=== PATIENT | female | born 1945 | race Caucasian/White ===

== ENCOUNTER 2019-08-04 09:48 | Emergency (ER) | payer MEDICARE, OTHER, SELFPAY ==
[2019-08-04 09:51] VITALS: BP 138/60; PULSE 75; RESP 17; TEMP 36.4; O2SAT 99; BMI 22.0
--- NOTE | 2019-08-04 09:51 | NURSING ---
NO OLD EKGS
--- NOTE | 2019-08-04 10:06 | RAD_ITS ---
STUDY: X-RAY CHEST REASON FOR EXAM: Female, 73 years old. CHEST PAIN SINCE SUNDAY, HX SCAR TISSUE IN B/L LUNGS TECHNIQUE: PA and lateral views of the chest. COMPARISON: None. FINDINGS: EKG electrodes are seen. Pectus excavatum deformity. Hyperinflation. There is no demonstrated pleural abnormality. Normal size heart. Normal mediastinum and sameera. Normal visualized pulmonary arteries. Normal visualized aortic arch and descending thoracic aorta. There is demineralization of the osseous structures. Normal visualized ribs, clavicles, and shoulders. There is no demonstrated abnormality of the visualized soft tissue structures of the upper abdomen. RAD/Chest PA and Lateral IMPRESSION: No acute abnormality is seen. Electronically Signed: Karson Cochran, at 10:26 EST , Service support ,
--- NOTE | 2019-08-04 10:06 | EKG12_ITS ---
Test Reason : CP Blood Pressure : / mmHG Vent. Rate : 070 BPM Atrial Rate : 070 BPM P-R Int : 108 ms QRS Dur : 072 ms QT Int : 396 ms P-R-T Axes : -16 058 012 degrees QTc Int : 427 ms Sinus rhythm with short NV Nonspecific ST-Segment Abnormality Confirmed by JOSE LUIS SINGH, MARCUS ([id number]), editor publications ISABELA CHESTER ([id number]) on 08/06/2019 9:02:23 AM Referred By: ITALO Confirmed By:MARCUS AMAYA MD
--- NOTE | 2019-08-04 10:07 | ED.DCSUM_ITS ---
History of Present Illness Chief Complaint: Chest Pain Informant: Patient Onset: Days - 2-3 Activity at onset: Rest - after lied down for bed Timing: Continuous, Waxes and wanes Quality: Aching Location: Left Chest - w/ radiation into left arm and shoulder and upper back, across shoulder blades Current Severity: Mild Maximum Severity: Moderate Worsened By: - - lying supine. Not Worsened By: Movement of Arm, Movement of Torso, Breathing, Coughing Relieved By: - - sitting up but does not resolve Associated Symptoms: Dyspnea - couple episodes. 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 She states since 2 days ago, she has had discomfort in the different place, more on the left side of her chest and radiating into her back and left shoulder and left arm, and more persistent. She states some of it comes and goes, waxes and wanes, but the jolanta st discomfort on the left side has been constant for over 2 days now. She felt a little short of breath at one point or another, but it was mild/transient, and all of her symptoms are nonpleuritic. She denies any recent hospitalization, surgery, prolonged immobilization, or travel out of the area. No history of DVT or PE. No leg pain or swelling. She took some ibuprofen and puffs from an inha ler the other night and it seemed to improve but she noted that lying down definitely makes the symptoms more prominent. 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 Her last stress test was around 2 years ago. She has never failed a stress test, and never needed a heart catheterization. CVD Risk Factors: Negative for: Hypertension, Diabetes, Hypercholesterolemia, Family History 1' </=55 - but several family members in their 70's of heart disease, Smoking - Past Medical History (1) Hypothyroidism Status: Chronic (2) Fibromyalgia Status: Chronic (3) Tarsal tunnel syndrome of right side Status: Chronic (4) Diastolic CHF, chronic Status: Chronic (5) GERD (gastroesophageal reflux disease) Status: Chronic Past Medical History - Allergies and Home Meds Allergies/Adverse Reactions: Allergies acetaminophen Allergy (Verified 08/04/19 09:50) Hives Primary Care Physician: Care Physician,No Primary [Primary Care Provider] - Surgical History: - - Oumar fundoplication Smoking Status: Never smoker Review of Systems General: Denies: Chills, Fever, Sweats Eyes: Denies: Visual changes - bilaterally, Diplopia ENT: Denies: Bilateral ear pain, Rhinorrhea, Sore throat Cardiovascular: Reports: Chest pain. Denies: Palpitations, Heart racing Respiratory: Reports: Dyspnea. Denies: Cough, Dyspnea on exertion Gastrointestinal: Denies: Abdominal pain, Nausea, Vomiting, Diarrhea, Melena, Hematochezia Genitourinary: Denies: Dysuria, Hematuria, Frequency Musculoskeletal: Reports: Back pain, Extremity Pain - left arm, not beyond elbow; no injury. Denies: Swelling Skin: Denies: Rash, Wounds Neurological: Denies: Headache, Weakness, Numbness Physical Exam Vital Signs/Narrative: Vital Signs Temp Pulse Resp BP Pulse Ox 08/04/19 09:51 97.6 F L 75 17 138/60 H 99 Inital Vital Signs reviewed: Yes General: Well nourished, Well developed, No Acute Distress - well-appearing Head: Normocephalic, Atraumatic Eyes: Perrl, EOMI ENT: Moist mucous membranes, No rhinorrhea Neck: Supple, Nontender, No lymphadenopathy, No JVD Cardiovascular: Regular rate, Regular rhythm, No murmurs, Normal S1, Normal S2, - - Equal bilateral 2+/4 radial pulses, symmetric. Negative for: Tachycardia Respiratory: No distress, CTA bilaterally, Chest nontender Abdomen: Soft, Nontender, Nondistended, Normal bowel sounds. Negative for: P ulsatile mass Back: Nontender, Normal Inspection Extremities: Nontender, No edema. Negative for: Calf Tenderness Skin: Normal color, No rash, No Trauma Neurological: Alert, Oriented x3, Cranial nerves II-XII grossly intact, Normal Strength, Normal Sensation, Normal Gait Psychological: Normal affect, Normal Mood Diagnostic/Tx/Re-eval Impressions Chest X-Ray 08/04/19 10:06 IMPRESSION: No acute abnormality is seen. Electronically Signed: Karson Cochran, at 10:26 EST , Service support , 08/04/19 10:06 Chest PA and Lateral [RAD] Stat Laboratory Results 08/04/19 08/04/19 10:05 10:05 WBC 4.6 RBC 4.40 Hgb 13.1 Hct 40.4 MCV 91.8 MCH 29.8 MCHC 32.4 RDW Std Deviation 44.5 H RDW Coeff of Edy 13.1 Plt Count 230 MPV 10.5 Immature Gran % (Auto) 0.200 Neut % (Auto) 58.7 Lymph % (Auto) 30.7 [place] % (Auto) 8.5 Eos % (Auto) 1.5 Baso % (Auto) 0.4 Absolute Neuts (auto) 2.7 Absolute Lymphs (auto) 1.41 Nucleated RBC % 0 Sodium 142 Potassium 3.9 Chloride 108 H Carbon Dioxide 30.0 Anion Gap 4 L BUN 23 H Creatinine 0.93 Estim Creat Clear Calc 49.20 Est GFR (MDRD) Af Amer 76 Est GFR (MDRD) Non-Af 63 BUN/Creatinine Ratio 24.7 H Glucose 81 Calcium 9.2 Troponin I < 0.015 - Rhythm Strip Rhythm Strip: Sinus Rhythm Rate: 70 Ectopy: None - EKG Initial EKG Interpretation: Sinus Rhythm, No Acute Injury Pattern - normal EKG Prior: No Prior Treatment: Aspirin, GI Cocktail Repeat Eval: Pain Free MICHAEL Risk: Age >/= 65 Score: 1 - Medical Decision Making Patient symptoms almost completely resolved after GI cocktail. She was also given aspirin. She noticed a very significant difference due to swallowing a GI cocktail. Her work-up is very unremarkable. Her EKG is normal, her enzymes are negative after 2 days of constant discomfort, and her chest x-ray shows no evidence of mediastinal widening. Patient is reassured I suspect this is esophageal in nature. I advised that she take a PPI for 2 weeks and follow-up, states she lives here now needs a PCP to whom she was referred, she was given the pamphlet with all of the area primary care doctor sign of her to choose. She is comfortable with this overall plan we discussed reasons to return. ED Disposition - Plan for ED Patient: Disposition: Home or Assisted Living Diagnosis: Non-cardiac chest pain Instructions: CHEST PAIN, NonCardiac Prescriptions: Pantoprazole Sodium [Protonix] 40 mg PO DAILY #14 tab Transmission Status: Pending to [id number] Referrals: Doctor,Your [STAFF PHYSICIAN] - 1-2 Weeks (see pamphlet attached)
[2019-08-04 10:18] LABS: Absolute Lymphocyte Count 1.41 X10^3/uL (0.83-4.51); Absolute Neutrophil Count 2.7 X10^3/uL (2.0-7.7); Basophil# 0.02 X10^3/uL; Basophil% 0.4 % (0-1); Eosinophil# 0.07 X10^3/uL; Eosinophils% 1.5 % (0-5); Hematocrit 40.4 % (37-47); Hemoglobin 13.1 g/dL (12.0-15.0); Lymphocyte # 1.41 X10^3/ul (4.0); Lymphocyte % 30.7 % (19-41); Mean Corp Hgb Conc 32.4 g/dL (32-36); Mean Corpuscular Hgb 29.8 pg (27.0-32.0); Mean Corpuscular Volume 91.8 fL (81-99); Mean Platelet Vol. 10.5 fl (6.2-12.0); Monocyte# 0.39 X10^3/uL; Monocyte% 8.5 % (0-10); NRBC Flagged by Analyzer 0 % (0-5); Neutrophil # 2.69 X10^3/uL (2.7-7.7); Neutrophil % 58.7 % (47-70); Platelet Count 230 K/mm3 (150-450); RBC Distribution Width CV 13.1 % (11.6-14.6); RBC Distribution Width SD 44.5 fl (35.1-43.9); White Blood Count 4.6 K/mm3 (4.4-11.0)
[2019-08-04 10:27] VITALS: O2SAT 99
[2019-08-04] MEDS: Aspirin 81 MG TAB.CHEW 324 MG PO (10:29)
[2019-08-04] MEDS: Mag Hydrox/Al Hydrox/Simeth 30 ML UDC PO (10:30)
[2019-08-04] MEDS: 0.9% Normal Saline 1,000 ML 150 ML IV (10:30)
[2019-08-04 10:31] LABS: Anion Gap 4 (5-15); BUN 23 mg/dL (7-18); BUN/Creat Ratio 24.7 RATIO (10-20); Calcium,Total 9.2 mg/dL (8.5-10.1); Chloride 108 mmol/L (98-107); Creatinine, Serum 0.93 mg/dL (0.55-1.02); EST Glomerular Filtration Rate 63 mL/min (>60); Est Glom Filt Rate - Afr Amer 76 mL/min (>60); Glucose 81 mg/dL (74-106); Potassium 3.9 mmol/L (3.5-5.1); Sodium Level 142 mmol/L (136-145)
[2019-08-04 11:21] VITALS: BP 141/69; PULSE 62; RESP 19; O2SAT 99
== END 2019-08-04 11:23 | disposition home or self-care (01) ==
LOC: ED 11:00
PROVIDERS: Emergency Provider Emergency Medicine
DX: R07.89 Other chest pain (principal); I50.32 Chronic diastolic (congestive) heart failure; R06.00 Dyspnea, unspecified; E03.9 Hypothyroidism, unspecified; M79.7 Fibromyalgia; K21.9 Gastro-esophageal reflux disease without esophagitis; Z79.899 Other long term (current) drug therapy
CPT/HCPCS: 71046; 80048; 84484; 85025; 93005; 96360; 99284; J7030; A4216

== ENCOUNTER → 2019-10-30 11:25 | Outpatient (CLI) | payer MEDICARE, OTHER, SELFPAY ==
[2019-10-29 09:54] VITALS: BMI 22.0
== END ==
PROVIDERS: Visit Provider Specialist
DX: R00.2 Palpitations (principal); R42 Dizziness and giddiness
CPT/HCPCS: 93225; 93226

== ENCOUNTER → 2019-11-27 | Outpatient (CLI) | payer MEDICARE, OTHER, SELFPAY ==
[2019-10-29 09:54] VITALS: BMI 22.0
[2019-11-27 13:09] LABS: Free T3 2.2 pg/mL (2.18-3.98); T4 Total, Thyroxin 11.4 ug/dL (4.8-13.9); Thyroid Stim Hormone (TSH) 0.67 uIU/mL (0.358-3.74)
== END | disposition home or self-care (01) ==
PROVIDERS: PCP Family Medicine; Referring Provider Specialist; Visit Provider Specialist
DX: E03.9 Hypothyroidism, unspecified (principal); R00.2 Palpitations
CPT/HCPCS: 36415; 84436; 84443; 84481

== ENCOUNTER → 2020-02-03 14:54 | Outpatient (CLI) | payer MEDICARE, OTHER, SELFPAY ==
[2019-10-29 09:54] VITALS: BMI 22.0
--- NOTE | 2020-02-03 14:55 | RAD_ITS ---
HISTORY: UPPER NECK AND BACK PAIN, NO KNOWN INJURY ADDITIONAL HISTORY: None provided. EXAMINATION/TECHNIQUE: XR Spine Thoracic 3 Views Number of images including paperwork: 4 COMPARISON: None FINDINGS: VERTEBRAE: No acute fracture. VERTEBRAL ALIGNMENT: No traumatic subluxation. DISKS AND JOINTS: Mild discogenic degenerative changes. SOFT TISSUES: Unremarkable paraspinous soft tissues. RAD/Thoracic Spine 3 Views IMPRESSION: No acute findings. Mild degenerative changes. at 2353 Reported and signed by: Brittany Bales MD Electronically Signed: Brittany Bales MD at 23:53 EDT Tel , Service support ,
--- NOTE | 2020-02-03 14:55 | RAD_ITS ---
HISTORY: UPPER NECK AND BACK PAIN, NO KNOWN INJURY ADDITIONAL HISTORY: None provided. EXAMINATION/TECHNIQUE: XR Spine Cervical 4 or 5 Views Number of images including paperwork: 5 COMPARISON: None FINDINGS: VERTEBRAE: No acute fracture. VERTEBRAL ALIGNMENT: No traumatic subluxation. DISKS AND JOINTS: Disc space heights are preserved. Mild facet and uncovertebral degenerative changes. SOFT TISSUES: Unremarkable paraspinous soft tissues. Artifact from hearing aids. RAD/Cerv Spine 4 or 5 Views IMPRESSION: No acute findings. Mild degenerative changes. at 2343 Reported and signed by: Brittany Bales MD Electronically Signed: Brittany Bales MD at 23:42 EDT Tel , Service support ,
== END ==
PROVIDERS: PCP Family Medicine; Referring Provider Family Medicine; Visit Provider Family Medicine
DX: M54.2 Cervicalgia (principal); M54.9 Dorsalgia, unspecified
CPT/HCPCS: 72050; 72072

== ENCOUNTER → 2020-06-01 11:00 | Outpatient (CLI) | payer MEDICARE, OTHER, SELFPAY ==
[2020-05-24 11:17] VITALS: BMI 21.9
--- NOTE | 2020-06-01 11:01 | ECHOD_ITS ---
Reason For Study: CP Procedure This was a 2D Doppler, Color Flow transthoracic echocardiogram. The study was technically difficult. Contrast injection was performed. Exam performed in department. Left Ventricle Normal LV size. The estimated ejection fraction is 60 %. No evidence for diastolic dysfunction. No regional wall motion abnormalities noted. Right Ventricle Normal RV size. Normal systolic function. Atria Normal left atrium. Normal right atrium. No doppler evidence for ASD. Mitral Valve There is no mitral valve stenosis. No mitral valve insufficiency. Tricuspid Valve There is no tricuspid stenosis. Trivial tricuspid valve insufficiency. Pulmonary artery systolic pressure is 25-30 mmHg. Aortic Valve Trisinus/trileaflet aortic valve. There is no aortic stenosis. No aortic valve insufficiency. Pulmonic Valve There is no pulmonic valvular stenosis. No pulmonic valve insufficiency. Great Vessels Normal aortic root. Pericardium/Pleural No pericardial effusion. Medication 22 gauge I.V. with prn adaptor inserted into right arm. Diluted definity 2ml given slow IV push to enhance endocardial definition. MMode/2D Measurements & Calculations LVIDd: 3.9 cm IVSd: 0.91 cm Ao root diam: 2.8 cm LVIDs: 2.2 cm LVPWd: 0.93 cm LA dimension: 2.8 cm RVDd: 3.3 cm FS: 43.2 % LAV(MOD-bp): 37.4 ml LA A4 area: 14.9 cm2 RA A4 area: 14.9 cm2 LAV(MOD-bp) Indexed: 22.5 ml/m2 LAV(MOD-sp2): 41.1 ml LAV(MOD-sp4): 32.3 ml Time Measurements MV dec time: 0.26 sec Doppler Measurements & Calculations MV E max herber: 85.7 cm/sec Lat Peak E' Herber: 11.0 cm/sec Med Peak E' Herber: 9.4 cm/sec MV A max herber: 71.0 cm/sec E/E' lat: 7.8 E/E' med: 9.2 MV E/A: 1.2 MV V2 max: 97.4 cm/sec MV P1/2t max herber: 97.4 cm/sec Ao V2 max: 141.9 cm/sec MV max P.8 mmHg MV P1/2t: 99.4 msec Ao max P.1 mmHg MV V2 mean: 47.6 cm/sec MV dec slope: 286.9 cm/sec2 MV mean P.1 mmHg MV V2 VTI: 32.7 cm MVA(P1/2t): 2.2 cm2 LV V1 max: 125.3 cm/sec PA V2 max: 100.2 cm/sec TR max herber: 273.5 cm/sec LV V1 max P.3 mmHg TR max P.9 mmHg Interpretation Summary The estimated ejection fraction is 60 %. No evidence for diastolic dysfunction. The study was technically difficult. Contrast injection was performed. Ordering Physician: Ludwig Clark Referring Physician: Moris Conway Performed By: Sherman Bardales RCS
== END ==
PROVIDERS: PCP Family Medicine; Referring Provider Specialist; Visit Provider Specialist
DX: R06.00 Dyspnea, unspecified (principal); R06.02 Shortness of breath; R07.9 Chest pain, unspecified
CPT/HCPCS: 93306; Q9957; A4216; C8929

== ENCOUNTER → 2020-07-16 13:23 | Outpatient (CLI) | payer MEDICARE, OTHER, SELFPAY ==
[2020-06-20 11:39] VITALS: BMI 23.3
[2020-07-16 15:43] LABS: Absolute Lymphocyte Count 1.41 X10^3/uL (0.83-4.51); Absolute Neutrophil Count 3.1 X10^3/uL (2.0-7.7); Basophil# 0.03 X10^3/uL; Basophil% 0.6 % (0-1); Eosinophil# 0.15 X10^3/uL; Eosinophils% 2.9 % (0-5); Hematocrit 39.1 % (37-47); Hemoglobin 12.2 g/dL (12.0-15.0); Lymphocyte # 1.41 X10^3/ul (4.0); Lymphocyte % 27.6 % (19-41); Mean Corp Hgb Conc 31.2 g/dL (32-36); Mean Corpuscular Hgb 29.3 pg (27.0-32.0); Mean Corpuscular Volume 93.8 fL (81-99); Mean Platelet Vol. 11.4 fl (6.2-12.0); Monocyte# 0.39 X10^3/uL; Monocyte% 7.6 % (0-10); NRBC Flagged by Analyzer 0 % (0-5); Neutrophil # 3.12 X10^3/uL (2.7-7.7); Neutrophil % 61.1 % (47-70); Platelet Count 242 K/mm3 (150-450); RBC Distribution Width CV 12.7 % (11.6-14.6); RBC Distribution Width SD 43.8 fl (35.1-43.9); Red Blood Count 4.17 M/mm3 (4.2-5.4); White Blood Count 5.1 K/mm3 (4.4-11.0)
[2020-07-16 15:54] LABS: Anion Gap 3 (5-15); BUN 18 mg/dL (7-18); BUN/Creat Ratio 20.7 RATIO (10-20); Calcium,Total 9.1 mg/dL (8.5-10.1); Chloride 110 mmol/L (98-107); Creatinine, Serum 0.87 mg/dL (0.55-1.02); EST Glomerular Filtration Rate 68 mL/min (>60); Est Glom Filt Rate - Afr Amer 82 mL/min (>60); Glucose 92 mg/dL (74-106); Sodium Level 143 mmol/L (136-145); Thyroid Stim Hormone (TSH) 0.24 uIU/mL (0.358-3.74)
== END ==
PROVIDERS: PCP Family Medicine; Visit Provider Family Medicine
DX: E03.9 Hypothyroidism, unspecified (principal); R53.83 Other fatigue
CPT/HCPCS: 36415; 80048; 84443; 85025

== ENCOUNTER → 2020-07-29 09:03 | Outpatient (CLI) | payer MEDICARE, OTHER, SELFPAY ==
[2020-06-20 11:39] VITALS: BMI 23.3
--- NOTE | 2020-07-29 12:40 | PFT ---
INTRODUCTION: The patient is a 74-year-old female that presents for pulmonary function studies secondary to a diagnosis of persistent cough. Respiratory therapy reports good patient effort. Bronchodilators were used during testing. INTERPRETATION: Forced expiration spirometry demonstrates no evidence of a large airways obstructive ventilatory defect. There was, nevertheless, a significant bronchodilator response noted. Spirograms are of good quality and plateau normally. Body plethysmography was performed and revealed an elevated RV to 140% of predicted, indicative of underlying air trapping. Diffusing capacity by single breath CO was within normal limits at 91% of predicted. IMPRESSION: Stigmata of small airways disease with significant bronchodilator response and evidence of air trapping.
== END ==
PROVIDERS: PCP Family Medicine; Referring Provider Family Medicine; Visit Provider Family Medicine
DX: J42 Unspecified chronic bronchitis (principal); R06.00 Dyspnea, unspecified
CPT/HCPCS: 94060; 94726; 94729

== ENCOUNTER → 2020-08-03 13:15 | Outpatient (CLI) | payer MEDICARE, OTHER, SELFPAY ==
[2020-06-20 11:39] VITALS: BMI 23.3
[2020-08-03 13:15] VITALS: PULSE 80; PULSE 81; PULSE 90; PULSE 93; PULSE 94; PULSE 97; PULSE 99; O2SAT 94; O2SAT 95; O2SAT 96; O2SAT 97; O2SAT 98; O2SAT 99
--- NOTE | 2020-08-03 14:55 | PCM.PSN.6M ---
PSN 6 Minute Walk Test - 6 Minute Walk Test 6 Minute Walk Test: 6 Minute Walk Test PSN:6-Minute Walk Test Start: 08/03/20 13:50 Freq: Status: Active Protocol: RESP.6MINW Document 08/03/20 13:15 [facility] (Rec: 08/03/20 13:53 [facility] [id number]) 6 Minute Walk Test Date Performed 08/03/20 Time Performed 13:15 Height 5 ft 2 in Weight: 58.967 kg Weight in Pounds 130.[address]: Dr Conway Assistive device used: None Pre-test Oxygen Delivery Method Room Air Pulse Ox (%) 95 Pulse Rate (60-100 beats/min) 81 Dyspnea Janet Scale (0-10) 0.5 Exertion Janet Scale (6-20) 6 1st minute Oxygen Delivery Method Room Air Pulse Ox (%) 97 Pulse Rate (60-100 beats/min) 90 2nd minute Oxygen Delivery Method Room Air Pulse Ox (%) 96 Pulse Rate (60-100 beats/min) 94 3rd minute Oxygen Delivery Method Room Air Pulse Ox (%) 99 Pulse Rate (60-100 beats/min) 93 4th minute Oxygen Delivery Method Room Air Pulse Ox (%) 94 Pulse Rate (60-100 beats/min) 97 5th minute Oxygen Delivery Method Room Air Pulse Ox (%) 98 Pulse Rate (60-100 beats/min) 99 6th minute Oxygen Delivery Method Room Air Pulse Ox (%) 97 Pulse Rate (60-100 beats/min) 97 Dyspnea Janet Scale (0-10) 3 Exertion Janet Scale (6-20) 11 Post-test Oxygen Delivery Method Room Air Pulse Ox (%) 98 Pulse Rate (60-100 beats/min) 80 Full Laps Walked 17 Partial Lap, Number of Tiles Walked 0 Total Distance Walked (ft) 1003 - Interpretation Interpretation: Patient was able to ambulate 1003 feet over the course of 6 minutes on room air with no assistive devices or breaks. The patient experienced no significant desaturation, but did have a peak heart rate of 99 bpm. These findings are consistent with deconditioning. - Recommendations Recommendations: No supplemental oxygen is indicated at this time.
== END ==
PROVIDERS: PCP Family Medicine; Referring Provider Family Medicine; Visit Provider Family Medicine
DX: J42 Unspecified chronic bronchitis (principal); R06.00 Dyspnea, unspecified
CPT/HCPCS: 94618

== ENCOUNTER → 2020-09-21 14:09 | Outpatient (CLI) | payer MEDICARE, OTHER, SELFPAY ==
[2020-09-21 13:07] VITALS: BMI 24.3
[2020-09-21 16:04] LABS: Absolute Lymphocyte Count 1.84 X10^3/uL (0.83-4.51); Absolute Neutrophil Count 4.1 X10^3/uL (2.0-7.7); Basophil# 0.03 X10^3/uL; Basophil% 0.4 % (0-1); Eosinophil# 0.14 X10^3/uL; Eosinophils% 2.1 % (0-5); Hematocrit 42.3 % (37-47); Hemoglobin 13.5 g/dL (12.0-15.0); Lymphocyte # 1.84 X10^3/ul (4.0); Lymphocyte % 27.6 % (19-41); Mean Corp Hgb Conc 31.9 g/dL (32-36); Mean Corpuscular Hgb 30.7 pg (27.0-32.0); Mean Corpuscular Volume 96.1 fL (81-99); Mean Platelet Vol. 11.1 fl (6.2-12.0); Monocyte% 7.5 % (0-10); NRBC Flagged by Analyzer 0 % (0-5); Neutrophil # 4.14 X10^3/uL (2.7-7.7); Neutrophil % 62.1 % (47-70); Platelet Count 271 K/mm3 (150-450); RBC Distribution Width CV 12.8 % (11.6-14.6); RBC Distribution Width SD 45.4 fl (35.1-43.9); White Blood Count 6.7 K/mm3 (4.4-11.0)
[2020-09-21 16:38] LABS: AST(SGOT) 20 U/L (15-37); Alanine Aminotransfer ALT/SGPT 22 U/L (13-56); Albumin, Serum 3.6 g/dL (3.2-5.0); Alkaline Phosphatase 88 U/L (45-117); Anion Gap 4 (5-15); BUN 24 mg/dL (7-18); BUN/Creat Ratio 32.7 RATIO (10-20); Calcium,Total 9.1 mg/dL (8.5-10.1); Chloride 107 mmol/L (98-107); Creatinine, Serum 0.73 mg/dL (0.55-1.02); EST Glomerular Filtration Rate 82 mL/min (>60); Est Glom Filt Rate - Afr Amer 100 mL/min (>60); Free T3 2.5 pg/mL (2.18-3.98); Globulin 3.5 g/dL (2.2-4.2); Glucose 84 mg/dL (74-106); Protein, Total 7.1 g/dL (6.4-8.2); Sodium Level 141 mmol/L (136-145); T4 Free Direct 1.46 ng/dL (0.76-1.46); T4 Total, Thyroxin 12.2 ug/dL (4.8-13.9); Thyroid Stim Hormone (TSH) 0.34 uIU/mL (0.358-3.74)
== END ==
PROVIDERS: PCP Family Medicine; Referring Provider Specialist; Visit Provider Specialist
DX: R06.00 Dyspnea, unspecified (principal)
CPT/HCPCS: 36415; 80053; 84436; 84439; 84443; 84481; 85025

== ENCOUNTER → 2020-10-04 09:47 | Outpatient (CLI) | payer MEDICARE, OTHER, SELFPAY ==
[2020-09-21 13:07] VITALS: BMI 24.3
--- NOTE | 2020-10-04 09:49 | ECHOD_ITS ---
Reason For Study: DYSPNEA Procedure This was a 2D Doppler, Color Flow transthoracic echocardiogram. The study was technically difficult. Exam performed in department. Left Ventricle Normal LV size. The estimated ejection fraction is 60 %. No evidence for diastolic dysfunction. No regional wall motion abnormalities noted. Right Ventricle Normal RV size. Normal systolic function. Atria Normal left atrium. Normal right atrium. No doppler evidence for ASD. Mitral Valve There is no mitral valve stenosis. Trivial mitral valve insufficiency. Tricuspid Valve There is no tricuspid stenosis. Trivial tricuspid valve insufficiency. Pulmonary artery systolic pressure is 25 mmHg. Aortic Valve Trisinus/trileaflet aortic valve. There is no aortic stenosis. No aortic valve insufficiency. Pulmonic Valve There is no pulmonic valvular stenosis. No pulmonic valve insufficiency. Great Vessels Normal aortic root. The inferior vena cava is dilated. Pericardium/Pleural No pericardial effusion. MMode/2D Measurements & Calculations LVIDd: 3.7 cm IVSd: 0.78 cm Ao root diam: 3.2 cm LVIDs: 2.6 cm LVPWd: 0.77 cm RVDd: 3.0 cm FS: 29.2 % LAV(MOD-bp): 18.6 ml LA A4 area: 10.0 cm2 LA dimension(2D): 2.4 cm LAV(MOD-bp) Indexed: 11.7 ml/m2 LAV(MOD-sp2): 21.1 ml LAV(MOD-sp4): 15.8 ml RA A4 area: 12.1 cm2 Time Measurements MV dec time: 0.38 sec Doppler Measurements & Calculations MV E max herber: 54.1 cm/sec Lat Peak E' Herber: 8.5 cm/sec Med Peak E' Herber: 5.4 cm/sec MV A max herber: 64.8 cm/sec E/E' lat: 6.4 E/E' med: 10.1 MV E/A: 0.84 Ao V2 max: 106.8 cm/sec LV V1 max: 95.2 cm/sec PA V2 max: 83.6 cm/sec Ao max P.6 mmHg LV V1 max P.6 mmHg TR max herber: 223.2 cm/sec TR max P.9 mmHg ECHO/Echo Complete Interpretation Summary The estimated ejection fraction is 60 %. No evidence for diastolic dysfunction. Trivial mitral valve insufficiency. The inferior vena cava is dilated Ordering Physician: Ludwig Clark Referring Physician: KATH CLINE Performed By: Tatiana Cortes, RDCS, RVT
== END ==
PROVIDERS: PCP Family Medicine; Referring Provider Specialist; Visit Provider Specialist
DX: R06.00 Dyspnea, unspecified (principal); R06.02 Shortness of breath
CPT/HCPCS: 93306

== ENCOUNTER → 2020-10-11 15:48 | Outpatient (CLI) | payer MEDICARE, OTHER, SELFPAY ==
[2020-10-05 14:21] VITALS: BMI 24.7
--- NOTE | 2020-10-11 15:51 | CT_ITS ---
INDICATION: chest pain, shortness of breath EXAMINATION: CTA Chest WO/W Contrast Injection TECHNIQUE: Helically acquired images were obtained of the chest following IV contrast. A radiation dose optimization technique was used for this scan. 3-D post processing images including MIPS were reviewed. IV Contrast dosage and agent: 100 cc [id number]-[id number] COMPARISON: None. FINDINGS: Lungs: Scattered subsegmental atelectasis. Minimal emphysematous changes. Mediastinum: The cardiomediastinal silhouette is not enlarged. No mediastinal, hilar or axillary adenopathy. Mild aortic arch and coronary artery calcifications. No obvious filling defect seen within the visualized pulmonary arteries. Pleura: Biapical pleural scarring. Bones/Soft tissues: Mild scattered degenerative changes of the visualized spine. Upper abdomen: Questionable bilateral hydronephrosis versus pelviectasis. CT/CTA Chest W/WO Contrast IMPRESSION: No acute abnormalities. Specifically, no evidence of pulmonary emboli to the segmental level. Questionable bilateral hydronephrosis versus pelviectasis. Electronically Signed: Edmond Collier MD at 22:38 EDT Tel , Service support ,
== END ==
PROVIDERS: PCP Family Medicine; Referring Provider Specialist; Visit Provider Specialist
DX: R07.9 Chest pain, unspecified (principal); R06.00 Dyspnea, unspecified; R00.2 Palpitations; R42 Dizziness and giddiness
CPT/HCPCS: 71275; Q9967

== ENCOUNTER → 2020-10-22 09:59 | Outpatient (CLI) | payer MEDICARE, OTHER, SELFPAY ==
[2020-10-05 14:21] VITALS: BMI 24.7
--- NOTE | 2020-10-22 10:02 | US_ITS ---
STUDY: RENAL ULTRASOUND - COMPLETE REASON FOR EXAM: Female, 75 years old. PELVICALIECTASIS TECHNIQUE: Ultrasound evaluation of the kidneys was performed with real-time and static mancia-scale imaging. COMPARISON: None. FINDINGS: RIGHT KIDNEY: Normal location of the right kidney, which is normal in size. The right kidney measures 10.7 cm x 6.1 cm x 4 cm. There is a normal cortex of the right kidney. The renal cortex measures 1.2 cm. There is no right renal mass or cyst. There are no right renal calculi. There is moderate hydronephrosis of the right kidney. DISTAL RIGHT URETER: There is non-visualization of the distal right ureter. There is no demonstrated right ureterovesical junction calculus. There is a visualized right ureteral jet. LEFT KIDNEY: Normal location of the left kidney, which is normal in size. The left kidney measures 10.97 x 5.5 cm x 5.8 cm. There is a normal cortex of the left kidney. The renal cortex measures 1.3 cm. There is no left renal mass or cyst. There is a 3 mm x 4 mm x 3 mm nonobstructive calculus in the lower pole calyx of the left kidney. There is moderate hydronephrosis of the left kidney. DISTAL LEFT URETER: There is non-visualization of the distal left ureter. There is no demonstrated left ureterovesical junction calculus. There is a visualized left ureteral jet. BLADDER: The distended urinary bladder has a volume of 197.5 ml. There is a normal wall thickness of the distended urinary bladder. There is no demonstrated mass within the urinary bladder. There are no demonstrated bladder calculi. US/Kidney and Bladder IMPRESSION: Moderate degree of bilateral hydronephrosis. 3 mm x 4 mm x 3 mm nonobstructive calculus in the lower pole calyx of the left kidney. Electronically Signed: Karson Cochran MD at 13:09 EDT , Service support ,
== END ==
PROVIDERS: PCP Family Medicine; Referring Provider Family Medicine; Visit Provider Family Medicine
DX: N28.89 Other specified disorders of kidney and ureter (principal)
CPT/HCPCS: 76770

== ENCOUNTER → 2020-10-27 09:56 | Outpatient (CLI) | payer MEDICARE, OTHER, SELFPAY ==
[2020-10-05 14:21] VITALS: BMI 24.7
--- NOTE | 2020-10-27 10:02 | MRI_ITS ---
STUDY: MRI LUMBAR SPINE WITHOUT CONTRAST REASON FOR EXAM: Female, 75 years old. RADICULOPATHY, TECHNIQUE: Standardized fat and water weighted pulse sequences were obtained in the sagittal and axial planes. COMPARISON: None FINDINGS: T12-L1: Normal endplates. Normal disc height, hydration and morphology. Normal bilateral facet joints. Normal central canal and bilateral lateral recesses. Normal bilateral intervertebral neural foramina. Normal lumbar lordosis. Mild dextroscoliosis centered at L2/L3. Normal conus medullaris that terminates at the L1/L2. L1-2: Normal endplates. Normal disc height, hydration and morphology. Normal bilateral facet joints. Normal central canal and bilateral lateral recesses. Normal bilateral intervertebral neural foramina. L2-3: Mild bilobed disc protrusion produces mild spinal stenosis and mild bilateral neural foraminal stenosis. L3-4: Mild bilateral facet hypertrophy and ligament flavum hypertrophy. Mild bilobed disc protrusion produces mild spinal stenosis and mild bilateral neural foraminal stenosis. L4-5: Small right foraminal protrusion produces mild right neural foraminal stenosis. No central spinal stenosis. L5-S1: Moderate broad disc protrusion produces moderate spinal stenosis with moderate bilateral lateral recess stenosis with abutment of the S1 nerve roots bilaterally and moderate right neural foraminal stenosis and mild left neural foraminal stenosis. Normal visualized sacral ala. Normal visualized paraspinous soft tissue structures. MRI/Spine Lumbar (Routine) IMPRESSION: Multilevel degenerative changes, as described above. Electronically Signed: John Benitez MD at 16:02 EDT Tel , Service support ,
== END ==
PROVIDERS: PCP Family Medicine
DX: S33.5XXA Sprain of ligaments of lumbar spine, initial encounter (principal); M54.17 Radiculopathy, lumbosacral region; X58.XXXA Exposure to other specified factors, initial encounter; Y93.9 Activity, unspecified; Y92.9 Unspecified place or not applicable; Y99.9 Unspecified external cause status
CPT/HCPCS: 72148

== ENCOUNTER → 2020-11-02 | Outpatient (CLI) | payer MEDICARE, OTHER, SELFPAY ==
[2020-10-05 14:21] VITALS: BMI 24.7
== END | disposition home or self-care (01) ==
LOC: LABSPEC 16:53
PROVIDERS: PCP Family Medicine; Referring Provider Nurse Practitioner Adult Health
DX: R82.998 Other abnormal findings in urine (principal)
CPT/HCPCS: 87086; 87088

== ENCOUNTER → 2020-11-11 10:39 | Outpatient (CLI) | payer MEDICARE, OTHER, SELFPAY ==
[2020-10-05 14:21] VITALS: BMI 24.7
--- NOTE | 2020-11-11 10:43 | CT_ITS ---
STUDY: CT ABDOMEN AND PELVIS WITH AND WITHOUT CONTRAST REASON FOR EXAM: Female, 75 years old. HYDRONEPHROSIS RADIATION DOSAGE (If Supplied By Facility): CTDIvol = ( 12.80 ) mGy, DLP = ( 1509.55 ) mGycm TECHNIQUE: Transaxial images were obtained from the dome of the diaphragm to the symphysis pubis without oral contrast. IV 100mL Isovue-300 was administered. Sagittal and coronal images were reconstructed. Individualized dose optimization techniques were used for this CT. COMPARISON: None. FINDINGS: Minimal increased linear markings at the left lung base suggestive of either linear atelectasis and/or scarring. The visualized portions of the heart are within normal limits. Normal liver. Normal gallbladder and extrahepatic biliary system. Normal spleen. Normal pancreas. Normal bilateral adrenal glands. There is evidence of bilateral parapelvic cysts. Normal visualized stomach. Normal small intestine. Normal colon. The appendix is visualized and appears normal. There is scattered atherosclerotic calcification of the abdominal aorta, without a demonstrated aneurysm. Normal inferior vena cava. Normal retroperitoneum. Normal urinary bladder. The patient be thickening of the endometrium measuring 17.9 mm. Correlation with ultrasound is recommended. There is a small umbilical hernia containing fat. Disc space narrowing and degeneration at the L5-S1 level. Status post bilateral total hip replacement limiting the evaluation of the pelvic structures. CT/CT Abd/Pelvis W/WO Contrast IMPRESSION: Bilateral parapelvic renal cysts. Findings suggestive of thickening of the endometrium measuring 17.9 mm. Electronically Signed: Karson Cochran MD at 12:48 EDT , Service support ,
== END ==
PROVIDERS: PCP Family Medicine; Referring Provider Nurse Practitioner Adult Health; Visit Provider Nurse Practitioner Adult Health
DX: N13.39 Other hydronephrosis (principal)
CPT/HCPCS: 74178; Q9967

== ENCOUNTER 2020-12-30 10:20 | Inpatient (IN) | payer MEDICARE, OTHER, SELFPAY ==
[2020-11-22 09:44] VITALS: BMI 24.3
--- NOTE | 2020-12-21 10:57 | EKG12_ITS ---
Test Reason : PRE-OP Blood Pressure : / mmHG Vent. Rate : 061 BPM Atrial Rate : 061 BPM P-R Int : 102 ms QRS Dur : 070 ms QT Int : 410 ms P-R-T Axes : -32 045 053 degrees QTc Int : 412 ms Unusual P axis, possible ectopic atrial rhythm Abnormal ECG Confirmed by JOSE LUIS SINGH, MARCUS ([id number]), graphic editor JOSÉ CAMEJO ([id number]) on 12/22/2020 2:00:48 PM Referred By: Jeffery Dominguez Confirmed By:MARCUS AMAYA MD
[2020-12-21 11:44] LABS: Absolute Lymphocyte Count 1.44 X10^3/uL (0.83-4.51); Absolute Neutrophil Count 3.5 X10^3/uL (2.0-7.7); Basophil# 0.04 X10^3/uL; Basophil% 0.7 % (0-1); Eosinophil# 0.06 X10^3/uL; Eosinophils% 1.1 % (0-5); Hematocrit 41.1 % (37-47); Hemoglobin 13.1 g/dL (12.0-15.0); Lymphocyte # 1.44 X10^3/ul (0.83-4.51); Lymphocyte % 26.1 % (19-41); Mean Corp Hgb Conc 31.9 g/dL (32-36); Mean Corpuscular Hgb 30.3 pg (27.0-32.0); Mean Corpuscular Volume 94.9 fL (81-99); Mean Platelet Vol. 10.5 fl (6.2-12.0); Monocyte# 0.42 X10^3/uL; Monocyte% 7.6 % (0-10); NRBC Flagged by Analyzer 0 % (0-5); Neutrophil # 3.54 X10^3/uL (2.7-7.7); Neutrophil % 64.3 % (47-70); Platelet Count 256 K/mm3 (150-450); RBC Distribution Width CV 13.2 % (11.6-14.6); RBC Distribution Width SD 46.1 fl (35.1-43.9); Red Blood Count 4.33 M/mm3 (4.2-5.4); White Blood Count 5.5 K/mm3 (4.4-11.0)
[2020-12-21 12:01] LABS: Magnesium 2.2 mg/dL (1.6-2.6)
[2020-12-21 12:18] LABS: Anion Gap 5 (5-15); BUN 21 mg/dL (7-18); BUN/Creat Ratio 28.6 RATIO (10-20); Calcium,Total 9.2 mg/dL (8.5-10.1); Chloride 109 mmol/L (98-107); Creatinine, Serum 0.74 mg/dL (0.55-1.02); EST Glomerular Filtration Rate 82 mL/min (>60); Est Glom Filt Rate - Afr Amer 99 mL/min (>60); Glucose 83 mg/dL (74-106); Potassium 4.4 mmol/L (3.5-5.1); Sodium Level 141 mmol/L (136-145); Thyroid Stim Hormone (TSH) 0.69 uIU/mL (0.358-3.74)
[2020-12-21 12:33] LABS: HIV - WCH Non-Reactive (Nonreactive)
[2020-12-22 05:07] LABS: HEPATITIS B SURFACE AG Negative (Negative); Hepatitis A AB, Total Positive (Negative); Hepatitis A IgM Antibody Negative (Negative); Hepatitis B Core AB IgM Negative (Negative); Hepatitis B Core Ab Total Negative (Negative); Hepatitis C Ab <0.1 s/co ratio (0.0-0.9)
[2020-12-22 07:26] LABS: Hep B Surface Antibodies Non Reactive (.)
[2020-12-24 10:02] VITALS: BMI 24.3
--- NOTE | 2020-12-29 15:46 | HP.PCM_ITS ---
History and Physical Date of Admission: 12/30/20 [facility] [id number] [facility] [address] [place] [address] [phone] OFFICE VISITDate of Service: 12/24/20 MR#:[id number]:[id number]: SONI FAUST ARe #:[id number]:1945 Provider:Dr. Jeffery Dominguez, DOAge/Sex: 75/F Location:Jody:Signed Intake Vital Signs 12/24/20 10:02 BMI 24.3 Intake Visit Reasons: lumbar spine Allergies latex Allergy (Intermediate, Verified 12/24/20 10:04) rash nickel Allergy (Intermediate, Verified 12/24/20 10:04) sores, bleeding, infection sodium lauryl sulfate Allergy (Intermediate, Verified 12/24/20 10:04) canker sores acetaminophen Allergy (Mild, Verified 12/24/20 10:04) Hives grass pollen Allergy (Mild, Verified 12/24/20 10:04) Itching black dye Allergy (Intermediate, Uncoded 10/05/20 14:28) blisters, itching black or pink makeup Allergy (Intermediate, Uncoded 11/22/20 10:02) Blisters poison leodan Allergy (Intermediate, Uncoded 11/22/20 10:02) Rash, itching Medications cholecalciferol (vitamin D3) 25 mcg (1,000 unit) tablet 25 mcg PO DAILY 10/21/19 [History Confirmed 12/24/20] cyanocobalamin (vitamin B-12) 500 mcg tablet 500 mcg PO DAILY 10/21/19 [History Confirmed 12/24/20] multivitamin 1 tab PO DAILY 10/21/19 [History Confirmed 12/24/20] amitriptyline 10 mg tablet 10 mg PO DAILY PRN 09/13/20 [History Confirmed 12/24/20] furosemide 20 mg tablet 20 mg PO DAILY PRN 09/13/20 [History Confirmed 12/24/20] levothyroxine 100 mcg tablet 100 mcg PO MOTUWETHFRSA tab 11/22/20 [History Confirmed 12/24/20] famotidine 10 mg PO PRN PRN 12/16/20 [History Confirmed 12/24/20] PFSH Medical History Arthritis Asthma Back pain Cardiology follow-up encounter Chest pain Chronic cough Chronic neck and back pain Diastolic CHF, chronic Difficulty balancing when standing Dizziness Dyspnea on exertion Fatigue Fibromyalgia Gastric reflux Gastroparesis GERD (gastroesophageal reflux disease) Hemorrhoids History of irregular heartbeat History of pain when walking History of stress test (~10/08/17) Hx of echocardiogram (~10/04/20) Hypothyroidism Injury of back Migraine headache Palpitations Peripheral neuropathy Scarring of lung Severe headache Shoulder pain Tarsal tunnel syndrome of right side Thyroid disease Wears glasses Wears hearing aid Surgical History History of bilateral total hip arthroplasty History of dilation and curettage History of eye surgery History of hip replacement History of Oumar fundoplication Family History Mother Myocardial infarction, Onset Age: 57 Father Myocardial infarction, Onset Age: 79 Brother Myocardial infarction Sister Myocardial infarction Breast cancer COPD (chronic obstructive pulmonary disease) Social History Smoking Status: Never smoker alcohol intake: never substance use type: does not use caffeine: Yes Type: coffee Number of servings: 1 HPI lumbar spine Details: Parts of this documentation were recorded by a scribe, this documentation accurately reflects the service provided and the decisions made by me, Dr. Jeffery Dominguez, DO 12/24/20 1001. SONI FAUST is a 75 year old F here today for a pre op for her surgery on 12/30/20. Soni is here in the company of her for her preop. And also the H&P. We went over her surgery at length how it would be done what to expect etc. I answered all of her questions. I reviewed her MRI scan. We will be doing a laminectomy at L5-S1 on the right side first. I will then decide whether I need to open the opposite side or not. Her predominant pain is in her right leg and not her left. If we get enough out from the right side I may not have to do a laminae on the left. We will decide that intraoperatively. History and physical: Merissa is a 75-year-old female that has a 10-year history of having pain down her right side of her low back that radiates down her right leg. It has affected her the last few years as far as her activities and she is tired of it. Denies any bowel or bladder dysfunction. She denies history of unexplained weight loss night fever sweats or chills. ROS Const All systems reviewed & are unremarkable except as noted in H Eyes Reports system reviewed and no additional complaints, except as documented ENT Reports system reviewed and no additional complaints, except as documented Card Reports system reviewed and no additional complaints, except as documented Resp Reports system reviewed and no additional complaints, except as documented GI Reports system reviewed and no additional complaints, except as documented Reports system reviewed and no additional complaints, except as documented Musc Reports system reviewed and no additional complaints, except as documented Skin/Breast Reports system reviewed and no additional complaints, except as documented Neuro Yes system reviewed and no additional complaints, except as documented Psych Reports system reviewed and no additional complaints, except as documented Endo Reports system reviewed and no additional complaints, except as documented Arnav/Lymph Reports system reviewed and no additional complaints, except as documented Aller/Immun Reports system reviewed and no additional complaints, except as documented Supplemental Info Examination of the spine she has positive straight leg raising on the right side less on the left. She has no true weakness of her lower extremities. Her Achilles reflexes are absent bilaterally. She has 1+ patellar reflexes bilaterally. She has no long tract signs. Clonus is absent Babinski's are down going. Coding Level of Care Code Off vis,est,level 2 Diagnoses HNP (herniated nucleus pulposus), lumbar M51.26 Time Spent (min) 25 Assessment and Plan Assessment and Plan (1) HNP (herniated nucleus pulposus), lumbar
[2020-12-30] VITALS (14 sets, daily range): BP systolic 96–142; BP diastolic 46–64; PULSE 51–92; RESP 14–16; TEMP 35.5–36.5; O2SAT 95–100; BMI 24.5
[2020-12-30] MEDS: Lactated Ringers 1,000 ML 100 ML IV ×3 (06:10→16:15)
[2020-12-30 06:50] LABS: Bedside Glucose 86 mg/dL (70-110)
--- NOTE | 2020-12-30 07:30 | DISC_PTH ---
PATIENT: TARSHA FAUST LOC: MS3 U#:[id number] AGE/SX: 75/F ROOM: [facility] RE12/30/[address]: Dr. Jeffery Dominguez DO : 1945 BED: 1 DIS: 12/31/2020 SPEC #: [id number] RECD: 12/30/20 11:28 STATUS: GLEN AMIRAH #: [id number] LLUVIA: 12/30/20 07:[address]: Jeffery Dominguez DEPT: SURGICAL PATHOLOGY RECD BY: Elvie Fernandez ENTERED: 12/30/20 11:50 SP TYPE: DISC OTHR DR: Dr. Moris Conway MD Tissues: Intervertebral disc, NOS Procedures: Surgery Specimen Level III HEADER OPERATION: ERAS, laminectomy lumbar L5-S1, bilateral PRE-OP DIAGNOSIS: Herniated nucleus polposus, lumbar TISSUE SUBMITTED: Lumbar disc MICROSCOPIC DIAGNOSIS Lumbar disc at L5-S1, discectomy: Fragments of intervertebral disc with degenerative change. Polarizable crystalline debris suggestive of pseudogout. AM:ann 12/31/2020 MICROSCOPIC DESCRIPTION Slides are reviewed. GROSS DESCRIPTION Received in fixative is one container labeled with the patient's name and designated lumbar disc. The specimen consists of multiple pieces of morris, indurated tissue that in aggregate measure 2 x 1.5 x 0.3 cm. The specimen is totally submitted in one cassette. / SJ:ann 12/30/20 TC:5 CPT: 20633
[2020-12-30] MEDS: Cefazolin 2 GM in 0.9% Normal Saline 100 ML IV (07:41)
[2020-12-30] MEDS: THROMBIN (RECOMBINANT) 20,000 UNIT VIAL 20000 UNIT TOPICAL (08:30)
--- NOTE | 2020-12-30 08:40 | RAD_ITS ---
STUDY: X-RAY - LUMBAR SPINE REASON FOR EXAM: Female, 75 years old. LAMINECTOMY L5-S1 BILATERAL TECHNIQUE: 1 view(s) of the lumbar spine were obtained. COMPARISON: None FINDINGS: The localization instrument is seen posterior to the L5-S1 disc space level. RAD/Spine 1 View Any Level IMPRESSION: The localization instrument is seen posterior to the L5-S1 disc space level. Electronically Signed: Karson Cochran MD at 10:03 EDT , Service support ,
--- NOTE | 2020-12-30 10:35 | OP.PCM_ITS ---
Report of Operation Date of Procedure: 12/30/20 Description of Surgical Findings:: Preoperative diagnosis: Herniated disc L5-S1 on the right Postoperative diagnosis: The same Procedure: Lumbar laminectomy discectomy L5-S1 on the right CPT code #95260 Surgeon: Dr. Dominguez product safety technical assistant: Nir SENA , Vicky SENA Anesthesia: General endotracheal anesthesia administered by [facility] Estimated blood loss less than 20 cc Drains: None Complications: None Procedure: Patient was taken to the OR she was placed under general endotracheal anesthesia. A Harding catheter was inserted. Neuro monitoring placed all their leads and the patient. We then placed in the prone position on the Marcelino frame and after appropriate positioning with care to protect her bony prominences her breasts her cervical spine and facial features the ulnar nerves of both elbows and the brachial plexus the back was prepped and draped standard fashion. I then made a small longitudinal incision directly over L5-S1. Subcutaneous tissues were incised length of skin incision. I then opened the lumbar fascia to the right of the spinous processes and elevated the paravertebral muscles off the lamina of L5 and the top of the lamina of S1. An intraoperative x-ray was taken with a marker placed. We were indeed at the right level. Small Ashtyn retractor was then put in place I then removed all soft tissues off of the ligamentum flavum with a small curette and Cristi rongeurs. I then release ligamentum flavum off the underside of the lamina of L5. Double-action rongeurs were used to thin down the lamina I then used 45 degree Kerrison rongeurs to perform the medial adenectomy on the right side. I then used curettes to release the ligamentum flavum off the top of the S1 lamina and around the sides. Failed the top of the ligamentum flavum in its midline and used a hockey-stick under the to cut the back of it and release it I then used 45 degree Kerrison rongeurs to remove it all the way to the lateral recesses. In this fashion I was able to identify the S1 nerve root and the dura we retracted that medialward exposing the disc protrusion. Note that it was probably combination of the protrusion and the lateral recess. That was giving her her pain. We had made a small square cut in the annulus and removed some disc from within the disc space with pituitary rongeurs. Note that thorough irrigation was carried out every 10 to 15 minutes in the course of the case. He had a very dry field at the end of the case and it was felt that a drain was not necessary. I had good control of the bleeding with bipolar cautery and thrombin-soaked Gelfoam. We then placed a amniotic membrane directly over the nerve root and dura to prevent adhesions in the future. Gelfoam was placed over the top of that. We then began closure of the fascia with [id number] suture using #1 Vicryl. Subcutaneous tissues were then reapproximated using a 2-0 Vicryl interrupted fashion and the skin was approximated using skin clips sterile dressings were then applied. Patient was then recovered in the OR she was moved to her hospital bed and taken to recovery in satisfactory condition. This interoperative summary on Soni Hardy. This is Dr. Dominguez dictating.
[2020-12-30] MEDS: Morphine 2 MG/ML Syringe IV ×2 (14:15→17:28)
[2020-12-30] MEDS: Glycerin/Hypromellose/PEG400 15 ml Bottle 2 DRP EACH EYE (14:23)
--- NOTE | 2020-12-30 15:03 | PN.HOSP_ITS ---
Documented by User: Lauren Adams NP, QUALITY CONTROL PROJECTIONIST-C 12/30/20 15:30 Subjective Subjective Patient seen and examined. Underwent laminectomy. Hospitalist services consulted for medical management. Postoperative pain controlled at this time. Patient complains of left eye discomfort and burning with opening her eye, feels like her eye is scratched. Denies other symptoms or complaints. Objective Data Objective Data Vital Signs: Vital Signs Temp Pulse Resp BP Pulse Ox 97.6 F L 55 L 16 120/49 L 100 12/30/20 14:17 12/30/20 14:17 12/30/20 14:17 12/30/20 14:17 12/30/20 14:17 Oxygen Flow Rate (L/min) 6 Oxygen Delivery Method Room Air Weight: 134 lb 7.712 oz Body Mass Index (BMI) 24.5 Intake & Output: Intake and Output for Last 24 Hours 12/28/20 12/29/20 12/30/20 23:59 23:59 23:59 Intake Total 1213.5 / 1213.5 Output Total 1040 / 1040 Balance 173.5 / 173.5 Lab / Micro Data Result Diagrams: 12/21/20 11:16 12/21/20 11:16 Labs: Laboratory Results - last 24 hr 12/30/20 06:10: POC Glucose 86 Micro: Microbiology 12/29/20 11:04 Interface Orders SARS-CoV-2 Antigen (Rapid) - Final 12/21/20 11:16 Swab (Method) Nasal Screen MRSA/MSSA - Final Radiography Diagnostic Testing: Radiology Impression Spine X-Ray 12/30/20 08:40 IMPRESSION: The localization instrument is seen posterior to the L5-S1 disc space level. Electronically Signed: Karson Cochran MD at 10:03 EDT , Service support , Physical Exam Const alert, oriented x3 and no apparent distress Orientation / Consciousness: awake, oriented to person, oriented to place and oriented to time HEENT normocephalic and moist oral mucous membranes Eyes PERRL, EOMs intact bilaterally and conjunctivae normal Neck no lymphadenopathy Resp normal respiratory effort and clear to auscultation bilaterally Cardio regular rate, regular rhythm and no murmurs Peripheral Pulses: pulses 2+ throughout GI normal to inspection, nondistended, normoactive bowel sounds, non-tender and non-distended Extremity normal to inspection Skin no rashes or lesions noted Lesions: no lesions Rashes: no rashes Trauma: no lacerations or abrasions Neuro CN's II-XII intact bilaterally, no focal motor deficits, no sensory deficits noted and deep tendon reflexes 2+ bilaterally Psych mental status grossly normal and affect normal Assessment & Plan Assessment/Plan (1) Diastolic CHF, chronic: PLAN: 1. Herniated disc L5-S1 on the right status post lumbar laminectomy discectomy L5-S1 on the right by Dr. Dominguez- Managment per surgery. 2. Chronic heart failure with preserved ejection fraction-echocardiogram 10/04/2020 demonstrated an EF of 60%. Continue home Lasix regimen. Continue home Lasix regimen. 3. Orthostatic dizziness/chronic palpitations-follows with cardiology. Previous Holter monitor revealed rare PVCs and PACs. Beta-marya was discussed by cardiology however patient did not wish to add this during previous visit. 4. GERD-continue famotidine. 5. Chronic asthma-follows with pulmonary medicine. As needed albuterol aerosol. 6. Hypothyroidism-continue Synthroid regimen. DVT prophylaxis-SCDs This patient was seen by CHUNG Harper under the supervision of Dr. Bourne. Documented by User: Dr. Nani Bourne MD 12/30/20 17:29 Objective Data Lab / Micro Data Result Diagrams: 12/21/20 11:16 12/21/20 11:16
[2020-12-30] MEDS: Petrolatum,White 3.75GM OPTH.TUBE 1 APPLIC OPHTHALMIC (16:12)
[2020-12-30] MEDS: Cefazolin 1 GM/50 ML BAG IV ×2 (16:38→22:57)
[2020-12-30] MEDS: Ensure Surgery 237 ML LIQUID PO (16:42)
[2020-12-30] MEDS: Ondansetron 4 MG/2 ML Vial IV (17:28)
[2020-12-30] MEDS: Famotidine 20 MG Tablet PO (22:57)
[2020-12-30] MEDS: Senna/Docusate Sodium 1 Tablet 2 TABLET PO (22:57)
[2020-12-31 02:20] VITALS: BP 112/56; PULSE 55; RESP 16; TEMP 36.4; O2SAT 99
[2020-12-31] MEDS: oxyCODONE 5 MG Tablet PO ×2 (02:41→09:37)
[2020-12-31] MEDS: Lactated Ringers 1,000 ML 100 ML IV (03:20)
--- NOTE | 2020-12-31 06:22 | PCM.PN.HOSP ---
Objective Data Objective Data Vital Signs: Vital Signs Temp Pulse Resp BP Pulse Ox 97.5 F L 55 L 16 112/56 L 99 12/31/20 02:20 12/31/20 02:20 12/31/20 02:20 12/31/20 02:20 12/31/20 02:20 Oxygen Flow Rate (L/min) 6 Oxygen Delivery Method Room Air Weight: 134 lb 7.712 oz Body Mass Index (BMI) 24.5 Intake & Output: Intake and Output for Last 24 Hours 12/29/20 12/30/20 12/31/20 23:59 23:59 23:59 Intake Total 2078.5 / 2478.5 1860 / 1860 Output Total 1390 / 1790 700 / 700 Balance 688.5 / 688.5 1160 / 1160 Lab / Micro Data Result Diagrams: 12/21/20 11:16 12/21/20 11:16 Labs: Laboratory Results - last 24 hr 12/30/20 06:10: POC Glucose 86 Micro: Microbiology 12/29/20 11:04 Interface Orders SARS-CoV-2 Antigen (Rapid) - Final 12/21/20 11:16 Swab (Method) Nasal Screen MRSA/MSSA - Final Radiography Diagnostic Testing: Radiology Impression Spine X-Ray 12/30/20 08:40 IMPRESSION: The localization instrument is seen posterior to the L5-S1 disc space level. Electronically Signed: Karson Cochran MD at 10:03 EDT , Service support ,
[2020-12-31] MEDS: Cefazolin 1 GM/50 ML BAG IV (06:32)
[2020-12-31] MEDS: Levothyroxine 100 MCG Tablet PO (06:32)
[2020-12-31 09:05] VITALS: BP 103/38; PULSE 68; RESP 18; TEMP 36.6; O2SAT 99
[2020-12-31] MEDS: Famotidine 20 MG Tablet PO (09:09)
[2020-12-31] MEDS: Senna/Docusate Sodium 1 Tablet 2 TABLET PO (09:09)
[2020-12-31] MEDS: Ensure Surgery 237 ML LIQUID PO (09:11)
[2020-12-31 09:12] VITALS: O2SAT 99
--- NOTE | 2020-12-31 09:24 | PCM.PN.HOSP ---
Documented by User: Lauren Adams NP, FINANCIAL ADMINISTRATION OFFICER-C 12/31/20 09:29 Subjective Subjective Patient seen and examined. Denies further left eye discomfort. Denies significant post operative pain. Ambulating without difficulty. Objective Data Objective Data Vital Signs: Vital Signs Temp Pulse Resp BP Pulse Ox 97.9 F 68 18 103/38 L 99 12/31/20 09:05 12/31/20 09:05 12/31/20 09:05 12/31/20 09:05 12/31/20 09:12 Oxygen Flow Rate (L/min) 6 Oxygen Delivery Method Room Air Weight: 134 lb 7.712 oz Body Mass Index (BMI) 24.5 Intake & Output: Intake and Output for Last 24 Hours 12/29/20 12/30/20 12/31/20 23:59 23:59 23:59 Intake Total 2078.5 / 2478.5 2293.33 / 2293.33 Output Total 1390 / 1790 1000 / 1000 Balance 688.5 / 688.5 1293.33 / 1293.33 Lab / Micro Data Result Diagrams: 12/21/20 11:16 12/21/20 11:16 Micro: Microbiology 12/29/20 11:04 Interface Orders SARS-CoV-2 Antigen (Rapid) - Final 12/21/20 11:16 Swab (Method) Nasal Screen MRSA/MSSA - Final Radiography Diagnostic Testing: Radiology Impression Spine X-Ray 12/30/20 08:40 IMPRESSION: The localization instrument is seen posterior to the L5-S1 disc space level. Electronically Signed: Karson Cochran MD at 10:03 EDT , Service support , Physical Exam Const alert, oriented x3 and no apparent distress Orientation / Consciousness: awake, oriented to person, oriented to place and oriented to time HEENT normocephalic and moist oral mucous membranes Eyes PERRL, EOMs intact bilaterally and conjunctivae normal Neck no lymphadenopathy Resp normal respiratory effort and clear to auscultation bilaterally Cardio regular rate, regular rhythm and no murmurs Peripheral Pulses: pulses 2+ throughout GI normal to inspection, nondistended, normoactive bowel sounds, non-tender and non-distended Extremity normal to inspection Skin no rashes or lesions noted Lesions: no lesions Rashes: no rashes Trauma: no lacerations or abrasions Neuro CN's II-XII intact bilaterally, no focal motor deficits, no sensory deficits noted and deep tendon reflexes 2+ bilaterally Psych mental status grossly normal and affect normal Assessment & Plan Assessment/Plan (1) Diastolic CHF, chronic: PLAN: 1. Herniated disc L5-S1 on the right status post lumbar laminectomy discectomy L5-S1 on the right by Dr. Dominguez- Management per surgery. 2. Chronic heart failure with preserved ejection fraction-echocardiogram 10/04/2020 demonstrated an EF of 60%. Continue home Lasix regimen. 3. Orthostatic dizziness/chronic palpitations-follows with cardiology. Previous Holter monitor revealed rare PVCs and PACs. Beta-marya was discussed by cardiology however patient did not wish to add this during previous visit. 4. GERD-continue famotidine. 5. Chronic asthma-follows with pulmonary medicine. As needed albuterol aerosol. 6. Hypothyroidism-continue Synthroid regimen. DVT prophylaxis-SCDs Discharge plan: Stable for discharge home from a medical standpoint. This patient was seen by CHUNG Harper under the supervision of Dr. Bourne. Documented by User: Dr. Nani Bourne MD 12/31/20 13:40 Objective Data Lab / Micro Data Result Diagrams: 12/21/20 11:16 12/21/20 11:16
--- NOTE | 2020-12-31 10:30 | CASEMGMT ---
RN CM Face to Face with patient for initial transition planning/care coordination assessment. RN CM introduced self and role at [facility]. Patient sitting in chair, alert and oriented. Patient willing to participate in assessment and is able to answer all questions appropriately. Care providers, pharmacy, and demographics verified. Patient wishes to discharge home, denies need for home health at this time. Patient states she has no further needs or concerns at this time. CM to follow for discharge planning needs that may arise. PCP: Man Specialists: slime Dominguez; Amber, coding machine operator Preferred Pharmacy: [facility] Insurance: [employer], [employer] other Prescription Benefit: yes Living Will/HPOA: yes, Babak Hardy LNOK: Living Arrangements: Patient lives with in a single story home with 4 steps and railing to enter the home. Patient states she is independent at home. Transportation: self/ DME/HHC: Patient states she has raised toilet, cane, walker, hip kit, and grab bars at home. Denies further needs at this time. Disposition Plan: Patient to discharge home with family support and follow-up plans in place. Marcia GALICIA, RN, CM
--- NOTE | 2020-12-31 12:30 | DCINST_ITS ---
Discharge Instructions Follow Up Care Test Results: Test results from this visit will be discussed in further detail at your follow-up appointment, if applicable. Discharge Plan Admission Admit Date/Time: 12/30/20 10:20 Primary Reason for Your Visit: surgery Attending Provider: Jeffery Dominguez Primary Care Provider: Moris Conway Consulting Providers: Nani Bourne Instructions Patient Instructions: ED Chest Pain, Noncardiac Discharge Orders/Prescriptions Prescriptions: No Action multivitamin Tablet 1 tab PO DAILY RF: 0 cyanocobalamin (vitamin B-12) [Vitamin B-12] 500 mcg tablet 500 mcg PO DAILY RF: 0 cholecalciferol (vitamin D3) 25 mcg (1,000 unit) tablet 25 mcg PO DAILY RF: 0 furosemide [Lasix] 20 mg tablet 20 mg PO DAILY PRN (Reason: Edema) RF: 0 amitriptyline 10 mg tablet 10 mg PO DAILY PRN (Reason: FIBROMYALGIA) RF: 0 hydrocodone-ibuprofen 7.5-200 mg tablet 1 tab PO Q6H PRN (Reason: pain) 10 Days Qty: 40 RF: 0 levothyroxine 100 mcg tablet 100 mcg PO MOTUWETHFRSA RF: 0 famotidine 10 mg Tablet 10 mg PO PRN PRN (Reason: GERD) RF: 0 Other Ambulatory Orders: 12 Lead EKG (Routine) Timeframe: [id number] Facility: [facility] - Location: Cardiovascular Services Ordered By: Dr. Jeffery Dominguez Referrals / Follow Up: Moris Conway MD [Primary Care Provider] - Disposition Disposition (needs filled in before D/C Order can be placed): Home, Self Care
--- NOTE | 2020-12-31 12:34 | DS.PCM_ITS ---
Providers Date of Admission: 12/30/20 Primary Care Physician: Dr. Moris Conway MD Consultations 12/30/20 10:21 Consult: Hospitalist Routine Consulting Provider: Nani Bourne Reason for Consult: Medical Management EMERGENT Consult: No MD Notified: Yes Date Notified: 12/30/20 Time Notified: 10:21 Method of Notification: Answering Service Reason For Visit: LAMINECTOMY LUMBAR, L5-S1 BILATERAL Diagnosis Discharge Diagnosis (1) Diastolic CHF, chronic: Status: Chronic Code(s): I50.32 - Chronic diastolic (congestive) heart failure Plan: Mrs. Hardy was admitted on December 30, 2020 is being discharged on December 31, 2020. Yesterday the day of admission she underwent laminectomy at the L5-S1 level on the right side. Tolerated the procedure well. Postoperatively she has been stable her leg pain is completely gone. Dressing is dry. Neurologically she is intact. She was given postop laminectomy protocol regarding her activities. It was discussed in front of her and they know what to do and when to do it. Her dressing comes off in 4 days and 5days she will shower. She will not drive for 3 weeks. Already has an appointment for follow-up in my office. He already has her pain medicine at home. Is the end of discharge summary on Soni Hardy. This is Dr. Dominguez dictating. Medications at Discharge Home Medications cholecalciferol (vitamin D3) 25 mcg (1,000 unit) tablet 25 mcg PO DAILY 10/21/19 cyanocobalamin (vitamin B-12) 500 mcg tablet 500 mcg PO DAILY 10/21/19 multivitamin 1 tab PO DAILY 10/21/19 amitriptyline 10 mg tablet 10 mg PO DAILY PRN 09/13/20 furosemide 20 mg tablet 20 mg PO DAILY PRN 09/13/20 levothyroxine 100 mcg tablet 100 mcg PO MOTUWETHFRSA tab 11/22/20 famotidine 10 mg PO PRN PRN 12/16/20 hydrocodone 7.5 mg-ibuprofen 200 mg tablet 1 tab PO Q6H PRN 10 Days #40 tab 12/24/20 Weight / BMI Weight Weight: 134 lb 7.712 oz Body Mass Index (BMI) 24.5 ABG / Lab / Microbiology Data Result Diagrams: 12/21/20 11:16 12/21/20 11:16 Microbiology: Microbiology 12/29/20 11:04 Interface Orders SARS-CoV-2 Antigen (Rapid) - Final 12/21/20 11:16 Swab (Method) Nasal Screen MRSA/MSSA - Final Meaningful Use Info Meaningful Use Diagnoses (Choose all that apply): None applicable Discharge Plan Admission Admit Date/Time: 12/30/20 10:20 Primary Reason for Your Visit: surgery Attending Provider: Jeffery Dominguez Primary Care Provider: Moris Conway Consulting Providers: Nani Bourne Instructions Patient Instructions: ED Chest Pain, Noncardiac Discharge Orders/Prescriptions Prescriptions: No Action multivitamin Tablet 1 tab PO DAILY RF: 0 cyanocobalamin (vitamin B-12) [Vitamin B-12] 500 mcg tablet 500 mcg PO DAILY RF: 0 cholecalciferol (vitamin D3) 25 mcg (1,000 unit) tablet 25 mcg PO DAILY RF: 0 furosemide [Lasix] 20 mg tablet 20 mg PO DAILY PRN (Reason: Edema) RF: 0 amitriptyline 10 mg tablet 10 mg PO DAILY PRN (Reason: FIBROMYALGIA) RF: 0 hydrocodone-ibuprofen 7.5-200 mg tablet 1 tab PO Q6H PRN (Reason: pain) 10 Days Qty: 40 RF: 0 levothyroxine 100 mcg tablet 100 mcg PO MOTUWETHFRSA RF: 0 famotidine 10 mg Tablet 10 mg PO PRN PRN (Reason: GERD) RF: 0 Other Ambulatory Orders: 12 Lead EKG (Routine) Timeframe: [id number] Facility: [facility] - Location: Cardiovascular Services Ordered By: Dr. Jeffery Dominguez Referrals / Follow Up: Moris Conway MD [Primary Care Provider] - Disposition Disposition (needs filled in before D/C Order can be placed): Home, Self Care
[2020-12-31 12:50] VITALS: BP 108/46; PULSE 67; RESP 18; TEMP 36.7; O2SAT 98
== END 2020-12-31 14:18 | disposition home or self-care (01) | DRG 519 ==
LOC: MS3 10:23 → SDC 10:51 → MS3 10:51
PROVIDERS: Anesthesiology; Admitting Provider Orthopaedic Surgery; PCP Family Medicine; Referring Provider Orthopaedic Surgery; Visit Provider Orthopaedic Surgery
PROC: 0SB40ZZ Excision of Lumbosacral Disc, Open Approach (ICD-10-PCS; CPT 63030; principal; 2020-12-30 07:00)
DX: M51.26 Other intervertebral disc displacement, lumbar region (principal); I11.0 Hypertensive heart disease with heart failure; I50.32 Chronic diastolic (congestive) heart failure; Z20.822 Contact with and (suspected) exposure to COVID-19; G62.9 Polyneuropathy, unspecified; J45.909 Unspecified asthma, uncomplicated; M79.7 Fibromyalgia; K21.9 Gastro-esophageal reflux disease without esophagitis; E03.9 Hypothyroidism, unspecified; Z79.890 Hormone replacement therapy; Z79.899 Other long term (current) drug therapy; Z96.643 Presence of artificial hip joint, bilateral
CPT/HCPCS: 36415; 72020; 80048; 82962; 83735; 84443; 85025; 86703; 86704; 86705; 86706; 86708; 86709; 86803; 87081; 87340; 87426; 88304; 93005; 97162; 97530; 99251; C9803; J7120; G0463; J2405; J3475

== ENCOUNTER → 2021-05-21 09:15 | Outpatient (CLI) | payer MEDICARE, OTHER, SELFPAY ==
--- NOTE | 2021-05-21 09:17 | CT_ITS ---
HISTORY: OCCIPITAL NEURALGIA OF RIGHT SIDE. TECHNIQUE: Helically acquired images were obtained of the cervical spine. 2D reformatted images were reviewed. A radiation dose optimization technique was used for this scan. # of images incl. paperwork: 422. IV Contrast dosage and agent: None. COMPARISON: XR 02/03/2020. FINDINGS: VERTEBRAE: No acute fracture identified. Unfused posterior arch of C1. VERTEBRAL ALIGNMENT: No significant anterior or posterior subluxation. Preservation of the cervical lordosis. DISCS: Degenerative discogenic changes. Posterior disc bulge osteophyte complexes with uncovertebral and facet arthropathy. C2-3: Minimal narrowing of thecal sac. C3-4: Mild central canal stenosis. C4-5: Minimal narrowing of thecal sac. Mild left foraminal narrowing. C5-6: Mild central canal stenosis and bilateral foraminal narrowing. C6-7: Minimal narrowing of the thecal sac. SOFT TISSUES: No prevertebral soft tissue swelling. Mild biapical scarring. CT/Spine Cervical without Contras IMPRESSION: No evidence of acute cervical spinal fracture or dislocation. Mild degenerative disc disease as described above. Individualized dose optimization techniques were used for this CT. at 1648 Reported and signed by: Jacquie Berry MD Electronically Signed: Jacquie Berry MD at 16:47 EST Tel , Service support ,
== END ==
PROVIDERS: PCP Nurse Practitioner Primary Care
DX: M54.81 Occipital neuralgia (principal)
CPT/HCPCS: 72125

== ENCOUNTER 2021-06-16 18:52 | Emergency (ER) | payer MEDICARE, OTHER, SELFPAY ==
[2021-06-16 18:52] VITALS: BP 120/80; PULSE 97; RESP 16; TEMP 37.2; O2SAT 95; BMI 24.8
--- NOTE | 2021-06-16 19:14 | EDS_ITS ---
HPI History of Present Illness Chief Complaint: General Illness Informant: patient Narrative Narrative: Patient has about 3 or 4 days of slight runny nose and a sore throat. She states she coughs a little bit now and then but no sputum production. She is not short of breath at all. She does not have myalgias. She has no nausea vomiting diarrhea. She is able to eat and drink. She was seen in urgent care today. She had a rapid test for Covid that was negative. She was told to come here to get another test because they know she is positive. Patient states she does not feel bad. Patient tells me her only medical problem is thyroid disease Medications are Synthroid Multiple allergies reviewed No recent surgeries Non-smoker lives with . [facility] Medical History Arthritis Asthma Back pain Cardiology follow-up encounter Chest pain Chronic cough Chronic neck and back pain Diastolic CHF, chronic Difficulty balancing when standing Dizziness Dyspnea on exertion Fatigue Fibromyalgia Gastric reflux Gastroparesis GERD (gastroesophageal reflux disease) Hemorrhoids History of irregular heartbeat History of pain when walking History of stress test (~10/08/17) Hx of echocardiogram (~10/04/20) Hypothyroidism Injury of back Migraine headache Palpitations Peripheral neuropathy Scarring of lung Severe headache Shoulder pain Tarsal tunnel syndrome of right side Thyroid disease Wears glasses Wears hearing aid Home Medications cholecalciferol (vitamin D3) 25 mcg (1,000 unit) tablet 25 mcg PO DAILY 10/21/19 [History Last Taken Unknown] cyanocobalamin (vitamin B-12) 500 mcg tablet 500 mcg PO DAILY 10/21/19 [History Last Taken Unknown] multivitamin 1 tab PO DAILY 10/21/19 [History Last Taken Unknown] furosemide 20 mg tablet 20 mg PO DAILY PRN 09/13/20 [History Last Taken Unknown] levothyroxine 100 mcg tablet 100 mcg PO MOTUWETHFRSA tab 11/22/20 [History Last Taken 12/30/20 100 MCG] famotidine 10 mg tablet 10 mg PO PRN PRN 02/09/21 [History Last Taken Unknown] Allergy/AdvReac Type Severity Reaction Status Date / Time latex Allergy Intermediate rash Verified 06/16/21 18:55 nickel Allergy Intermediate sores, Verified 06/16/21 18:55 bleeding, infection sodium lauryl sulfate Allergy Intermediate canker Verified 06/16/21 18:55 sores acetaminophen Allergy Mild Hives Verified 06/16/21 18:55 grass pollen Allergy Mild Itching Verified 06/16/21 18:55 black dye Allergy Intermediate blisters, Uncoded 06/16/21 18:55 itching black or pink makeup Allergy Intermediate Blisters Uncoded 06/16/21 18:55 poison leodan Allergy Intermediate Rash, Uncoded 06/16/21 18:55 itching Family History Mother Myocardial infarction, Onset Age: 57 Father Myocardial infarction, Onset Age: 79 Brother Myocardial infarction Sister Myocardial infarction Breast cancer COPD (chronic obstructive pulmonary disease) Surgical History History of bilateral total hip arthroplasty History of dilation and curettage History of eye surgery History of hip replacement History of Oumar fundoplication Social History Smoking Status: Never smoker alcohol intake: never substance use type: does not use caffeine: Yes Type: coffee Number of servings: 1 ROS ROS ED Constitutional Constitutional ED: Denies fever(s) or subjective ENT ENT ED: Reports rhinorrhea and sore throat; Denies ear pain Cardiovascular Cardiovascular: Denies chest pain or palpitations Respiratory/Chest Respiratory/Chest: Reports cough; Denies dyspnea or sputum Gastrointestinal Gastrointestinal: Denies abdominal pain, diarrhea, nausea or vomiting Genitourinary Genitourinary ED: Denies dysuria Musculoskeletal Musculoskeletal: Denies myalgias Integumentary Denies rash Neurologic Neurologic: Denies headache(s) Psychiatric Psychiatric: Denies depression Endocrine Endocrinology: Denies polydipsia or polyuria Allergic/Immunologic Allergic/Immunologic ED: Denies mouth swelling or urticaria EXAM Physical Exam Const Vital Signs: 06/16/21 18:52 Temperature 99 F Temperature Source Temporal Pulse Rate 97 Respiratory Rate 16 Blood Pressure 120/80 Blood Pressure Mean 93 Pulse Ox 95 Oxygen Delivery Method Room Air Positive well nourished and well developed General Appearance ED: well developed and NAD; Negative for cyanotic or diaphoretic HEENT HEENT Narrative: Oropharynx is minimally red. There is no exudate. There is no swelling or asymmetry. Uvula is small but normal. Voice is normal. Swallowing is normal. Negative for trauma or tenderness Eyes EOMs intact bilaterally General Eye ED: Negative for pale conjunctiva or scleral icterus Neck no JVD Chest Wall inspection of chest normal Resp normal respiratory effort and clear to auscultation bilaterally Resp Narrative: Patient does have an occasional/rare dry cough. However, her lungs are completely clear bilaterally all the way to the bases. Effort and Inspection: Negative for pain with movement Auscultation: Negative for rales, rhonchi or wheezes Cardio regular rate, regular rhythm and no murmurs GI normal to inspection, nondistended, normoactive bowel sounds and non-tender Palpation: soft Back/Spine no CVA tenderness Extremity General Extremety ED: Negative for edema or tenderness General Extremity: Negative for edema Neuro Sensorium / Orientation: alert Psych mental status grossly normal Skin no rashes or lesions noted MDM MDM MDM Narrative Medical decision making narrative: I discussed options with the patient. I stated I could send off a PCR test. This has a greater sensitivity and specificity. We may not get the result back immediately. Patient is comfortable just going home. She states she does not feel ill. She just wants to know if she has Covid. We will send this test off at this time. She and her should quarantine until they know results of this test and should quarantine for 14 days if positive. Test for Covid did come back positive. Lab Data Labs: Laboratory Results - last 24 hr 06/16/21 20:16 COVID-19 (KELLY) Detected Discharge Plan Triage Chief Complaint: General Illness ED Provider: Justus Anderson Dx/Rx/DC Orders Clinical Impression: Sore throat, COVID-19 Instructions: Coronavirus Disease 2019 (COVID-19): Caring for Yourself or Others Prescriptions: No Action multivitamin Tablet 1 tab PO DAILY RF: 0 cyanocobalamin (vitamin B-12) [Vitamin B-12] 500 mcg tablet 500 mcg PO DAILY RF: 0 cholecalciferol (vitamin D3) 25 mcg (1,000 unit) tablet 25 mcg PO DAILY RF: 0 furosemide [Lasix] 20 mg tablet 20 mg PO DAILY PRN (Reason: Edema) RF: 0 levothyroxine 100 mcg tablet 100 mcg PO MOTUWETHFRSA RF: 0 famotidine 10 mg tablet 10 mg PO PRN PRN (Reason: GERD) RF: 0 Primary Care Provider: Tati Thompson NP Referrals: Podlogar,Tati PUBLIC RELATIONS COUNSELOR, PUBLIC RELATIONS COUNSELOR-C [Primary Care Provider] - 3-5 Days if not improving Disposition Disposition: Home, Self Care Discharge Date/Time: 06/16/21 20:24
== END 2021-06-16 20:24 | disposition home or self-care (01) ==
LOC: ED 19:28
PROVIDERS: Emergency Provider Emergency Medicine; PCP Nurse Practitioner Primary Care
DX: U07.1 COVID-19 (principal); I50.32 Chronic diastolic (congestive) heart failure; J45.909 Unspecified asthma, uncomplicated; E03.9 Hypothyroidism, unspecified; M79.7 Fibromyalgia; M19.90 Unspecified osteoarthritis, unspecified site; M54.9 Dorsalgia, unspecified; M54.2 Cervicalgia; G89.29 Other chronic pain; K21.9 Gastro-esophageal reflux disease without esophagitis; Z79.890 Hormone replacement therapy; Z79.899 Other long term (current) drug therapy; Z96.643 Presence of artificial hip joint, bilateral
CPT/HCPCS: 87635; 99282; U0005; U0003

== ENCOUNTER 2021-12-03 14:17 | Emergency (ER) | payer MEDICARE, SELFPAY ==
[2021-12-03 14:18] VITALS: BP 124/47; PULSE 68; RESP 16; TEMP 35.9; O2SAT 99; BMI 24.3
--- NOTE | 2021-12-03 15:05 | RAD_ITS ---
EXAM: XR RIGHT SHOULDER COMPLETE, 2 OR MORE VIEWS CLINICAL INDICATION: Trauma TECHNIQUE: Two or more views of the right shoulder. This report was created using [employer] report generation technology. COMPARISON: None. FINDINGS: BONES/JOINTS: Unremarkable. No acute fracture. No subluxation. Normal alignment. Preservation of the joint space. No sclerotic or destructive changes observed. SOFT TISSUES: Unremarkable. No soft tissue swelling or gas. No radiopaque foreign body. RAD/Shoulder min 2 Views IMPRESSION: No acute abnormality. Electronically Signed: Trevin Evans MD at 16:13 EDT ,
--- NOTE | 2021-12-03 15:05 | RAD_ITS ---
EXAM: XR PELVIS, 1 OR 2 VIEWS CLINICAL INDICATION: fall TECHNIQUE: Frontal view of the pelvis. This report was created using [employer] report generation technology. COMPARISON: None. FINDINGS: BONES/JOINTS: Bilateral hip prosthesis in place in satisfactory position. No evidence of hardware failure. No acute fracture or subluxation. SOFT TISSUES: Unremarkable. No soft tissue swelling or gas. RAD/Pelvis 1 or 2 Views IMPRESSION: No acute abnormality. Electronically Signed: Trevin Evans MD at 16:08 EDT ,
--- NOTE | 2021-12-03 15:06 | EDS_ITS ---
HPI HPI - Fall History of Present Illness Chief Complaint: Fall Informant: patient and family Occured/Mechanism Occurred: Today Mechanism/Context: Yes same level fall and Yes trip Usually ambulates: Without assistance Pain/Injury Pain Location: pelvis and back Quality of Pain: Dull and Aching Current Severity: Mild Maximum Severity: Mild Associated Symptoms Associated Symptoms: Negative for Parasthesias, Weakness, Loss of function, Inability to ambulate, Loss of consciousness or Amnesia Narrative Narrative: 76-year-old female history of prior lumbar back surgery about a year ago and bilateral hips replaced in the past. Today was walking backwards tripped over a chair and fell landing on her buttock complaining of lower back pain and pelvis pain. No LOC. She is on no blood thinners. She does not complain of any head or neck pain. Prior to the fall she felt fine she has not been ill recently. Prior similar symptoms: No Recent Illness/Hospitalization: No PFSH PFSH Medical History Arthritis Asthma Back pain Cardiology follow-up encounter Chest pain Chronic cough Chronic neck and back pain Diastolic CHF, chronic Difficulty balancing when standing Dizziness Dyspnea on exertion Fatigue Fibromyalgia Gastric reflux Gastroparesis GERD (gastroesophageal reflux disease) Hemorrhoids History of irregular heartbeat History of pain when walking History of stress test (~10/08/17) Hx of echocardiogram (~10/04/20) Hypothyroidism Injury of back Migraine headache Palpitations Peripheral neuropathy Scarring of lung Severe headache Shoulder pain Tarsal tunnel syndrome of right side Thyroid disease Wears glasses Wears hearing aid Home Medications multivitamin 1 tab PO DAILY 10/21/19 [History Last Taken Unknown] levothyroxine 100 mcg tablet 100 mcg PO MOTUWETHFRSA 11/22/20 [History Last Taken 12/30/20 100 MCG] Allergy/AdvReac Type Severity Reaction Status Date / Time latex Allergy Intermediate rash Verified 12/03/21 14:18 nickel Allergy Intermediate sores, Verified 12/03/21 14:18 bleeding, infection sodium lauryl sulfate Allergy Intermediate canker Verified 12/03/21 14:18 sores acetaminophen Allergy Mild Hives Verified 12/03/21 14:18 grass pollen Allergy Mild Itching Verified 12/03/21 14:18 black dye Allergy Intermediate blisters, Uncoded 12/03/21 14:18 itching black or pink makeup Allergy Intermediate Blisters Uncoded 12/03/21 14:18 poison leodan Allergy Intermediate Rash, Uncoded 12/03/21 14:18 itching Family History Mother Myocardial infarction, Onset Age: 57 Father Myocardial infarction, Onset Age: 79 Brother Myocardial infarction Sister Myocardial infarction Breast cancer COPD (chronic obstructive pulmonary disease) Surgical History History of bilateral total hip arthroplasty History of dilation and curettage History of eye surgery History of hip replacement History of Oumar fundoplication Social History Smoking Status: Never smoker alcohol intake: never substance use type: does not use caffeine: Yes Type: coffee Number of servings: 1 ROS ROS ED ROS Narrative No recent illness. Review of Systems ROS Unobtainable: Denies due to encephalopathy Constitutional Constitutional ED: Denies chills Eyes Eyes: Denies blurry vision ENT ENT ED: Denies ear pain Cardiovascular Cardiovascular: Denies chest pain Respiratory/Chest Respiratory/Chest: Denies cough Gastrointestinal Gastrointestinal: Denies abdominal pain Genitourinary Genitourinary ED: Denies dysuria Musculoskeletal Musculoskeletal: Reports back pain; Denies arthralgias Integumentary Denies abscess Neurologic Neurologic: Denies headache(s) Psychiatric Psychiatric: Denies anxiety Endocrine Endocrinology: Denies polydipsia Hematologic/Lymphatic Hematologic/Lymphatic: Denies easy bleeding Allergic/Immunologic Allergic/Immunologic ED: Denies mouth swelling EXAM Physical Exam Narrative Exam Narrative: 8-year-old male no acute distress. Vital signs stable afebrile. Sitting upright in bed. Family at bedside. H EENT exam to his right reactive light. There is no signs of trauma to her face. No significant signs of trauma to her scalp. There is no hematoma. There is only minimal tenderness to the left scalp but there is no swelling or bruising. No laceration. C-spine nontender. Trachea midline. Lungs clear to auscultation. Heart regular rhythm no murmur. Chest wall nontender. Abdomen soft nontender. Pelvic girdle intact. Upper extremities are nontender normal range of motion and parts cleaner strength. Bilaterally. She can flex and extend both hips. There is no shortening or rotation. Flexion-extension of both knees ankles and feet are unremarkable. Lower extremities are nontender. Back cervical and thoracic spine nontender she has lower lumbar and sacral tenderness. Posterior right buttock tenderness. There is no bruising. Neurologically she is awake and alert with no focal motor deficits. GCS of 15. Const Vital Signs: 12/03/21 14:18 12/03/21 14:51 12/03/21 14:51 Temperature 96.7 F L Temperature Source Temporal Pulse Rate 68 Respiratory Rate 16 Respiratory Effort Normal Non-Labored Blood Pressure 124/47 H Blood Pressure Mean 72 Pulse Ox 99 Oxygen Delivery Method Room Air Room Air Room Air Positive well nourished and well developed; Negative for obese, cachectic or contractures General Appearance ED: well developed; Negative for cachectic or contractures Nutritional Appearance: Negative for cachectic or obese HEENT Reports normocephalic trauma, contusion and tenderness; Negative for hematoma Eyes PERRL and EOMs intact bilaterally Neck full ROM, no lymphadenopathy and supple Chest Wall inspection of chest normal and palpation of chest normal Resp normal respiratory effort, no retractions and clear to auscultation bilaterally Cardio regular rate, regular rhythm, S1 normal heart sound and S2 normal heart sound GI non-tender and non-distended Inspection: Negative for abdominal distention Auscultation: normoactive bowel sounds Palpation: soft Back/Spine no CVA tenderness General Back: Negative for CVA tenderness Cervical Spine: Negative for cervical spine tenderness Thoracic Spine / Upper Back: Negative for ROM limited or pain with ROM Lumbar Spine / Lower Back: lumbar spinal tenderness and paraspinal muscle tenderness Neuro oriented x3, moves all extremities and no focal motor deficits Raquel Coma Scale: document GCS findings Spontaneous Obeys Commands Oriented 15 Sensorium / Orientation: alert, oriented to person, oriented to place and or iented to time; Negative for orientation impaired, confused, lethargic or stuporous Motor Exam: strength 5/5 throughout Psych mental status grossly normal and thought process normal Mood & Affect: Negative for depressed Skin Lesions: no lesions Rashes: no rashes Trauma: Negative for abrasion MDM MDM MDM Narrative Medical decision making narrative: 76-year-old tripped and fell landing on her buttock. Complaining of lower back and pelvis pain. X-ray being obtained. Also of the right shoulder. She has full range of motion of the right shoulder no deformity. She did not want a thing for pain. Repeat exam patient is doing well at 4:58 PM will be discharged home. We did go over x-ray results. Radiography Diagnostic Testing: Clinical Impression(s) from Imaging Studies Pelvis X-Ray 12/03/21 15:05 IMPRESSION: No acute abnormality. Electronically Signed: Trevin Evans MD at 16:08 EDT , Shoulder X-Ray 12/03/21 15:05 IMPRESSION: No acute abnormality. Electronically Signed: Trevin Evans MD at 16:13 EDT , Lumbar Spine X-Ray 12/03/21 15:21 IMPRESSION: No acute abnormality. No interval change. Electronically Signed: Trevin Evans MD at 16:12 EDT , Lumbar spine x-ray 3 view shows no acute abnormality. Interpreted by myself and the radiologist. Pelvis x-ray single view shows no acute abnormality interpreted myself and the radiologist. Right shoulder x-ray 3 view shows no acute abnormality. No fracture. Interpreted by myself and radiologist. Discharge Plan Triage Chief Complaint: Fall ED Provider: Shaq Casey Dx/Rx/DC Orders Prescriptions: No Action multivitamin Tablet 1 tab PO DAILY levothyroxine 100 mcg tablet 100 mcg PO MOTUWETHFRSA Primary Care Provider: Tati Thompson NP Referrals: Tati Thompson NP, GRINDING MACHINE OPERATOR PORTABLE-C [Primary Care Provider] -
--- NOTE | 2021-12-03 15:21 | RAD_ITS ---
EXAM: XR LUMBOSACRAL SPINE, 2 OR 3 VIEWS CLINICAL INDICATION: Trauma TECHNIQUE: Frontal and lateral views of the lumbar spine and sacrum. This report was created using [employer] report generation technology. COMPARISON: November 22, 2020 FINDINGS: VERTEBRAE: Mild dextroscoliosis is unchanged. Diffuse osteoporosis. No acute fracture or subluxation. No spondylolisthesis. No significant facet arthropathy. DISC SPACES: Mild narrowing of the L5-S1 disc space. RAD/Lumbar Spine 2 or 3 Views IMPRESSION: No acute abnormality. No interval change. Electronically Signed: Trevin Evans MD at 16:12 EDT ,
== END 2021-12-03 17:08 | disposition home or self-care (01) ==
PROVIDERS: Emergency Provider Emergency Medicine; PCP Nurse Practitioner Primary Care; Visit Provider Emergency Medicine
DX: M54.50 Low back pain, unspecified (principal); I50.32 Chronic diastolic (congestive) heart failure; R10.2 Pelvic and perineal pain; W18.09XA Striking against other object with subsequent fall, initial encounter; Y93.01 Activity, walking, marching and hiking; J45.909 Unspecified asthma, uncomplicated; M19.90 Unspecified osteoarthritis, unspecified site; Z96.643 Presence of artificial hip joint, bilateral; M79.7 Fibromyalgia; G89.29 Other chronic pain; K21.9 Gastro-esophageal reflux disease without esophagitis; Z79.890 Hormone replacement therapy; Z79.899 Other long term (current) drug therapy
CPT/HCPCS: 72100; 72170; 73030; 99282

== ENCOUNTER → 2022-10-24 | Outpatient (CLI) | payer MEDICARE, SELFPAY ==
--- NOTE | 2022-10-24 13:20 | MRI_ITS ---
HISTORY: pain TECHNIQUE: Multiplanar and multisequence MR images of the lumbar spine were obtained before and after the intravenous administration of 13 mL Clariscan. 144 images. COMPARISON: XR 10/11/2022, MR 10/27/2020. FINDINGS: VERTEBRAE: Vertebral body heights maintained. Degenerative bone marrow endplate changes at L5-S1. ALIGNMENT: No anterior or posterior subluxation. Mild scoliosis. SPINAL CANAL: Normal morphology and position of the conus medullaris at L1-2. No gross epidural collection or enhancing intradural extramedullary mass. INTERVERTEBRAL DISCS: T12-L1: No significant posterior disc protrusion, central canal stenosis, or foraminal narrowing based on the sagittal images. L1-2: No significant posterior disc protrusion, central canal stenosis, or foraminal narrowing. L2-3, L3-4, L4-5: Minimal disc bulges and facet arthropathy resulting in minimal narrowing of thecal sac and mild bilateral foraminal narrowing, similar to prior. L5-S1: Moderate right paracentral disc protrusion increased in size with annular fissure and facet arthropathy resulting in right S1 nerve root abutment, minimal narrowing of the thecal sac, and moderate right foraminal narrowing with abutment of the right L5 nerve root. SOFT TISSUES: Mild posterior subcutaneous edema. No paraspinal fluid collection. Bilateral renal sinus cysts. MRI/Spine Lumbar W/WO Contrast IMPRESSION: Progression of right paracentral disc protrusion at L5-S1 resulting in right nerve root abutment/impingement and moderate right foraminal narrowing. Very mild degenerative disc disease at the other levels as above. Electronically Signed: Jacquie Berry MD at 14:40 EDT ,
[2022-10-24 13:56] LABS: CREATININE FINGERSTICK < 0.9 mg/dL (0.55-1.02); EGFR FINGERSTICK > 60.0000 mL/min (>60)
== END | disposition home or self-care (01) ==
PROVIDERS: PCP Family Medicine; Referring Provider Orthopaedic Surgery; Visit Provider Orthopaedic Surgery
DX: M51.26 Other intervertebral disc displacement, lumbar region (principal)
CPT/HCPCS: 72158; A9575

== ENCOUNTER → 2022-11-27 | Outpatient (CLI) | payer MEDICARE, SELFPAY ==
--- NOTE | 2022-11-27 06:51 | MRI_ITS ---
STUDY: MRI CERVICAL SPINE WITHOUT CONTRAST REASON FOR EXAM: Female, 77 years old. Neck pain. Rule out syrinx. TECHNIQUE: Standardized fat and water weighted pulse sequences were obtained in the sagittal and axial planes. COMPARISON: None FINDINGS: Normal foramen magnum and brainstem-cervical cord junction. Normal craniovertebral junction. Normal anterior atlantoaxial articulation. Normal odontoid process. Normal cervical lordosis. Normal vertebral bodies and posterior osseous elements. C2-3: Normal endplates. Normal disc height, signal and morphology. Normal central canal and intervertebral neural foramina. C3-4: Normal endplates. Normal disc height, signal and morphology. Normal central canal and intervertebral neural foramina. C4-5: Normal endplates. Normal disc height. Minimal anterolisthesis of C4 on C5. Normal central canal and intervertebral neural foramina. Moderately pronounced left degenerative facet arthropathy. C5-6: Normal endplates. Normal disc height. Minimal ventral extradural defect due to posterior bulging annulus. Normal central canal and intervertebral neural foramina. C6-7: Normal endplates. Normal disc height, signal and morphology. Normal central canal and intervertebral neural foramina. C7-T1: Normal endplates. Normal disc height, signal and morphology. Normal central canal and intervertebral neural foramina. T1-T2, T2-T3, T3-T4 and T4-T5: (Sagittal only). Normal endplates. Normal disc height, signal and morphology. Normal central canal and intervertebral neural foramina. Normal cervical cord. Normal included upper thoracic spinal cord. Normal included brainstem and cerebellum. Normal visualized soft tissue structures. MRI/Spine Cervical (Routine) IMPRESSION: 1. Minimal degenerative anterolisthesis of C4 on C5 and moderately pronounced left C4-C5 degenerative facet arthropathy. 2. Small C5-C6 posterior bulging annulus. 3. No MRI evidence of cervical extruded disc fragment, disc protrusion or spinal stenosis. 4. Normal cervical spinal cord and the included upper thoracic spinal cord. Electronically Signed: Ricki Mcdaniel MD at 15:26 EDT ,
--- NOTE | 2022-11-27 06:51 | MRI_ITS ---
EXAM: MR HEAD WITHOUT AND WITH INTRAVENOUS CONTRAST CLINICAL INDICATION: pain TECHNIQUE: Multiplanar and multisequence MR images of the brain were obtained without and with intravenous contrast. CONTRAST: 12 mL of IV Clariscan. COMPARISON: No relevant prior studies available. FINDINGS: BRAIN AND EXTRA-AXIAL SPACES: T2 FLAIR hyperintensity foci in the white matter of both cerebral hemispheres are chronic white matter ischemic changes. Following IV contrast administration, there are no abnormal enhancing lesions intra-axially and extra-axially. No intra- or extra-axial hemorrhage. No intracranial mass or mass effect. Posterior fossa structures are unremarkable. Ventricles are appropriate for age. No hydrocephalus. Basal cisterns are patent. No diffusion restriction to suspect acute or subacute ischemic infarct. SELLA: Unremarkable. Normal sella turcica, pituitary gland, infundibular stalk, optic chiasm and hypothalamus. AUDITORY SYSTEM: Unremarkable. The internal auditory canals are patent. BONES/JOINTS: Unremarkable. No discrete lytic or blastic abnormalities. SINUSES: Unremarkable as visualized. Clear. MASTOID AIR CELLS: Unremarkable as visualized. Clear. ORBITS: Unremarkable as visualized. Both globes, extraocular muscles, optic nerves and retrobulbar fat appear unremarkable. VASCULATURE: Unremarkable as visualized. Normal flow voids in the major intracranial circulation. MRI/Brain W/WO Contrast IMPRESSION: 1. No MRI evidence of acute or subacute ischemic infarct or acute intracranial abnormality. 2. Chronic white matter ischemic changes in both cerebral hemispheres. 3. No abnormal enhancing lesions intra-axially and extra-axially. Electronically Signed: Ricki Mcdaniel MD at 14:53 EDT ,
== END | disposition home or self-care (01) ==
PROVIDERS: PCP Nurse Practitioner Primary Care; Referring Provider Orthopaedic Surgery; Visit Provider Orthopaedic Surgery
DX: R51.9 Headache, unspecified (principal); G89.29 Other chronic pain; M50.20 Other cervical disc displacement, unspecified cervical region
CPT/HCPCS: 70553; 72141; A9575

== ENCOUNTER → 2022-12-08 | Outpatient (CLI) | payer MEDICARE, SELFPAY ==
[2022-12-08 15:55] LABS: Absolute Lymphocyte Count 1.88 X10^3/uL (0.83-4.51); Absolute Neutrophil Count 3.3 X10^3/uL (2.0-7.7); Basophil# 0.03 X10^3/uL; Basophil% 0.5 % (0-1); Eosinophil# 0.08 X10^3/uL; Eosinophils% 1.4 % (0-5); Hematocrit 40.7 % (37-47); Hemoglobin 13.2 g/dL (12.0-15.0); Lymphocyte # 1.88 X10^3/ul (0.83-4.51); Lymphocyte % 33.1 % (19-41); Mean Corp Hgb Conc 32.4 g/dL (32-36); Mean Corpuscular Hgb 30.6 pg (27.0-32.0); Mean Corpuscular Volume 94.4 fL (81-99); Mean Platelet Vol. 10.7 fl (6.2-12.0); Monocyte# 0.43 X10^3/uL; Monocyte% 7.6 % (0-10); NRBC Flagged by Analyzer 0 % (0-5); Neutrophil # 3.25 X10^3/uL (2.7-7.7); Neutrophil % 57.2 % (47-70); Platelet Count 217 K/mm3 (150-450); RBC Distribution Width CV 13.2 % (11.6-14.6); RBC Distribution Width SD 45.6 fl (35.1-43.9); Red Blood Count 4.31 M/mm3 (4.2-5.4); White Blood Count 5.7 K/mm3 (4.4-11.0)
[2022-12-08 16:26] LABS: Erythrocyte Sedimentation Rate 8 mm/hr (0-30)
[2022-12-08 19:06] LABS: ALB/GLOB Ratio 1.1 RATIO (0.9-2.4); AST(SGOT) 22 U/L (15-37); Alanine Aminotransfer ALT/SGPT 24 U/L (13-56); Albumin, Serum 3.7 g/dL (3.2-5.0); Alkaline Phosphatase 79 U/L (45-117); Amylase 95 U/L (25-115); Anion Gap 6 (5-15); BUN 26 mg/dL (7-18); CRP 5.28 mg/L (0.0-3.0); Calcium,Total 9.4 mg/dL (8.5-10.1); Chloride 108 mmol/L (98-107); EST Glomerular Filtration Rate 102 mL/min (>60); Est Glom Filt Rate - Afr Amer 124 mL/min (>60); Globulin 3.5 g/dL (2.2-4.2); Glucose 85 mg/dL (74-106); LDH 181 U/L (84-246); Lipase 29 U/L (13-75); Potassium 3.9 mmol/L (3.5-5.1); Prolactin 7.4 ng/mL; Protein, Total 7.2 g/dL (6.4-8.2); Sodium Level 142 mmol/L (136-145)
[2022-12-11 15:08] LABS: Endomysial Antibody IgA Negative (Negative); Immunoglobulin A 247 mg/dL (64-422); t-Transglutaminase IgA <2 U/mL (0-3)
[2022-12-14 02:07] LABS: Albumin 3.9 g/dL (2.9-4.4); Alpha-1-Globulins 0.2 g/dL (0.0-0.4); Alpha-2-Globulins 0.8 g/dL (0.4-1.0); Angiotensin Convert Enzyme 36 U/L (14-82); Cytoplasmic Ab (C-ANCA) <1:20 titer (Neg:<1:20); Gamma Globulin 0.8 g/dL (0.4-1.8); Gastrin, Serum 14 pg/mL (0-115); Immunoglobulin A 243 mg/dL (64-422); Immunoglobulin E 33 IU/mL (6-495); Immunoglobulin G 960 mg/dL (586-1602); Immunoglobulin M 61 mg/dL (26-217); PROEL- TOTAL PROTEIN 6.7 g/dL (6.0-8.5); Perinuclear Ab (P-ANCA) <1:20 titer (Neg:<1:20)
[2022-12-15 01:07] LABS: Anti-Centromere B Ab <0.2 AI (0.0-0.9); Anti-Chromatin <0.2 AI (0.0-0.9); Anti-Jo <0.2 AI (0.0-0.9); Anti-Scleroderma-70 AB <0.2 AI (0.0-0.9); Anti-dsDNA Ab 1 IU/mL (0-9); Beef <0.10 kU/L (Class 0); Chocolate <0.10 kU/L (Class 0); Clam <0.10 kU/L (Class 0); Codfish <0.10 kU/L (Class 0); Corn <0.10 kU/L (Class 0); Egg, White <0.10 kU/L (Class 0); Egg, Whole <0.10 kU/L (Class 0); Milk (Cow) 0.14 kU/L (Class 0/I); Peanut <0.10 kU/L (Class 0); Pork <0.10 kU/L (Class 0); RNP Ab <0.2 AI (0.0-0.9); SCALLOP <0.10 kU/L (Class 0); SESAME SEED <0.10 kU/L (Class 0); SJOGREN'S Anti-SS-A test < 0.2 AI (0.0-0.9); SJOGREN'S Anti-SS-B test < 0.2 AI (0.0-0.9); Shrimp <0.10 kU/L (Class 0); Smith Ab <0.2 AI (0.0-0.9); Soybean <0.10 kU/L (Class 0); Walnut, (Food) <0.10 kU/L (Class 0); Wheat <0.10 kU/L (Class 0)
== END | disposition home or self-care (01) ==
LOC: LAB 14:20
PROVIDERS: PCP Nurse Practitioner Primary Care; Referring Provider Internal Medicine Gastroenterology; Visit Provider Internal Medicine Gastroenterology
DX: K31.84 Gastroparesis (principal)
CPT/HCPCS: 36415; 80053; 82150; 82164; 82533; 82784; 82785; 82941; 83516; 83615; 83690; 84146; 84165; 85025; 85652; 86003; 86005; 86140; 86225; 86235; 86255; 86256; 86334

== ENCOUNTER → 2022-12-12 | Outpatient (CLI) | payer MEDICARE, SELFPAY ==
--- NOTE | 2022-12-13 09:18 | PFT ---
INTRODUCTION: The patient is a 77-year-old female that presents for pulmonary function studies secondary to a diagnosis of dyspnea. Respiratory therapy reported good patient effort. Bronchodilators were used during testing. INTERPRETATION: Forced expiration spirometry demonstrates no evidence of a large airways obstructive ventilatory defect. There was no significant response to aerosolized bronchodilators. Spirograms are of good quality and plateau normally. Body plethysmography was performed and revealed lung volumes to be within normal limits. Diffusing capacity by single breath CO was also within normal limits. IMPRESSION: Grossly normal pulmonary function studies.
[2022-12-16 03:07] LABS: Pancreatic Elastase, Fecal 187 (>200)
[2022-12-18 17:07] LABS: Calprotectin, Stool 44 ug/g (0-120); Fats, Neutral Normal (.); Fats, Total Normal (.)
== END | disposition home or self-care (01) ==
PROVIDERS: Internal Medicine Gastroenterology; PCP Nurse Practitioner Primary Care; Referring Provider Internal Medicine Critical Care Medicine; Visit Provider Internal Medicine Critical Care Medicine
DX: R06.00 Dyspnea, unspecified (principal); K31.84 Gastroparesis; K58.9 Irritable bowel syndrome, unspecified
CPT/HCPCS: 82653; 82705; 83630; 83993; 87177; 87209; 87329; 94060; 94726; 94729

== ENCOUNTER → 2023-01-01 | Outpatient (CLI) | payer MEDICARE, SELFPAY ==
--- NOTE | 2023-01-01 08:46 | NM_ITS ---
CLINICAL: 77-year-old female with history of clinical gastroparesis. SOLID PHASE 99m Tc SULFUR COLLOID GASTRIC EMPTYING STUDY COMPARISON: None available FINDINGS: The patient was administered 1.0 mCi of 99m Tc sulfur colloid mixed with egg and consumed per os. Image acquisitions in the anterior-posterior projections were obtained for 224 minutes following meal consumption. There is prompt visualization of the stomach. There is no gastroesophageal reflux identified. First order kinetics are maintained throughout the duration of the acquisitions. The T ? raw data emptying was calculated to be 96.14 minutes, (Normal 65-110 minutes). 98 % emptying and 2.0 % retention are defined at 4 hours post meal ingestion. NM/Gastric Emptying Study IMPRESSION: 1. NORMAL 99m Tc sulfur colloid solid phase gastric emptying imaging examination. A. There is normal and preserved solid phase gastric emptying compared to normal controls with maintained first order kinetics throughout all components of the examination. ( et al, Gastroenterology 77: 75, 1979 Marlena et al, Semin Nucl Med 12: 116, 1980 Valentin et al, [facility]M Procedure Guidelines Adult Solid Meal Gastric Emptying Study 3.0 [email or web address]). B. Greater than 90% emptying of the initial gastric contents at 4 hours post dose is consistent with normal solid phase gastric emptying which correlates with the results of the T ? emptying calculation. (Charleen et al, J Nucl Med 48: 568, 2007). Electronically Signed: John López, at 19:48 EDT ,
== END | disposition home or self-care (01) ==
PROVIDERS: PCP Nurse Practitioner Primary Care; Referring Provider Internal Medicine Gastroenterology; Visit Provider Internal Medicine Gastroenterology
DX: K31.84 Gastroparesis (principal)
CPT/HCPCS: 78264; A9541

== ENCOUNTER → 2023-01-06 | Outpatient (CLI) | payer MEDICARE, SELFPAY ==
[2023-02-01 12:09] LABS: 5-HIAA, 24UR 3.3 mg/24 hr (0.0-14.9)
== END | disposition home or self-care (01) ==
LOC: LAB 10:26
PROVIDERS: PCP Nurse Practitioner Primary Care; Referring Provider Internal Medicine Gastroenterology; Visit Provider Internal Medicine Gastroenterology
DX: K31.84 Gastroparesis (principal)
CPT/HCPCS: 36415; 81050; 82533; 83497

== ENCOUNTER → 2023-02-12 | Outpatient (CLI) | payer MEDICARE, SELFPAY ==
[2023-02-12 10:36] LABS: Absolute Lymphocyte Count 1.59 X10^3/uL (0.83-4.51); Absolute Neutrophil Count 5.4 X10^3/uL (2.0-7.7); Basophil# 0.04 X10^3/uL; Basophil% 0.5 % (0-1); Eosinophil# 0.13 X10^3/uL; Eosinophils% 1.7 % (0-5); Hemoglobin 14.1 g/dL (12.0-15.0); Lymphocyte # 1.59 X10^3/ul (0.83-4.51); Lymphocyte % 20.5 % (19-41); Mean Corpuscular Hgb 31.1 pg (27.0-32.0); Mean Corpuscular Volume 97.1 fL (81-99); Mean Platelet Vol. 10.3 fl (6.2-12.0); Monocyte# 0.62 X10^3/uL; NRBC Flagged by Analyzer 0 % (0-5); Neutrophil # 5.35 X10^3/uL (2.7-7.7); Neutrophil % 68.9 % (47-70); Platelet Count 258 K/mm3 (150-450); RBC Distribution Width CV 13.5 % (11.6-14.6); RBC Distribution Width SD 48.2 fl (35.1-43.9); Red Blood Count 4.53 M/mm3 (4.2-5.4); White Blood Count 7.8 K/mm3 (4.4-11.0)
[2023-02-12 11:10] LABS: Anion Gap 2 (5-15); BUN 32 mg/dL (7-18); BUN/Creat Ratio 41.6 RATIO (10-20); Calcium,Total 9.1 mg/dL (8.5-10.1); Chloride 112 mmol/L (98-107); Creatinine, Serum 0.77 mg/dL (0.55-1.02); EST Glomerular Filtration Rate 78 mL/min (>60); Est Glom Filt Rate - Afr Amer 94 mL/min (>60); Free T3 1.9 pg/mL (2.18-3.98); Glucose 97 mg/dL (74-106); Potassium 4.4 mmol/L (3.5-5.1); Sodium Level 144 mmol/L (136-145); T4 Free Direct 1.33 ng/dL (0.76-1.46)
[2023-02-12 12:43] LABS: BNP,B-Type NATRIURETIC PEPTIDE 104.8 pg/mL (0-100)
== END | disposition home or self-care (01) ==
LOC: LAB 09:36
PROVIDERS: PCP Nurse Practitioner Primary Care; Referring Provider Nurse Practitioner Gerontology; Visit Provider Nurse Practitioner Gerontology
DX: R53.83 Other fatigue (principal); R06.00 Dyspnea, unspecified; E55.9 Vitamin D deficiency, unspecified
CPT/HCPCS: 36415; 80048; 82306; 83880; 84439; 84443; 84481; 85025

== ENCOUNTER → 2023-02-27 | Outpatient (CLI) | payer MEDICARE, SELFPAY ==
--- NOTE | 2023-02-27 10:06 | CDU_ITS ---
Reason For Study: dizziness and giddiness Rt. Velocities/BP Lt. Velocities/BP Prox CCA 61.7/10.7 cm/sec. Prox CCA 67.4/14.6 cm/sec. Mid CCA 50.4/7.8 cm/sec. Mid CCA 74.0/19.0 cm/sec. Dist CCA 50.4/9.7 cm/sec. Dist CCA 65.2/17.9 cm/sec. Prox ICA 33.3/9.7 cm/sec. Prox ICA 41.0/9.1 cm/sec. Mid ICA 55.1/16.3 cm/sec. Mid ICA 50.9/19.0 cm/sec. Dist ICA 98.1/26.7 cm/sec. Dist ICA 75.5/23.2 cm/sec. Rt. ICA/CCA = 1.9. Lt. ICA/CCA = 1.0. Prox ECA 48.5/6.9 cm/sec. Prox ECA 54.2/6.9 cm/sec. Rt. Vert. 53.1/12.4 cm/sec. Lt. Vert. 63.0/18.8 cm/sec. Right Extracranial There is intimal thickening but no significant atherosclerotic plaque noted in the right common carotid artery. There is intimal thickening but no significant atherosclerotic plaque noted in the right internal carotid artery. There is intimal thickening but no significant atherosclerotic plaque noted in the right external carotid artery. Antegrade flow is noted in the right vertebral artery. Left Extracranial There is intimal thickening but no significant atherosclerotic plaque noted in the left common carotid artery. There is intimal thickening but no significant atherosclerotic plaque noted in the left internal carotid artery. The left internal carotid artery is very tortuous. There is intimal thickening but no significant atherosclerotic plaque noted in the left external carotid artery. Antegrade flow is noted in the left vertebral artery. Procedure Carotid Duplex 10046. This is a Carotid Duplex examination using B-mode, color flow and specral Doppler. The exam was diagnostic. Exam performed in department. VL/Carotid Duplex Ultrasound Interpretation Summary Normal right extracranial internal carotid. Normal left extracranial internal carotid. Patent and antegrade vertebrals bilaterally. Ordering Physician: Nicole Clements Performed By: Link Tovar RVT
== END | disposition home or self-care (01) ==
LOC: CVS 10:02
PROVIDERS: PCP Nurse Practitioner Primary Care; Referring Provider Nurse Practitioner Gerontology; Visit Provider Nurse Practitioner Gerontology
DX: R42 Dizziness and giddiness (principal)
CPT/HCPCS: 93880

== ENCOUNTER 2023-05-22 15:55 | Emergency (ER) | payer MEDICARE, SELFPAY ==
[2023-05-22 15:56] VITALS: BP 133/65; PULSE 84; RESP 14; TEMP 37.9; O2SAT 100; BMI 25.7
--- NOTE | 2023-05-22 16:11 | EX.ED.DYSGE1 ---
HPI History of Present Illness Chief Complaint: Fever Informant: patient Onset/Context/Timing Onset: Days (4) Context: Gradual Onset Timing: Continuous Quality: Sharp Location: Chest Worsened by: Coughing Relieved by: Nothing Narrative Narrative: Patient presents with a fever that has been constant for the past 4 days. Patient states it is gradually gotten worse. Patient states her temperatures been up to 102.6 at home. Patient states she has been taking ibuprofen for this. Patient admits to some pain in her chest. Patient describes it as sharp. Patient states it is worse with coughing. Patient is nothing makes it better. Patient admits to some rhinorrhea and sore throat. Patient admits to some shortness of breath. Patient also admits to some generalized myalgias. [facility] Medical History (Updated 05/22/23 @ 18:[address] Riaz Hodgson, DO) Arthritis Asthma Back pain Cardiology follow-up encounter Chest pain Chronic cough Chronic neck and back pain Diastolic CHF, chronic Difficulty balancing when standing Dizziness Dyspnea on exertion Fatigue Fibromyalgia Gastroparesis Gastroparesis GERD (gastroesophageal reflux disease) Hemorrhoids History of irregular heartbeat History of pain when walking History of stress test (~10/08/17) Hx of echocardiogram (~10/04/20) Hypothyroidism Injury of back Migraine headache Palpitations Peripheral neuropathy Scarring of lung Severe headache Shoulder pain Tarsal tunnel syndrome of right side Thyroid disease Wears glasses Wears hearing aid Home Medications multivitamin 1 tab PO DAILY 10/21/19 [History Last Taken Unknown] levothyroxine 100 mcg tablet 100 mcg PO MOTUWETHFRSA 11/22/20 [History Last Taken 12/30/20 100 MCG] furosemide 20 mg tablet (Lasix) 20 mg PO DAILY PRN 09/27/22 [History Last Taken Unknown] cholecalciferol (vitamin D3) 25 mcg (1,000 unit) capsule 25 mcg PO DAILY 10/11/22 [History Last Taken Unknown] mecobalamin (vitamin B12) 1,000 mcg chewable tablet 1,000 mcg PO DAILY 10/11/22 [History Last Taken Unknown] Lactobacillus acidophilus 1 billion cell tablet 1,000 mmu cells PO DAILY #30 tabs 05/01/23 [Rx Last Taken Unknown] doxycycline hyclate 100 mg capsule 100 mg PO BID #60 caps 05/07/23 [Rx Last Taken Unknown] Allergy/AdvReac Type Severity Reaction Status Date / Time Environmental Allergies: Allergy Intermediate Blisters, Verified 05/22/23 15:56 Uncoded itching latex Allergy Intermediate rash Verified 05/22/23 15:56 nickel Allergy Intermediate sores, Verified 05/22/23 15:56 bleeding, infection sodium lauryl sulfate Allergy Intermediate canker Verified 05/22/23 15:56 sores acetaminophen Allergy Mild Hives Verified 05/22/23 15:56 grass pollen Allergy Mild Itching Verified 05/22/23 15:56 poison leodan extract Allergy RASH, Verified 05/22/23 15:56 ITCHING Family History Mother Myocardial infarction, Onset Age: 57 Father Myocardial infarction, Onset Age: 79 Brother Myocardial infarction Sister Myocardial infarction Breast cancer COPD (chronic obstructive pulmonary disease) Surgical History History of back surgery History of bilateral total hip arthroplasty History of dilation and curettage History of eye surgery History of hip replacement History of Oumar fundoplication Social History (Updated 05/22/23 @ 16:47 by Lorena Santacruz) household members: spouse housing: house Smoking Status: Never smoker alcohol intake: never substance use type: does not use caffeine: Yes Type: coffee Number of servings: 1 ROS ROS ED Constitutional Constitutional ED: Reports chills and fever(s) Eyes Eyes: Reports blurry vision; Denies change in vision ENT ENT ED: Reports rhinorrhea and sore throat Cardiovascular Cardiovascular: Reports chest pain; Denies palpitations Respiratory/Chest Respiratory/Chest: Reports cough and dyspnea Gastrointestinal Gastrointestinal: Denies nausea or vomiting Genitourinary Genitourinary ED: Denies dysuria or hematuria Musculoskeletal Musculoskeletal: Reports back pain, myalgias and neck pain Integumentary Denies abscess or rash Neurologic Neurologic: Reports headache(s); Denies weakness Allergic/Immunologic Allergic/Immunologic ED: Denies mouth swelling or urticaria EXAM Physical Exam Const Vital Signs: 05/22/23 15:56 05/22/23 16:50 05/22/23 16:50 Temperature 100.3 F H Temperature Source Oral Pulse Rate 84 Respiratory Rate 14 Respiratory Effort Normal Respiratory Pattern Normal Blood Pressure 133/65 H Blood Pressure Mean 87 Pulse Ox 100 Oxygen Delivery Method Room Air Room Air 05/22/23 16:58 Temperature 101 F H Temperature Source Oral Pulse Rate 88 Respiratory Rate 22 H Respiratory Effort Respiratory Pattern Blood Pressure 120/64 Blood Pressure Mean 82 Pulse Ox Oxygen Delivery Method Positive well nourished and well developed General Appearance ED: well developed and NAD HEENT Reports moist mucous membranes Neck supple and no JVD Chest Wall Chest Narrative: There is tenderness over the anterior chest. There is no bony crepitance or step-off. Resp normal respiratory effort and clear to auscultation bilaterally Cardio regular rate and regular rhythm GI non-tender and non-distended Palpation: soft Neuro oriented x3, CN's II-XII intact bilaterally and no sensory deficits noted Sensorium / Orientation: alert Motor Exam: strength 5/5 throughout Psych mental status grossly normal MDM MDM MDM Narrative Medical decision making narrative: Differential diagnosis includes pneumonia, bronchitis, viral upper respiratory infection, COVID-19 infection, influenza infection, and urinary tract infection. CBC will be obtained to assess for leukocytosis and anemia. Basic metabolic profile will be obtained to assess for electrolyte abnormality and renal function. Urinalysis will be obtained to assess for urinary tract infection. COVID-19 rapid antigen will be obtained to assess for COVID-19 infection. Influenza A and influenza B antigens will be obtained to assess for influenza infection. Lactate will be obtained to assess for sepsis. Blood cultures will be obtained to assess for sepsis. EKG will be obtained to assess for cardiac dysrhythmia and cardiac ischemia. Lab Data Attestation: I reviewed the patient's lab results. Lab results narrative: CBC was reviewed and was within normal limits. Basic metabolic profile was reviewed and was essentially within normal limits. Lactate was normal at 1.5. COVID-19 rapid antigen was reviewed and was positive. Influenza A and influenza B antigens were reviewed and were negative. Urinalysis was reviewed. There is no evidence of urinary tract infection or hematuria. Labs: Laboratory Results - last 24 hr 05/22/23 05/22/23 16:43 18:09 WBC 6.0 RBC 3.97 L Hgb 12.1 Hct 37.3 MCV 94.0 MCH 30.5 MCHC 32.4 RDW Std Deviation 45.0 H RDW Coeff of Edy 13.1 Plt Count 189 MPV 10.7 Immature Gran % (Auto) 0.200 Neut % (Auto) 76.5 H Lymph % (Auto) 13.7 L [place] % (Auto) 9.4 Eos % (Auto) 0.0 Baso % (Auto) 0.2 Absolute Neuts (auto) 4.6 Absolute Lymphs (auto) 0.83 Nucleated RBC % 0 Sodium 143 Potassium 3.5 Chloride 112 H Carbon Dioxide 27.0 Anion Gap 4 L BUN 15 Creatinine 0.76 Estim Creat Clear Calc 37.85 Est GFR (MDRD) Af Amer 95 Est GFR (MDRD) Non-Af 79 BUN/Creatinine Ratio 19.8 Glucose 133 H Lactic Acid 1.5 Calcium 8.4 L Urine Color Yellow Urine Clarity Clear Urine pH 6.0 Ur Specific [place] 1.025 Urine Protein 30 H Urine Glucose (UA) Normal Urine Ketones Negative Urine Occult Blood 10 H Urine Nitrite Negative Urine Bilirubin Negative Urine Urobilinogen Normal Ur Leukocyte Esterase 25 H Urine RBC 0 SEEN Urine WBC 0-5 SEEN Ur Squamous Epith Cells 0-5 SEEN Urine Bacteria 0 SEEN Urine Mucus 0 SEEN Radiography Diagnostic Testing: Clinical Impression(s) from Imaging Studies Chest X-Ray 05/22/23 16:55 IMPRESSION: No radiographic evidence of acute cardiopulmonary disease. Electronically Signed: Mariusz Garcia MD at 17:14 EST , PA and lateral chest x-ray was obtained. There are 2 views. On my independent interpretation, lung stone are clear. There is normal cardiac silhouette. Bony thorax is normal. There is no acute process noted. Radiologist also interpreted the x-ray and agrees. EKG Initial EKG: Attestation: I personally reviewed and interpreted this EKG as follows: Interpretation: Sinus Rhythm (79) and Non-Specific ST Changes Comments: EKG was obtained. On my independent interpretation, it showed a normal sinus rhythm with a rate of 79. NC interval, QRS interval, and QTc intervals were all normal. [place] was normal. There are no acute ST or T wave changes. Prior EKG tracings: available for review Prior: Unchanged (06/05/2022) Treatment and Re-Evaluation :: Patient was given IV fluids. Patient was given a dose of ibuprofen. Patient is feeling better on reevaluation. Patient was advised of her findings. Patient was instructed to drink plenty of fluids. Patient was instructed to take Tylenol or ibuprofen as needed for any pain or fevers. Patient was instructed to follow-up with her primary care physician in 5 to 7 days. Patient understood and was agreeable with the plan. All questions were answered. Discharge Plan Triage Chief Complaint: Fever Other Complaint: Cough ED Provider: Riaz Hodgson Dx/Rx/DC Orders Clinical Impression: COVID-19, Chest pain Instructions: Coronavirus Disease 2019 (COVID-19): Caring for Yourself or Others Prescriptions: No Action multivitamin Tablet 1 tab PO DAILY mecobalamin (vitamin B12) 1,000 mcg tablet,chewable 1,000 mcg PO DAILY cholecalciferol (vitamin D3) 25 mcg (1,000 unit) capsule 25 mcg PO DAILY furosemide [Lasix] 20 mg tablet 20 mg PO DAILY PRN Lactobacillus acidophilus 1 billion cell tablet 1,000 mmu cells PO DAILY Qty: 30 3RF levothyroxine 100 mcg tablet 100 mcg PO MOTUWETHFRSA doxycycline hyclate 100 mg capsule 100 mg PO BID Qty: 60 0RF Primary Care Provider: Tati Thompson NP Referrals: Tati Thompson NP, COMPLIANCE CLERK-C [Primary Care Provider] - 5-7 Days Disposition Disposition: Home, Self Care
[2023-05-22] MEDS: Ibuprofen 600 MG Tablet PO (16:43)
[2023-05-22] MEDS: 0.9% Normal Saline (1000mL) 1,000 ML 1000 ML IV (16:43)
[2023-05-22 16:50] VITALS: O2SAT 96
--- NOTE | 2023-05-22 16:55 | RAD_ITS ---
EXAM: XR CHEST, 2 VIEWS CLINICAL INDICATION: Fever TECHNIQUE: Frontal and lateral views of the chest. COMPARISON: 08/04/2019 FINDINGS: LUNGS AND PLEURAL SPACES: Unremarkable. No consolidation or edema. No pneumothorax. No effusion. HEART: Unremarkable. Cardiac silhouette not enlarged. MEDIASTINUM: Central airways and mediastinal contour are unremarkable. BONES/JOINTS: Unremarkable. No acute fracture. SOFT TISSUES: Unremarkable. RAD/Chest PA and Lateral IMPRESSION: No radiographic evidence of acute cardiopulmonary disease. Electronically Signed: Mariusz Garcia MD at 17:14 EST ,
[2023-05-22 16:57] LABS: Absolute Lymphocyte Count 0.83 X10^3/uL (0.83-4.51); Absolute Neutrophil Count 4.6 X10^3/uL (2.0-7.7); Basophil# 0.01 X10^3/uL; Basophil% 0.2 % (0-1); Hematocrit 37.3 % (37-47); Hemoglobin 12.1 g/dL (12.0-15.0); Lymphocyte # 0.83 X10^3/ul (0.83-4.51); Lymphocyte % 13.7 % (19-41); Mean Corp Hgb Conc 32.4 g/dL (32-36); Mean Corpuscular Hgb 30.5 pg (27.0-32.0); Mean Platelet Vol. 10.7 fl (6.2-12.0); Monocyte# 0.57 X10^3/uL; Monocyte% 9.4 % (0-10); NRBC Flagged by Analyzer 0 % (0-5); Neutrophil # 4.62 X10^3/uL (2.7-7.7); Neutrophil % 76.5 % (47-70); Platelet Count 189 K/mm3 (150-450); RBC Distribution Width CV 13.1 % (11.6-14.6); Red Blood Count 3.97 M/mm3 (4.2-5.4)
[2023-05-22 16:58] VITALS: BP 120/64; PULSE 88; RESP 22; TEMP 38.3
[2023-05-22 17:08] LABS: Anion Gap 4 (5-15); BUN 15 mg/dL (7-18); BUN/Creat Ratio 19.8 RATIO (10-20); Calcium,Total 8.4 mg/dL (8.5-10.1); Chloride 112 mmol/L (98-107); Creatinine, Serum 0.76 mg/dL (0.55-1.02); EST Glomerular Filtration Rate 79 mL/min (>60); Est Glom Filt Rate - Afr Amer 95 mL/min (>60); Estimated Creatinine Clearance 37.85 ml/min; Glucose 133 mg/dL (74-106); Potassium 3.5 mmol/L (3.5-5.1); Sodium Level 143 mmol/L (136-145)
[2023-05-22 17:22] LABS: Lactic Acid 1.5 mmol/L (0.4-1.9)
[2023-05-22 18:19] LABS: Bacteria 0 SEEN /hpf (None Seen); Mucous, Urine 0 SEEN /hpf (<or=2+)
[2023-05-22 18:22] LABS: Color, Urine Yellow (Yellow); Glucose, Dipstick Normal (Normal); Ketone-Dipstick Negative (Negative); Leukocyte Esterase-Dipstick 25 /ul (Negative); Nitrite-Dipstick Negative (Negative); Occult Blood-Urine 10 /ul (Negative); Protein-Dipstick 30 mg/dl (Negative); Specific Gravity, Urine 1.025 (1.002-1.030); Urine Bilirubin Dipstick Negative (Negative); Urine Clarity Clear (Clear); Urine Urobilinogen Normal (Normal)
[2023-05-22 18:31] LABS: Red Blood Cells-Urine 0 SEEN /hpf (0-5); Squamous Epithelial Cells - UA 0-5 SEEN /hpf (5-10); White Blood Cells 0-5 SEEN /hpf (0-5)
[2023-05-22 18:46] VITALS: RESP 18; O2SAT 96
== END 2023-05-22 18:47 | disposition home or self-care (01) ==
PROVIDERS: Emergency Provider Emergency Medicine; PCP Nurse Practitioner Primary Care; Referring Provider Emergency Medicine; Visit Provider Emergency Medicine
DX: U07.1 COVID-19 (principal); I50.32 Chronic diastolic (congestive) heart failure; R07.9 Chest pain, unspecified; J45.909 Unspecified asthma, uncomplicated; E03.9 Hypothyroidism, unspecified; K21.9 Gastro-esophageal reflux disease without esophagitis; Z79.890 Hormone replacement therapy; Z79.899 Other long term (current) drug therapy
CPT/HCPCS: 71046; 80048; 81001; 83605; 85025; 87040; 87428; 93005; 96360; 99284; A4216

== ENCOUNTER 2023-08-20 11:01 | Outpatient (CLI) | payer MEDICARE, SELFPAY ==
--- OUTSIDE RECORDS SUMMARY | 2023-08-20 11:26 | XMS RPT_ITS | CCD ---
Author Name Unknown Address [address] [place] [address] Organization [facility] Care Team Providers Care Blanket Inspector Name Role Phone Wyatt Duong Unavailable Wyatt Duong Unavailable Unavailable Unavailable Unavailable Wyatt Duong Primary Care Provider [phone] Wyatt Duong Unavailable Reji Miller Unavailable TAEGE, MEME Admitting Unavailable TAEGE, MEME Attending Unavailable TAEGE, MEME Referring Unavailable TAEGE, MEME Primary Care Unavailable TAEGE, MEME Admitting Unavailable TAEGE, MEME Attending Unavailable TAEGE, MEME Referring Unavailable TAEGE, MEME Primary Care Unavailable Wyatt Duong Unavailable Reji Miller Unavailable [phone] No, Physician Primary Care Provider Unavailabl e NO, PHYSICIAN Primary Care Unavailable REJI MILLER Attending Unavailabl e REJI MILLER Referring Unavailabl e NO, PHYSICIAN Primary Care Unavailable REJI MILLER Admitting Unavailabl e REJI MILLER Attending Unavailabl e NO, PHYSICIAN Primary Care Unavailable REJI MILLER Attending Unavailabl e NO, PHYSICIAN Primary Care Unavailable Wyatt Duong Unavailable Reji Miller Unavailable [phone] No, Physician Primary Care Provider Unavailabl e Zohaib CHOWDHURY Attending Unavailable KATH CLINE Primary Care Unavailable SABLE, J JHOANA Admitting Unavailable SABLE, J JHOANA Admitting Unavailable AA NO PCP, NO PCP Primary Care Unavailable SABPEGGY, Zohaib JHOANA Attending Unavailable KATH CLINE Primary Care Unavailable SABLE, J JHOANA Admitting Unavailable SABLE, Zohaib JHOANA Attending Unavailable SABLE, J JHOANA Admitting Unavailable AA NO PCP, NO PCP Primary Care Unavailable SABLE, Zohaib JHOANA Attending Unavailable SABLE, J JHOANA Admitting Unavailable AA NO PCP, NO PCP Primary Care Unavailable SABPEGGY, Zohaib QUIJANOJHOANA Attending Unavailable Enmanuel Acosta Unavailable Josh Rebolledo MD Primary Care Provider Enmanuel Acosta Unavailable Enmanuel Acosta Unavailable Josh Rebolledo MD Primary Care Provider Unavailable Primary Care Provider Unavailkaren e AYAH THOMPSON Attending Unavailable JOSH REBOLLEDO Primary Care Unavailab JOSH Amato Primary Care Unavailab le PODLOGAYAH RENTERIA Attending Unavailable JOSH REBOLLEDO Primary Care Unavailab JOSH Amato Referring Unavailab JOSH Amato Attending Unavailab JOSH Amato Primary Care Unavailab le AYAH THOMPSON Referring Unavailable JOSH REBOLLEDO Primary Care Unavailab le Allergies Allergy Classification Reported Allergen(s) Allergy Type Date of Onset Reaction(s) Facility (13 sources) amoxicillin / clavulanate Propensity to adverse reactions to drug 5 GI Intolerance [facility] Work Phone: (13 sources) aspirin Propensity to adverse reactions to drug 7 GI Intolerance [facility] Work Phone: (13 sources) bacitracin Propensity to adverse reactions to drug 7 [facility] Work Phone: (13 sources) doxycycline Propensity to adverse reactions to drug 7 Other (See Comments) [facility] Work Phone: (13 sources) gabapentin Propensity to adverse reactions to drug 7 Other (See Comments) [facility] Work Phone: (13 sources) HYDROmorphone Propensity to adverse reactions to drug 7 Itching [facility] Work Phone: (15 sources) Latex; Translations: [LATEX] Propensity to adverse reactions to drug 7 Rash [facility] Work Phone: (20 sources) nickel; Translations: [NICKEL] Propensity to adverse reactions to drug 6 Itching, Other (See Comments), Other: See Comments [facility] Work Phone: (13 sources) omeprazole Propensity to adverse reactions to drug 7 Rash [facility] Work Phone: (13 sources) oxyCODONE Propensity to adverse reactions to drug 7 GI Intolerance [facility] Work Phone: (13 sources) pantoprazole Propensity to adverse reactions to drug 7 Rash [facility] Work Phone: (13 sources) peppermint preparation Propensity to adverse reactions to drug 5 Swelling [facility] Work Phone: (13 sources) pregabalin Propensity to adverse reactions to drug 7 Other (See Comments) [facility] Work Phone: (13 sources) RABEprazole Propensity to adverse reactions to drug 7 [facility] Work Phone: (13 sources) raNITIdine Propensity to adverse reactions to drug 7 Rash [facility] Work Phone: (13 sources) zoledronic acid Propensity to adverse reactions to drug 0 GI Intolerance [facility] Work Phone: (6 sources) cephalexin Propensity to adverse reactions to drug [facility] (6 sources) Other; Translations: [Unknown] Propensity to adverse reactions 9 [facility] (11 sources) Acetaminophen; Translations: [ACETAMINOPHEN] Drug Allergy 0 Rash, Itching [facility] Work Phone: (11 sources) Black Dye; Translations: [BLACK DYE] Propensity to adverse reactions to drug Unknown [facility] Work Phone: Medications Current Medications Medication Drug Class(es) Dates Sig (Normalized) Sig (Original) ibuprofen 200 mg oral tablet (13 sources) Nonsteroidal Anti-inflammatory Drug take 2 tablets by mouth every four hours as needed ibuprofen (ADVIL,MOTRIN) 200 MG tablet Take 2 tablets by mouth every 4 (four) hours as needed for pain. 0 Active meloxicam 15 mg oral tablet (3 sources) Nonsteroidal Anti-inflammatory Drug Start: 02-08-2023 End: 02-22-2023 take 1 tablet by mouth once daily at mealtime meloxicam (MOBIC) 15 mg tablet Indications: Bilateral hip pain , Fall in home, initial encounter , Acute midline low back pain without sciatica Take 1 tablet by mouth once daily for 14 days. With food. 14 tablet 0 02/08/2023 02/22/2023 Active Completed/Discontinued Medications Medication Drug Class(es) Dates Sig (Normalized) Sig (Original) 20 ml aminophylline 25 mg/ml injection (1 source) Start: 10-08-2017 End: 10-09-2017 aminophylline injection 100 mg amitriptyline hydrochloride 10 mg oral tablet (10 sources) Tricyclic Antidepressant Start: 06-06-2021 take 1 tablet by mouth once daily at bedtime as needed amitriptyline (ELAVIL) 10 mg tablet Take 1 tablet by mouth daily at bedtime. as needed 30 tablet 0 06/06/2021 Active Problems Active Problems Problem Classification Problem Date Documented Date Episodic/Chronic Cardiac dysrhythmias (13 sources) Premature atrial contraction; Translations: [PAC (premature atrial contraction)] Onset: 09-25-2017 10-29-2017 Chronic Cardiac dysrhythmias (1 source) Palpitations; Translations: [Palpitations] Episodic Esophageal disorders (11 sources) Gastroesophageal reflux disease; Translations: [Gastro-esophageal reflux disease without esophagitis] Onset: 09-23-2013 09-23-2013 Chronic Headache; including migraine (1 source) Headache; including migraine; Translations: [HEADACHE UNSPECIFIED] Onset: 04-19-2021 Mycoses (1 source) Candidiasis of mouth; Translations: [Candidal stomatitis] 02-08-2023 Episodic Nonspecific chest pain (1 source) Other chest pain; Translations: [Chest wall pain] Onset: 05-30-2023 Episodic Osteoarthritis (20 sources) Osteoarthritis of hip; Translations: [Degenerative joint disease (DJD) of hip] Onset: 07-27-2015 10-09-2016 Chronic Osteoarthritis (1 source) Osteoarthritis of right hip joint; Translations: [Primary osteoarthritis of right hip] Onset: 10-09-2016 10-09-2016 Other aftercare (1 source) 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; Translations: [OTH AUTO SPECIALTY SERVICES MANAGER CURRENT DRUG THERAPY] Onset: 06-29-2021 Episodic Other aftercare (1 source) superintendent container terminal (current) use of non-steroidal anti-inflammatories (NSAID); Translations: [PRISON USE NSAID] Onset: 04-19-2021 Episodic Other circulatory disease (2 sources) Orthostatic hypotension; Translations: [Orthostatic hypotension] Episodic Other connective tissue disease (1 source) Myalgia, unspecified site; Translations: [MYALGIA UNSPECIFIED SITE] Onset: 06-29-2021 Episodic Other nervous system disorders (1 source) Tarsal tunnel syndrome, right lower limb; Translations: [TARSAL TUNNEL SYND RT LOWER LIMB] Onset: 06-29-2021 Chronic Other non-traumatic joint disorders (1 source) Pain in left shoulder; Translations: [PAIN IN LEFT SHOULDER] Onset: 06-29-2021 Episodic Other non-traumatic joint disorders (1 source) Bilateral chronic pain following total hip arthroplasty; Translations: [Pain in unspecified hip] Episodic Other non-traumatic joint disorders (1 source) Hip pain; Translations: [Pain in right hip] 02-08-2023 Episodic Other skin disorders (1 source) Mass of subcutaneous tissue; Translations: [Localized swelling, mass and lump, unspecified] Episodic Spondylosis; intervertebral disc disorders; other back problems (1 source) Spondylosis without myelopathy or radiculopathy, cervical region; Translations: [SPONDYLS W/O MYELO-/RADICULOP CERV] Onset: 06-29-2021 Chronic Spondylosis; intervertebral disc disorders; other back problems (4 sources) Occipital neuralgia; Translations: [Cervicalgia] Onset: 05-20-2021 02-08-2023 Episodic Thyroid disorders (15 sources) Hypothyroidism; Translations: [Acquired hypothyroidism] Onset: 04-11-2015 10-29-2017 Chronic Unclassified (3 sources) Myalgia, unspecified site; Translations: [MYALGIA UNSPECIFIED SITE] Onset: 10-09-2018 Unclassified (2 sources) MYOFASCIAL PAIN Onset: 09-26-2018 Unclassified (1 source) LOW BACK PAIN, UNSPECIFIED; Translations: [LOW BACK PAIN, UNSPECIFIED] Onset: 06-29-2021 Past or Other Problems Problem Classification Problem Date Documented Date Episodic/Chronic Congestive heart failure; nonhypertensive (6 sources) Diastolic dysfunction; Translations: [Diastolic dysfunction] Onset: 8 10-29-2017 Episodic E Codes: Fall (2 sources) Fall in home; Translations: [Unspecified fall, initial encounter] Onset: 3 02-08-2023 Episodic E Codes: Place of occurrence (1 source) Unspecified place in unspecified non-institutional (private) residence as the place of occurrence of the external cause; Translations: [Fall in home, initial encounter] Onset: 3 Episodic Fever of unknown origin (13 sources) Fever; Translations: [Fever] Onset: 5 Resolved: 7 10-09-2016 Episodic Other circulatory disease (15 sources) Low blood pressure; Translations: [Diastolic dysfunction] Onset: 7 10-09-2016 Episodic Other lower respiratory disease (1 source) Dyspnea; Translations: [SOB (shortness of breath)] Episodic Other non-traumatic joint disorders (1 source) Pain in right hip; Translations: [Bilateral hip pain] Onset: 3 Episodic Other non-traumatic joint disorders (1 source) Pain in left hip; Translations: [Bilateral hip pain] Onset: 3 Episodic Other screening for suspected conditions (not mental disorders or infectious disease) (6 sources) Abnormal electrocardiogram [ECG] [EKG]; Translations: [Ambulatory ECG abnormal] Onset: 9 10-16-2018 Episodic Other skin disorders (1 source) Localized swelling, mass and lump, unspecified; Translations: [Subcutaneous mass] Onset: 3 Episodic Pneumonia (20 sources) Pneumonia; Translations: [Left lower zone pneumonia] Onset: 5 Resolved: 7 10-09-2016 Episodic Results Test Name Value Interpretation Reference Range Facil ity Vital Signs Date Time Vital Sign Value Performing Clinician Chavo patricio 02-08-2023 16:19-0400 Body weight 63.32 kg Josh Rebolledo MD Work Phone: [facility] 02-08-2023 16:19-0400 Diastolic blood pressure 62 mm[Hg] Josh Rebolledo MD Work Phone: [facility] 02-08-2023 16:19-0400 Heart rate 61 /min Josh Rebolledo MD Work Phone: [facility] 02-08-2023 16:19-0400 Respiratory rate 16 /min Josh Rebolledo MD Work Phone: [facility] 02-08-2023 16:19-0400 SaO2% (BldA) [Mass fraction] 98 % Josh Rebolledo MD Work Phone: [facility] 02-08-2023 16:19-0400 Systolic blood pressure 122 mm[Hg] Josh Rebolledo MD Work Phone: [facility] 09-26-2022 14:07-0400 Body weight 63.23 kg Ayah Podlogar HEAD OF ETHICS AND COMPLIANCE.WASH TEST CHECKER Work Phone: [facility] 09-26-2022 14:07-0400 Diastolic blood pressure 70 mm[Hg] Ayah Podlogar HEAD OF ETHICS AND COMPLIANCE.WASH TEST CHECKER Work Phone: [facility] 09-26-2022 14:07-0400 Heart rate 61 /min Ayah Podlogar HEAD OF ETHICS AND COMPLIANCE.WASH TEST CHECKER Work Phone: [facility] 09-26-2022 14:07-0400 Respiratory rate 18 /min Ayah Podlogar HEAD OF ETHICS AND COMPLIANCE.WASH TEST CHECKER Work Phone: [facility] 09-26-2022 14:07-0400 SaO2% (BldA) [Mass fraction] 97 % Ayah Podlogar HEAD OF ETHICS AND COMPLIANCE.WASH TEST CHECKER Work Phone: [facility] 09-26-2022 14:07-0400 Systolic blood pressure 118 mm[Hg] Ayah Thompson APRN.WASH TEST CHECKER Work Phone: [facility] 12-06-2018 09:23-0400 BMI (Body Mass Index) 24.27 kg/m2 [facility] 12-06-2018 09:23-0400 BP Diastolic 77 mm[Hg] [facility] 12-06-2018 09:23-0400 BP Systolic 135 mm[Hg] Reji [facility] 12-06-2018 09:23-0400 Height 157.[address] [facility] 12-06-2018 09:23-0400 Pulse (Heart Rate) 67 /min [facility] 12-06-2018 09:23-0400 Weight 60.[address] [facility] 10-16-2018 12:34-0400 BMI (Body Mass Index) 24.27 kg/m2 [facility] 10-16-2018 12:34-0400 BP Diastolic 74 mm[Hg] [facility] 10-16-2018 12:34-0400 BP Systolic 122 mm[Hg] [facility] 10-16-2018 12:34-0400 Height 157.[address] [facility] 10-16-2018 12:34-0400 Pulse (Heart Rate) 75 /min [facility] 10-16-2018 12:34-0400 Weight 60.[address] [facility] 10-29-2017 09:03-0400 BMI (Body Mass Index) 23.48 kg/m2 [facility] 10-29-2017 09:03-0400 BP Diastolic 72 mm[Hg] [facility] 10-29-2017 09:03-0400 BP Systolic 100 mm[Hg] [facility] 10-29-2017 09:03-0400 Height 157.5 cm [facility] 10-29-2017 09:03-0400 Pulse (Heart Rate) 66 /min [facility] 10-29-2017 09:03-0400 Pulse Oximetry 99 % [facility] 10-29-2017 09:03-0400 Weight 58.24 kg [facility] 10-16-2017 08:18-0400 BMI (Body Mass Index) 23.41 kg/m2 Reji Miller [facility] 10-16-2017 08:18-0400 BP Diastolic 70 mm[Hg] Reji Miller [facility] 10-16-2017 08:18-0400 BP Systolic 113 mm[Hg] Reji Miller [facility] 10-16-2017 08:18-0400 Height 157.5 cm Reji Miller [facility] 10-16-2017 08:18-0400 Weight 58.06 kg Reji Miller [facility] 09-25-2017 10:36-0400 BP Diastolic 75 mm[Hg] Reji Miller [facility] 09-25-2017 10:36-0400 BP Systolic 107 mm[Hg] Reji Miller [facility] 09-25-2017 10:36-0400 Pulse (Heart Rate) 75 /min Reji [facility] 09-25-2017 09:46-0400 BMI (Body Mass Index) 23.45 kg/m2 Reji [facility] 09-25-2017 09:46-0400 Height 157.5 cm Rejiruben Miller [facility] 09-25-2017 09:46-0400 Weight 58.15 kg Reji [facility] 01-29-2017 19:31-0400 BMI (Body Mass Index) 23.05 kg/m2 Aubree Morgan [facility] Work Phone: 01-29-2017 19:31-0400 Body Temperature 98.71 [degF] Aubree Morgan [facility] Work Phone: 01-29-2017 19:31-0400 BP Diastolic 62 mm[Hg] Aubree Morgan [facility] Work Phone: 01-29-2017 19:31-0400 BP Systolic 134 mm[Hg] Aubree Morgan [facility] Work Phone: 01-29-2017 19:31-0400 Height 157.5 cm Aubree Morgan [facility] Work Phone: 01-29-2017 19:31-0400 Pulse (Heart Rate) 90 /min Aubree Morgan [facility] Work Phone: 01-29-2017 19:31-0400 Pulse Oximetry 99 % Aubree Morgan [facility] Work Phone: 01-29-2017 19:31-0400 Respiratory Rate 16 /min Aubree Morgan [facility] Work Phone: 01-29-2017 19:31-0400 Weight 57.15 kg Aubree Morgan [facility] Work Phone: Encounters Encounter Date Encounter Type Care Provider Facility Start: 05-30-2023 End: 05-31-2023 ambulatory JOSH REBOLLEDO Facility:[facility] Start: 02-13-2023 Telephone encounter Austin Rebolledo MD Work Phone: [facility] [place] Start: 02-12-2023 Telephone encounter Ayah cheek APRN.CNP Work Phone: [facility] [place] Start: 02-08-2023 End: 02-08-2023 ambulatory JOSH REBOLLEDO Facility:[facility] Start: 02-08-2023 End: 02-08-2023 Patient encounter procedure Josh Rebolledo MD Work Phone: [facility] [place] Procedures Date Procedure Procedure Detail Performing Clinician Start: 03-07-2021 Mammography Austin Rebolledo MD Work Phone: Start: 12-23-2018 Echocardiography Reji Miller Work Phone: Start: 12-06-2018 12 lead ECG Reji Miller Work Phone: Start: 10-16-2018 12 lead ECG Reji Miller Work Phone: Start: 12-06-2015 Adult depression scr eening assessment Josh Rebolledo MD Work Phone: Plan of Treatment Date Care Activity Detail Author Start: 01-17-2026 LIPID SCREEN LIPID SCREEN [facility] Start: 09-01-2025 DIABETES SCREEN DIABETES SCREEN [facility] Start: 09-27-2023 ANNUAL PCP TEAM 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 VISIT ANNUAL PCP TEAM CHRONIC DISEASE VISIT [facility] Start: 09-27-2023 COVID-19 VACCINE (#1) COVID-19 VACCI NE (#1) [facility] Immunizations Immunization Date Immunization Notes Care Provider Fa [facility] 01-26-2015 pneumococcal polysaccharide vaccine, 23 radha Rebolledo MD Work Phone: [facility] Work Phone: Payers Date Payer Category Payer Medicare [id number] 2021 Medicare [employer] [place] [id number] 2021-Present [phone] [address] [place] [address] O [id number] 2019 Unknown HOSPITAL/MEDICAL GENERIC MEDICAL GENERIC [id number] 2019-Present [phone] [address] [place] [address] Indemnity [id number] 2019 Unknown HOSPITAL/MEDICAL GENERIC MEDICAL GENERIC [id number] 2019-Present [phone] [address] [place] [address] Indemnity [id number] 2015 Unknown [id number] 2014 Private Health Insurance [facility] [id number] 3 2012 Medicare 2011 Medicare [id number] 3 2011 Medicare MEDICARE MEDICAR E PART A & B xxxxxxxxxxx 2011-Present [place] [id number] 2011 Medicare [id number] 1959 Medicare [id number] 1959 Unknown [id number] 1946 Unknown [id number] 1946 Unknown [id number] [id number] 1946 Unknown [id number] [id number] 1946 Unknown [id number] [id number] 1946 Unknown [id number] 1946 Unknown [id number] 1946 Unknown [id number] [id number] 1946 Unknown [id number] [id number] 1946 Unknown [id number] [id number] 1946 Unknown [id number] [id number] Medicare [id number] 3 Private Health Insurance [employer]AL LIFE [id number] Effective for all dates [id number] Social History Date Type Detail Facility Start: 10-16-2017 End: 09-26-2022 Tobacco smoking status NYIS Never smoker [facility] Start: 1945 Sex Assigned At Not on file [employer] Phone: Start: 12-06-2018 End: 09-26-2022 Tobacco use and exposure Never used [facility] Start: 12-06-2018 End: 02-08-2023 Alcohol intake Current non-drinker of alcohol (finding) [facility] Start: 1945 Sex Assigned At Female [facility] Start: 09-21-2022 History SDOH Alcohol Frequency 1 [facility] Start: 09-21-2022 History SDOH Alcohol Std Drinks 0 [facility] Start: 09-21-2022 History SDOH Social Connections Phone 5 [facility] Start: 09-21-2022 History SDOH Social Connections Get Together 3 [facility] Start: 09-21-2022 History SDOH Stress 2 [facility] Tobacco smoking stat [facility] Tobacco smoking consumption unknown [facility] Start: 09-21-2022 End: 02-08-2023 Gender identity Not on file [facility] Start: 09-21-2022 End: 02-08-2023 History of Social function [facility] Do you belong to any clubs or organizations such as sikhism groups, unions, fraternal or athletic groups, or school groups? Yes [facility] Are you now , , , , never or living with a partner? [facility] How often to you hav e a drink containing alcohol? Never [facility] How many standard dr inks containing alcohol do you have on a typical day? Patient does not drink [facility] Do you feel stress - tense, restless, nervous, or anxious, or unable to sleep at night because your mind is troubled all the time - these days [OSQ] Only a little [facility] (I/We) worried wheth er (my/our) food would run out before (I/we) got money to buy more. Never true [facility] In the past 12 month s, was there a time when you were not able to pay the mortgage or rent on time? No [facility] Start: 09-21-2022 Gender identity Identifies as female gender (finding) [facility] Start: 11-18-2018 Sexual orientation Heterosexual (finding) [facility] Medical Equipment Procedure Code Equipment Code Equipment Origin al Text Equipment Identifier Dates Screw Bone 6.5mm Lgt 30 Canc - [id number] Start: 07-27-2015 Screw Bone 6.5mm Lgt 20 Canc - [id number] Start: 07-27-2015 Liner 36 X 52 +4 Neut Altrx - [id number] Start: 07-27-2015 Cup 52mm Acetabu lar - [id number] Start: 07-27-2015 Stem Sz5 Hi Off Taper Por [place] - [id number] Start: 07-27-2015 Head 12/14 36mm +1.5 Hip Delta Ceramic Ts - [id number] Start: 07-27-2015 Cup 52mm Acetabu lar - [id number] Start: 10-09-2016 Liner 36 X 52 +4 Neut Altrx - [id number] Start: 10-09-2016 Stem Hip Tapered W/Porocoat - [id number] Start: 10-09-2016 Head 12/14 36mm +1.5 Hip Delta Ceramic Ts - [id number] Start: 10-09-2016 Sealant 2ml Fibr in Evicel Kit (10/Bx) - [id number] Start: 10-09-2016 Screw Bone 6.5mm Lgt 20 Canc - [id number] Start: 10-09-2016 Screw Bone 6.5mm Lgt 30 Canc - [id number] Start: 10-09-2016 Screw Bone 6.5mm Lgt 30 Canc - [id number] Start: 07-27-2015 Screw Bone 6.5mm Lgt 20 Canc - [id number] Start: 07-27-2015 Liner 36 X 52 +4 Neut Altrx - [id number] Start: 07-27-2015 Cup 52mm Acetabu lar - [id number] Start: 07-27-2015 Stem Sz5 Hi Off Taper Por [place] - [id number] Start: 07-27-2015 Head 12/14 36mm +1.5 Hip Delta Ceramic Ts - [id number] Start: 07-27-2015 Cup 52mm Acetabu lar - [id number] Start: 10-09-2016 Liner 36 X 52 +4 Neut Altrx - [id number] Start: 10-09-2016 Stem Hip Tapered W/Porocoat - [id number] Start: 10-09-2016 Head 12/14 36mm +1.5 Hip Delta Ceramic Ts - [id number] Start: 10-09-2016 Sealant 2ml Fibr in Evicel Kit (10/Bx) - [id number] Start: 10-09-2016 Screw Bone 6.5mm Lgt 20 Canc - [id number] Start: 10-09-2016 Screw Bone 6.5mm Lgt 30 Canc - [id number] Start: 10-09-2016 Screw Bone 6.5mm Lgt 30 Canc - [id number] Start: 07-27-2015 Screw Bone 6.5mm Lgt 20 Canc - [id number] Start: 07-27-2015 Liner 36 X 52 +4 Neut Altrx - [id number] Start: 07-27-2015 Cup 52mm Acetabu lar - [id number] Start: 07-27-2015 Stem Sz5 Hi Off Taper Por [place] - [id number] Start: 07-27-2015 Head 12/14 36mm +1.5 Hip Delta Ceramic Ts - [id number] Start: 07-27-2015 Cup 52mm Acetabu lar - [id number] Start: 10-09-2016 Liner 36 X 52 +4 Neut Altrx - [id number] Start: 10-09-2016 Stem Hip Tapered W/Porocoat - [id number] Start: 10-09-2016 Head 12/14 36mm +1.5 Hip Delta Ceramic Ts - [id number] Start: 10-09-2016 Sealant 2ml Fibr in Evicel Kit (10/Bx) - [id number] Start: 10-09-2016 Screw Bone 6.5mm Lgt 20 Canc - [id number] Start: 10-09-2016 Screw Bone 6.5mm Lgt 30 Canc - [id number] Start: 10-09-2016 Screw Bone 6.5mm Lgt 30 Canc - [id number] Start: 07-27-2015 Screw Bone 6.5mm Lgt 20 Canc - [id number] Start: 07-27-2015 Liner 36 X 52 +4 Neut Altrx - [id number] Start: 07-27-2015 Cup 52mm Acetabu lar - [id number] Start: 07-27-2015 Stem Sz5 Hi Off Taper Por [place] - [id number] Start: 07-27-2015 Head 12/14 36mm +1.5 Hip Delta Ceramic Ts - [id number] Start: 07-27-2015 Cup 52mm Acetabu lar - [id number] Start: 10-09-2016 Liner 36 X 52 +4 Neut Altrx - [id number] Start: 10-09-2016 Stem Hip Tapered W/Porocoat - [id number] Start: 10-09-2016 Head 12/14 36mm +1.5 Hip Delta Ceramic Ts - [id number] Start: 10-09-2016 Sealant 2ml Fibr in Evicel Kit (10Bx) - [id number] Start: 10-09-2016 Screw Bone 6.5mm Lgt 20 Canc - [id number] Start: 10-09-2016 Screw Bone 6.5mm Lgt 30 Canc - [id number] Start: 10-09-2016 Screw Bone 6.5mm Lgt 30 Canc - [id number] Start: 07-27-2015 Screw Bone 6.5mm Lgt 20 Canc - [id number] Start: 07-27-2015 Liner 36 X 52 +4 Neut Altrx - [id number] Start: 07-27-2015 Cup 52mm Acetabu lar - [id number] Start: 07-27-2015 Stem Sz5 Hi Off Taper Por [place] - [id number] Start: 07-27-2015 Head 12/14 36mm +1.5 Hip Delta Ceramic Ts - [id number] Start: 07-27-2015 Cup 52mm Acetabu lar - [id number] Start: 10-09-2016 Liner 36 X 52 +4 Neut Altrx - [id number] Start: 10-09-2016 Stem Hip Tapered W/Porocoat - [id number] Start: 10-09-2016 Head 12/14 36mm +1.5 Hip Delta Ceramic Ts - [id number] Start: 10-09-2016 Sealant 2ml Fibr in Evicel Kit (10Bx) - [id number] Start: 10-09-2016 Screw Bone 6.5mm Lgt 20 Canc - [id number] Start: 10-09-2016 Screw Bone 6.5mm Lgt 30 Canc - [id number] Start: 10-09-2016 Screw Bone 6.5mm Lgt 30 Canc - [id number] Start: 07-27-2015 Screw Bone 6.5mm Lgt 20 Canc - [id number] Start: 07-27-2015 Liner 36 X 52 +4 Neut Altrx - [id number] Start: 07-27-2015 Cup 52mm Acetabu lar - [id number] Start: 07-27-2015 Stem Sz5 Hi Off Taper Por [place] - [id number] Start: 07-27-2015 Head 12/14 36mm +1.5 Hip Delta Ceramic Ts - [id number] Start: 07-27-2015 Cup 52mm Acetabu lar - [id number] Start: 10-09-2016 Liner 36 X 52 +4 Neut Altrx - [id number] Start: 10-09-2016 Stem Hip Tapered W/Porocoat - [id number] Start: 10-09-2016 Head 12/14 36mm +1.5 Hip Delta Ceramic Ts - [id number] Start: 10-09-2016 Sealant 2ml Fibr in Evicel Kit (Bx) - [id number] Start: 10-09-2016 Screw Bone 6.5mm Lgt 20 Canc - [id number] Start: 10-09-2016 Screw Bone 6.5mm Lgt 30 Canc - [id number] Start: 10-09-2016 Screw Bone 6.5mm Lgt 30 Canc - [id number] Start: 07-27-2015 Screw Bone 6.5mm Lgt 20 Canc - [id number] Start: 07-27-2015 Liner 36 X 52 +4 Neut Altrx - [id number] Start: 07-27-2015 Cup 52mm Acetabu lar - [id number] Start: 07-27-2015 Stem Sz5 Hi Off Taper Por [place] - [id number] Start: 07-27-2015 Head 12/14 36mm +1.5 Hip Delta Ceramic Ts - [id number] Start: 07-27-2015 Cup 52mm Acetabu lar - [id number] Start: 10-09-2016 Liner 36 X 52 +4 Neut Altrx - [id number] Start: 10-09-2016 Stem Hip Tapered W/Porocoat - [id number] Start: 10-09-2016 Head 12/14 36mm +1.5 Hip Delta Ceramic Ts - [id number] Start: 10-09-2016 Sealant 2ml Fibr in Evicel Kit (Bx) - [id number] Start: 10-09-2016 Screw Bone 6.5mm Lgt 20 Canc - [id number] Start: 10-09-2016 Screw Bone 6.5mm Lgt 30 Canc - [id number] Start: 10-09-2016 Screw Bone 6.5mm Lgt 30 Canc - [id number] Start: 07-27-2015 Screw Bone 6.5mm Lgt 20 Canc - [id number] Start: 07-27-2015 Liner 36 X 52 +4 Neut Altrx - [id number] Start: 07-27-2015 Cup 52mm Acetabu lar - [id number] Start: 07-27-2015 Stem Sz5 Hi Off Taper Por [place] - [id number] Start: 07-27-2015 Head 12/14 36mm +1.5 Hip Delta Ceramic Ts - [id number] Start: 07-27-2015 Cup 52mm Acetabu lar - [id number] Start: 10-09-2016 Liner 36 X 52 +4 Neut Altrx - [id number] Start: 10-09-2016 Stem Hip Tapered W/Porocoat - [id number] Start: 10-09-2016 Head 12/14 36mm +1.5 Hip Delta Ceramic Ts - [id number] Start: 10-09-2016 Sealant 2ml Fibr in Evicel Kit (10/Bx) - [id number] Start: 10-09-2016 Screw Bone 6.5mm Lgt 20 Canc - [id number] Start: 10-09-2016 Screw Bone 6.5mm Lgt 30 Canc - [id number] Start: 10-09-2016 Screw Bone 6.5mm Lgt 30 Canc - [id number] Start: 07-27-2015 Screw Bone 6.5mm Lgt 20 Canc - [id number] Start: 07-27-2015 Liner 36 X 52 +4 Neut Altrx - [id number] Start: 07-27-2015 Cup 52mm Acetabu lar - [id number] Start: 07-27-2015 Stem Sz5 Hi Off Taper Por [place] - [id number] Start: 07-27-2015 Head 12/14 36mm +1.5 Hip Delta Ceramic Ts - [id number] Start: 07-27-2015 Cup 52mm Acetabu lar - [id number] Start: 10-09-2016 Liner 36 X 52 +4 Neut Altrx - [id number] Start: 10-09-2016 Stem Hip Tapered W/Porocoat - [id number] Start: 10-09-2016 Head 12/14 36mm +1.5 Hip Delta Ceramic Ts - [id number] Start: 10-09-2016 Sealant 2ml Fibr in Evicel Kit (10/Bx) - [id number] Start: 10-09-2016 Screw Bone 6.5mm Lgt 20 Canc - [id number] Start: 10-09-2016 Screw Bone 6.5mm Lgt 30 Canc - [id number] Start: 10-09-2016 Screw Bone 6.5mm Lgt 30 Canc - [id number] Start: 07-27-2015 Screw Bone 6.5mm Lgt 20 Canc - [id number] Start: 07-27-2015 Liner 36 X 52 +4 Neut Altrx - [id number] Start: 07-27-2015 Cup 52mm Acetabu lar - [id number] Start: 07-27-2015 Stem Sz5 Hi Off Taper Por [place] - [id number] Start: 07-27-2015 Head 12/14 36mm +1.5 Hip Delta Ceramic Ts - [id number] Start: 07-27-2015 Cup 52mm Acetabu lar - [id number] Start: 10-09-2016 Liner 36 X 52 +4 Neut Altrx - [id number] Start: 10-09-2016 Stem Hip Tapered W/Porocoat - [id number] Start: 10-09-2016 Head 12/14 36mm +1.5 Hip Delta Ceramic Ts - [id number] Start: 10-09-2016 Sealant 2ml Fibr in Evicel Kit (10/Bx) - [id number] Start: 10-09-2016 Screw Bone 6.5mm Lgt 20 Canc - [id number] Start: 10-09-2016 Screw Bone 6.5mm Lgt 30 Canc - [id number] Start: 10-09-2016 Screw Bone 6.5mm Lgt 30 Canc - [id number] Start: 07-27-2015 Screw Bone 6.5mm Lgt 20 Canc - [id number] Start: 07-27-2015 Liner 36 X 52 +4 Neut Altrx - [id number] Start: 07-27-2015 Cup 52mm Acetabu lar - [id number] Start: 07-27-2015 Stem Sz5 Hi Off Taper Por [place] - [id number] Start: 07-27-2015 Head 12/14 36mm +1.5 Hip Delta Ceramic Ts - [id number] Start: 07-27-2015 Cup 52mm Acetabu lar - [id number] Start: 10-09-2016 Liner 36 X 52 +4 Neut Altrx - [id number] Start: 10-09-2016 Stem Hip Tapered W/Porocoat - [id number] Start: 10-09-2016 Head 12/14 36mm +1.5 Hip Delta Ceramic Ts - [id number] Start: 10-09-2016 Sealant 2ml Fibr in Evicel Kit (/) - [id number] Start: 10-09-2016 Screw Bone 6.5mm Lgt 20 Canc - [id number] Start: 10-09-2016 Screw Bone 6.5mm Lgt 30 Canc - [id number] Start: 10-09-2016 Clinical Notes 09-09-2021 to 05-30-2023 Telephone Encounter - Maria Ines Ferreira RN - 02/13/2023 10:09 AM EDTTelephone Encounter - Ayah Thompson APRN.WASH TEST CHECKER - 02/12/2023 4:16 PM Josh Fuller MD - 02/08/2023 4:24 PM EDT Note Date & Type Note Facility 05-30-2023 Note HNO ID: [id number] Author: Ayah Thompson APRN.WASH TEST CHECKER Service: ? Author Type: Nurse Practitioner Type: Progress Notes Filed: 05/30/2023 1:02 PM Note Text: 05/30/2023 Patient presents with: Covid Follow Up: Having chest pain, upper mid chest discomfort, believes its from lifting something at home. SUBJECTIVE: This is a 77 year old that is here today for Above Complaints. HOSPITAL/ER FOLLOW UP: Reason for visit: fever, chest pain Which facility: [facility] Date of visit: 05/22/2033 Diagnosis: COVID-19 + Testing done: blood work, UA, COVID-19 and influenza testing, CXR and EKG Treatment given: ibuprofen Still with chest pain. Reports it moves around. When lies down will hurt on her right side down. Lying on right side makes it better but when turns to left side it hurts.Started with the cough when she has COVID-19. Described as aching Also hurts over right breast bone. Not taking anything for pain. She reports she is always SOB to some degree but not worsening. Denies lightheadedness, dizziness, dyspnea, orthopnea, jaw/back pain, nausea, or vomiting. She thinks it may be a pulled muscle but she doesn't remember doing anything that would have caused this. Hospital records reviewed PAST MEDICAL HISTORY Diagnosis Date Gastroparesis GERD (gastroesophageal reflux disease) Hypothyroidism OA (osteoarthritis) Osteopenia Sleep disorder elavil for intermittent insomnia Tarsal tunnel syndrome of right side ALLERGIES Black Dye, Nickel, and Tylenol [Acetaminophen] MEDICATIONS Current Outpatient Medications Medication Sig levothyroxine (SYNTHROID) 100 mcg tablet Take one tablet six days a week furosemide (LASIX) 20 mg tablet Take 1 tablet by mouth as needed. for swelling amitriptyline (ELAVIL) 10 mg tablet Take 1 tablet by mouth daily at bedtime. as needed famotidine (PEPCID) 20 mg tablet Take 1 tablet by mouth at bedtime as needed. cyanocobalamin (VITAMIN B-12) 1,000 mcg tab Take 1,000 mcg by mouth once daily. Bifidobacterium Infantis (ALIGN) 4 mg cap Take by mouth once daily. Cholecalciferol, Vitamin D3, 25 mcg (1,000 unit) cap Take 1,000 Units by mouth once daily. multivitamin tablet Take 1 tablet by mouth once daily. No current facility-administered medications for this visit. Medications and allergies reviewed by this provider. SOCIAL HISTORY Social History Tobacco Use Smoking status: Never Smokeless tobacco: Never Vaping Use Vaping Use: Never used Substance Use Topics Alcohol use: No Drug use: No REVIEW OF SYSTEMS All other reviewed and negative other than HPI. OBJECTIVE: BP 142/82 Pulse (!) 56 Resp 18 Wt 65 kg (143 lb 6.4 oz) SpO2 97% BMI 26.39 kg/m? . Vital signs reviewed by this provider. APPEARANCE Well appearing, alert, in no acute distress, well-hydrated, well nourished. EYES PERRLA, conjunctiva and sclera normal. HEART RRR with normal S1 and S2, no murmurs, no gallops, no JVD appreciated CHEST WALL: Mild TTP over right breastbone- no obvious deformity LUNG clear to auscultation. No wheezes, rhonchi or rales SKIN Skin color, texture, turgor normal, no suspicious rashes or lesions to exposed skin Hepatitis C Screening Never done RSV Vaccine(1 - 1-dose 60+ series) Never done Advance Directive Discussion Never done Depression Assessment Never done Influenza Vaccine(1) due on 02/16/2023 DTaP,Tdap,Td Vaccine(1 - Tdap) due on 09/27/2023 Shingrix Vaccine(1 of 2) due on 09/27/2023 Covid-19 Vaccine(1) due on 09/27/2023 Diabetes Screening due on 09/01/2025 Bone Density Screening Completed Pneumococcal Vaccine: 65+ Completed Mammogram Screening Discontinued Colorectal Cancer Screening Discontinued ASSESSMENT/PLAN: 1. Chest wall pain - ICD9: 786.52, ICD10: R07.89 Atypical chest pain, symptoms are not consistent with cardiac ischemia due to nonexertional nature of symptom and localization of the pain possible etiology include Costochondritis/chest wall pain and musculoskeletal - no red flag symptoms or exam findings - red flag symptoms discussed, verbalizes understanding - recommend OTC oral or topical pain reliever as directed on packaging. May use heat for 15 minutes at at a time - follow-up if fails to improve to ER with red flag symptoms Ayah Thompson APRN.CNP Prescription instructions reviewed with patient as applicable. Patient advised if symptoms do not improve or if symptoms worsen sooner, to contact their primary care physician. Potential red flag symptoms discussed with the patient. Reviewed appropriate action plan to take if red flag symptoms occur. Patient agreeable to treatment plan. I spent a total of 25 minutes on the date of the service which included preparing to see the patient, [id number] patient care, completing clinical documentation, obtaining and/or reviewing separately obtained history, performing a medically appropriate examination, counseling and educating the patient/ (more content not included)... [facility] 02-13-2023 Miscellaneous Notes Pt called and is notified of results Maria Ines Ferreira, RN Xray shows no acute findings. Ayah Thompson APRN.CNP documented in this encounter [facility] 02-13-2023 Miscellaneous Notes Patient notified and verbalized understanding Tamara Obrien Cma ----- Message from Josh Rebolledo MD sent at 02/13/2023 8:31 AM EDT ----- Xray of her hips is normal. Continue treatment as discussed in office. documented in this encounter [facility] 02-08-2023 Note HNO ID: [id number] Author: Danelle Underwood RT(R) Service: ? Author Type: Yardmaster Type: Progress Notes Filed: 02/08/2023 5:15 PM Note Text: Radiology Service Progress Note PATIENT NAME: Tarsha Hardy DATE OF SERVICE: February 08, 2023 TIME: 4:53 PM PATIENT IDENTITY VERIFICATION COMPLETED USING TWO (2) IDENTIFIERS: Name and Date of confirmed by patient verbally. FALL SCREENING: Has the patient had 2 falls in the last year or 1 fall with injury or currently using an Ambulatory Assistive Device (Walker, Cane, Wheelchair, Crutches, etc.)? No PATIENT GENDER DATA: Female. status: : No status: NO. PATIENT RELEVANT IMPLANT DATA REVIEWED: Yes RADIOLOGY DEPARTMENT: General X-ray: Exam(s) Completed: Spine X-Ray(s): Lumbar AP / LAT / L5-S1 Pelvis X-Ray: Pelvis with Hip Bilateral PERIPHERAL IV DATA: Not applicable SIGNED BY: RT Colby(R) February 08, 2023 4:53 PM [facility] 02-08-2023 Note HNO ID: [id number] Author: Josh Rebolledo MD Service: ? Author Type: Physician Type: Progress Notes Filed: 02/13/2023 3:55 PM Note Text: Chief Complaint Patient presents with: issues resulting from fall from a fall approx 1 month ago Mouth/Lip Problem: Patient thinks she has HPI Tarsha Hardy is a 77 year old female who presents here today for Above Complaints. Patient states that she fell down 6-7 stairs at home about a month ago without LOC. Cannot recall if she hit her head, but did not have any signs of head injury/trauma or concussion. Was able to get up on her own after the fall, but did have some pain over her hips which she was treating with ice. Continues to have bilateral posterior hip and thigh pain which is described as constant pressure. Currently 7/10 Exacerbated with lying down at night. Has been taking ibuprofen OTC which has not been helping. Denies bruising or swelling to her hips. Also complaining of possible thrush with tongue burning and white coating for 3-4 days after she finished abx for sinus infection. Past medical history, appointments, medications, allergies reviewed. Previous Medical History PAST MEDICAL HISTORY Diagnosis Date Gastroparesis GERD (gastroesophageal reflux disease) Hypothyroidism OA (osteoarthritis) Osteopenia Sleep disorder elavil for intermittent insomnia Tarsal tunnel syndrome of right side Previous Surgical History PAST SURGICAL HISTORY Procedure Laterality Date BACK SURGERY HX PAST SURGICAL HISTORY OF 04/19/2009 endoluminal fundoplication PAST SURGICAL HISTORY OF eye surgery: six eye surgeries TOTAL HIP REPLACEMENT Bilateral Family History FAMILY HISTORY Problem Relation Age of Onset Heart Mother Heart Father Breast Cancer Sister other (dementia [Other]) Sister Ischemic Heart Disease Sister Ischemic Heart Disease Brother Patient Allergies ALLERGIES Allergen Reactions Black Dye Unknown Nickel Other: See Comments Puss and bleeding Tylenol [Acetaminop* Rash, Itching Current Medications Current Outpatient Medications on File Prior to Visit Medication Sig levothyroxine (SYNTHROID) 100 mcg tablet Take one tablet six days a week furosemide (LASIX) 20 mg tablet Take 1 tablet by mouth as needed. for swelling amitriptyline (ELAVIL) 10 mg tablet Take 1 tablet by mouth daily at bedtime. as needed famotidine (PEPCID) 20 mg tablet Take 1 tablet by mouth at bedtime as needed. cyanocobalamin (VITAMIN B-12) 1,000 mcg tab Take 1,000 mcg by mouth once daily. Bifidobacterium Infantis (ALIGN) 4 mg cap Take by mouth once daily. Cholecalciferol, Vitamin D3, 25 mcg (1,000 unit) cap Take 1,000 Units by mouth once daily. multivitamin tablet Take 1 tablet by mouth once daily. No current facility-administered medications on file prior to visit. Social History Social History Tobacco Use Smoking status: Never Smokeless tobacco: Never Vaping Use Vaping Use: Never used Substance Use Topics Alcohol use: No Drug use: No Review of Symptoms REVIEW OF SYSTEMS See HPI EXAM: BP 122/62 Pulse 61 Resp 16 Wt 63.3 kg (139 lb 9.6 oz) SpO2 98% BMI 25.69 kg/m? General Appearance: Well appearing, alert, in no acute distress, well-hydrated, well nourished.. Skin: Skin color, texture, turgor normal, no suspicious rashes or lesions. Oropharynx: white coating on tongue consistent with thrush. Unable to remove with tongue blade. Back:no pain to palpation of vertebrae, good flexion and extension, good range of motion, reflexes are 2+ and symmetric, motor and sensory appear to be normal, negative SLR test, no evidence of scoliosis. Positive for TTP over lumbar paraspinal muscles and buttock bilaterally HIP: Location: BIlateral Redness: No. Warmth: No. Range of motion: WNL Tenderness over trochanteric bursa: No Pain with movement: Yes. Health Maintenance List HEPATITIS C SCREENING Never done ADVANCE DIRECTIVE DISCUSSION Never done DEPRESSION ASSESSMENT Never done DTAP,TDAP,TD(1 - Tdap) due on 09/27/2023 SHINGRIX VACCINE(1 of 2) due on 09/27/2023 COVID-19 VACCINE(1) due on 09/27/2023 PNEUMOCOCCAL: 65+(2 - PCV) due on 09/27/2023 INFLUENZA(1) due on 02/16/2023 DIABETES SCREEN due on 09/01/2025 BONE DENSITY Completed MAMMOGRAM Discontinued COLORECTAL CANCER SCREENING Discontinued ASSESSMENT/PLAN: 1. Bilateral hip pain - ICD9: 719.45, ICD10: M25.551, M25.552 (primary diagnosis) Obtain xrays of hip and will treat with NSAIDs as prescribed. Discussed rest,ice, and home exercises. Refer to PT. Red flags for re-assessment reviewed with patient in detail. . - XR HIP BILATERAL 5V PEL/AP/LAT EACH HIP - MELOXICAM 15 MG TABLET 2. Fall in home, initial encounter - ICD9: E888.9, E849.0, ICD10: W19.XXXA, Y92.009 Obtain xrays of hips and lumbar spine due to continued pain after fall. See above. - XR HIP BILATERAL 5V PEL/AP/LAT EACH HIP - XR LUMB (more content not included)... [facility] 02-08-2023 History of Presen t illness Narrative Chief Complaint Patient presents with: issues resulting from fall from a fall approx 1 month ago Mouth/Lip Problem: Patient thinks she has HPI Tarsha Hardy is a 77 year old female who presents here today for Above Complaints. Patient states that she fell down 6-7 stairs at home about a month ago without LOC. Cannot recall if she hit her head, but did not have any signs of head injury/trauma or concussion. Was able to get up on her own after the fall, but did have some pain over her hips which she was treating with ice. Continues to have bilateral posterior hip and thigh pain which is described as constant pressure. Currently 7/10 Exacerbated with lying down at night. Has been taking ibuprofen OTC which has not been helping. Denies bruising or swelling to her hips. Also complaining of possible thrush with tongue burning and white coating for 3-4 days after she finished abx for sinus infection. Past medical history, appointments, medications, allergies reviewed. Previous Medical History PAST MEDICAL HISTORY Diagnosis Date Gastroparesis GERD (gastroesophageal reflux disease) Hypothyroidism OA (osteoarthritis) Osteopenia Sleep disorder elavil for intermittent insomnia Tarsal tunnel syndrome of right side Previous Surgical History PAST SURGICAL HISTORY Procedure Laterality Date BACK SURGERY HX PAST SURGICAL HISTORY OF 04/19/2009 endoluminal fundoplication PAST SURGICAL HISTORY OF eye surgery: six eye surgeries TOTAL HIP REPLACEMENT Bilateral Family History FAMILY HISTORY Problem Relation Age of Onset Heart Mother Heart Father Breast Cancer Sister other (dementia [Other]) Sister Ischemic Heart Disease Sister Ischemic Heart Disease Brother Patient Allergies ALLERGIES Allergen Reactions Black Dye Unknown Nickel Other: See Comments Puss and bleeding Tylenol [Acetaminop* Rash, Itching Current Medications Current Outpatient Medications on File Prior to Visit Medication Sig levothyroxine (SYNTHROID) 100 mcg tablet Take one tablet six days a week furosemide (LASIX) 20 mg tablet Take 1 tablet by mouth as needed. for swelling amitriptyline (ELAVIL) 10 mg tablet Take 1 tablet by mouth daily at bedtime. as needed famotidine (PEPCID) 20 mg tablet Take 1 tablet by mouth at bedtime as needed. cyanocobalamin (VITAMIN B-12) 1,000 mcg tab Take 1,000 mcg by mouth once daily. Bifidobacterium Infantis (ALIGN) 4 mg cap Take by mouth once daily. Cholecalciferol, Vitamin D3, 25 mcg (1,000 unit) cap Take 1,000 Units by mouth once daily. multivitamin tablet Take 1 tablet by mouth once daily. No current facility-administered medications on file prior to visit. Social History Social History Tobacco Use Smoking status: Never Smokeless tobacco: Never Vaping Use Vaping Use: Never used Substance Use Topics Alcohol use: No Drug use: No Review of Symptoms REVIEW OF SYSTEMS See HPI EXAM: BP 122/62 Pulse 61 Resp 16 Wt 63.3 kg (139 lb 9.6 oz) SpO2 98% BMI 25.69 kg/m General Appearance: Well appearing, alert, in no acute distress, well-hydrated, well nourished.. Skin: Skin color, texture, turgor normal, no suspicious rashes or lesions. Oropharynx: white coating on tongue consistent with thrush. Unable to remove with tongue blade. Back:no pain to palpation of vertebrae, good flexion and extension, good range of motion, reflexes are 2+ and symmetric, motor and sensory appear to be normal, negative SLR test, no evidence of scoliosis. Positive for TTP over lumbar paraspinal muscles and buttock bilaterally HIP: Location: BIlateral Redness: No. Warmth: No. Range of motion: WNL Tenderness over trochanteric bursa: No Pain with movement: Yes. Health Maintenance List HEPATITIS C SCREENING Never done ADVANCE DIRECTIVE DISCUSSION Never done DEPRESSION ASSESSMENT Never done DTAP,TDAP,TD(1 - Tdap) due on 09/27/2023 SHINGRIX VACCINE(1 of 2) due on 09/27/2023 COVID-19 VACCINE(1) due on 09/27/2023 PNEUMOCOCCAL: 65+(2 - PCV) due on 09/27/2023 INFLUENZA(1) due on 02/16/2023 DIABETES SCREEN due on 09/01/2025 BONE DENSITY Completed MAMMOGRAM Discontinued COLORECTAL CANCER SCREENING Discontinued ASSESSMENT/PLAN: 1. Bilateral hip pain - ICD9: 719.45, ICD10: M25.551, M25.552 (primary diagnosis) Obtain xrays of hip and will treat with NSAIDs as prescribed. Discussed rest,ice, and home exercises. Refer to PT. Red flags for re-assessment reviewed with patient in detail. . - XR HIP BILATERAL 5V PEL/AP/LAT EACH HIP - MELOXICAM 15 MG TABLET 2. Fall in home, initial encounter - ICD9: E888.9, E849.0, ICD10: W19.XXXA, Y92.009 Obtain xrays of hips and lumbar spine due to continued pain after fall. See above. - XR HIP BILATERAL 5V PEL/AP/LAT EACH HIP - XR LUMBAR GENERAL 3V AP/LAT/L5-S1 - CONSULT TO PHYSICAL THERAPY - MELOXICAM 15 MG TABLET 3. Acute midline low back pain without sciatica - ICD9: 724.2, ICD10: M54.50 Obtain xrays. Discussed rest,ice, and home exercises. Refer to PT. Red flags for re-assessment reviewed with patient in detail. . - XR LUMBAR GENERAL 3V AP/LAT/L5-S1 - MELOXICAM 15 MG TABLET 4. Thrush - ICD9: 112.0, ICD10: B37.0 Start nystatin for 7-14 days as directed. Call if thrush not resolved after 14 days of treatment. - NYSTATIN 100,000 UNIT/ML ORAL SUSPENSION Josh Rebolledo MD documented in this encounter [facility] 02-07-2023 Miscellaneous Notes Patient called in and asked if I could make Ayah Podlogar aware of this message. She mentioned that she knows Ayah and would understand. She then got off the phone before I was able to open the review tab to see the contents of the message. Please review. documented in this encounter [facility] 12-30-2022 Telephone encounter Note S: Patient called the [facility] clinical access center with question about medication coverage B: Ongoing today A: Patient is prescribed ZENPEP. Patient is asking if medication is covered by insurance. . R: Advised patient to call back Sunday when office is open.Reviewed phone number for customer service on back of insurance card. Patient instructed to call back with concerns or questions. Patient verbalized understanding. Reason for Disposition General information question, no triage required and triager able to answer question Protocols used: Information Only Call - No [id number] [facility] 12-30-2022 Miscellaneous Notes S: Patient called the [facility] clinical access center with question about medication coverage B: Ongoing today A: Patient is prescribed ZENPEP. Patient is asking if medication is covered by insurance. . R: Advised patient to call back Sunday when office is open.Reviewed phone number for customer service on back of insurance card. Patient instructed to call back with concerns or questions. Patient verbalized understanding. Reason for Disposition General information question, no triage required and triager able to answer question Protocols used: Information Only Call - No [id number] documented in this encounter [facility] 09-26-2022 Note HNO ID: [id number] Author: Ayah Thompson APRN.WASH TEST CHECKER Service: ? Author Type: Nurse Practitioner Type: Progress Notes Filed: 09/26/2022 3:35 PM Note Text: 09/26/2022 Patient presents with: Recheck: Recently came back from [place] and was being seen for persistent cough and chest pressure. Increased fatigue. Sees pulmonary 09/27/22 And sees GI in November. SUBJECTIVE: This is a 76 year old that is here today for Above Complaints. Recently moved back from [place] HYPOTHYROIDISM: Has recent blood work. Dropped her synthroid to 6 days a week about one month ago. Taking and tolerating without side effects Reports she has follow-up with color buffer Dr. Martin tomorrow for persistent cough, chest pressure and fatigue. Reports she completed ECHO, stress test and EKG in [place] prior to moving. Patient reports testing was normal Following up with gastroenterology in November for hx of gastroparesis Noticed a lump to left lower leg a few months ago. Sometimes aches. Does not remember any injury. Medications and hx reviewed PAST MEDICAL HISTORY Diagnosis Date Gastroparesis GERD (gastroesophageal reflux disease) Hypothyroidism OA (osteoarthritis) Osteopenia Sleep disorder elavil for intermittent insomnia Tarsal tunnel syndrome of right side ALLERGIES Black Dye, Nickel, and Tylenol [Acetaminophen] MEDICATIONS Current Outpatient Medications Medication Sig levothyroxine (SYNTHROID) 100 mcg tablet Take 1 tablet by mouth once daily. amitriptyline (ELAVIL) 10 mg tablet Take 1 tablet by mouth daily at bedtime. as needed cyanocobalamin (VITAMIN B-12) 1,000 mcg tab Take 1,000 mcg by mouth once daily. Bifidobacterium Infantis (ALIGN) 4 mg cap Take by mouth once daily. Cholecalciferol, Vitamin D3, 25 mcg (1,000 unit) cap Take 1,000 Units by mouth once daily. multivitamin tablet Take 1 tablet by mouth once daily. furosemide (LASIX) 20 mg tablet Take 1 tablet by mouth as needed. for swelling famotidine (PEPCID) 20 mg tablet Take 1 tablet by mouth at bedtime as needed. No current facility-administered medications for this visit. Medications and allergies reviewed by this provider. SOCIAL HISTORY Social History Tobacco Use Smoking status: Never Smokeless tobacco: Never Vaping Use Vaping Use: Never used Substance Use Topics Alcohol use: No Drug use: No REVIEW OF SYSTEMS All other reviewed and negative other than HPI. OBJECTIVE: BP 118/70 Pulse 61 Resp 18 Wt 63.2 kg (139 lb 6.4 oz) SpO2 97% BMI 25.65 kg/m? . Vital signs reviewed by this provider. APPEARANCE Well appearing, alert, in no acute distress, well-hydrated, well nourished. EYES PERRLA, conjunctiva and sclera normal. HEART RRR with normal S1 and S2, no murmurs, no gallops, no JVD appreciated LUNG clear to auscultation EXTREMITIES No skin discoloration and No edema. Soft bump to left lower leg over upper pisano. No erythema, excessive warmth or TTP SKIN Skin color, texture, turgor normal, no suspicious rashes or lesions to exposed skin HEPATITIS C SCREENING Never done COLORECTAL CANCER SCREENING due on 02/11/2022 ADVANCE DIRECTIVE DISCUSSION Never done DEPRESSION ASSESSMENT Never done DTAP,TDAP,TD(1 - Tdap) due on 09/27/2023 SHINGRIX VACCINE(1 of 2) due on 09/27/2023 COVID-19 VACCINE(1) due on 09/27/2023 PNEUMOCOCCAL: 65+(2 - PCV) due on 09/27/2023 INFLUENZA(Season Ended) due on 02/16/2023 ANNUAL PCP TEAM CHRONIC DISEASE VISIT due on 09/27/2023 DIABETES SCREEN due on 09/01/2025 LIPID SCREEN due on 01/17/2026 BONE DENSITY Completed ASSESSMENT/PLAN: 1. Hypothyroidism, acquired - ICD9: 244.9, ICD10: E03.9 (primary diagnosis) - Instructed patient on importance of taking on an empty stomach either first thing in the morning or at bedtime. - check TSH in one month - continue current dose of Synthroid 0.100 mg - TSH BLD - LEVOTHYROXINE 100 MCG TABLET - follow-up yearly, sooner if needed - patient has recent labs with her 2. Screening for colon cancer - ICD9: V76.51, ICD10: Z12.11 - FECAL OCCULT BLOOD TEST 3. Subcutaneous mass - ICD9: 782.2, ICD10: R22.9 - offered ultrasound, patient declined at this time - no red flag symptoms or exam finding - red flag symptoms discussed, verbalizes understanding - follow-up if fails to improve to ER with red flag symptoms Ayah Thompson, HEAD OF ETHICS AND COMPLIANCE.WASH TEST CHECKER Prescription instructions reviewed with patient as applicable. Patient advised if symptoms do not improve or if symptoms worsen sooner, to contact their primary care physician. Potential red flag symptoms discussed with the patient. Reviewed appropriate action plan to take if red flag symptoms occur. Patient agreeable to treatment plan. I spent a total of 30 minutes on the date of the service which included preparing to see the patient, [id number] patient care, completing clinical documentation, obtaining and/or reviewing separately obtained history, performing a medically a (more content not included)... [facility] 09-26-2022 History of Presen t illness Narrative 09/26/2022 Patient presents with: Recheck: Recently came back from [place] and was being seen for persistent cough and chest pressure. Increased fatigue. Sees pulmonary 09/27/22 And sees GI in November. SUBJECTIVE: This is a 76 year old that is here today for Above Complaints. Recently moved back from [place] HYPOTHYROIDISM: Has recent blood work. Dropped her synthroid to 6 days a week about one month ago. Taking and tolerating without side effects Reports she has follow-up with color buffer Dr. Martin tomorrow for persistent cough, chest pressure and fatigue. Reports she completed ECHO, stress test and EKG in [place] prior to moving. Patient reports testing was normal Following up with gastroenterology in November for hx of gastroparesis Noticed a lump to left lower leg a few months ago. Sometimes aches. Does not remember any injury. Medications and hx reviewed PAST MEDICAL HISTORY Diagnosis Date Gastroparesis GERD (gastroesophageal reflux disease) Hypothyroidism OA (osteoarthritis) Osteopenia Sleep disorder elavil for intermittent insomnia Tarsal tunnel syndrome of right side ALLERGIES Black Dye, Nickel, and Tylenol [Acetaminophen] MEDICATIONS Current Outpatient Medications Medication Sig levothyroxine (SYNTHROID) 100 mcg tablet Take 1 tablet by mouth once daily. amitriptyline (ELAVIL) 10 mg tablet Take 1 tablet by mouth daily at bedtime. as needed cyanocobalamin (VITAMIN B-12) 1,000 mcg tab Take 1,000 mcg by mouth once daily. Bifidobacterium Infantis (ALIGN) 4 mg cap Take by mouth once daily. Cholecalciferol, Vitamin D3, 25 mcg (1,000 unit) cap Take 1,000 Units by mouth once daily. multivitamin tablet Take 1 tablet by mouth once daily. furosemide (LASIX) 20 mg tablet Take 1 tablet by mouth as needed. for swelling famotidine (PEPCID) 20 mg tablet Take 1 tablet by mouth at bedtime as needed. No current facility-administered medications for this visit. Medications and allergies reviewed by this provider. SOCIAL HISTORY Social History Tobacco Use Smoking status: Never Smokeless tobacco: Never Vaping Use Vaping Use: Never used Substance Use Topics Alcohol use: No Drug use: No REVIEW OF SYSTEMS All other reviewed and negative other than HPI. OBJECTIVE: BP 118/70 Pulse 61 Resp 18 Wt 63.2 kg (139 lb 6.4 oz) SpO2 97% BMI 25.65 kg/m . Vital signs reviewed by this provider. APPEARANCE Well appearing, alert, in no acute distress, well-hydrated, well nourished. EYES PERRLA, conjunctiva and sclera normal. HEART RRR with normal S1 and S2, no murmurs, no gallops, no JVD appreciated LUNG clear to auscultation EXTREMITIES No skin discoloration and No edema. Soft bump to left lower leg over upper pisano. No erythema, excessive warmth or TTP SKIN Skin color, texture, turgor normal, no suspicious rashes or lesions to exposed skin HEPATITIS C SCREENING Never done COLORECTAL CANCER SCREENING due on 02/11/2022 ADVANCE DIRECTIVE DISCUSSION Never done DEPRESSION ASSESSMENT Never done DTAP,TDAP,TD(1 - Tdap) due on 09/27/2023 SHINGRIX VACCINE(1 of 2) due on 09/27/2023 COVID-19 VACCINE(1) due on 09/27/2023 PNEUMOCOCCAL: 65+(2 - PCV) due on 09/27/2023 INFLUENZA(Season Ended) due on 02/16/2023 ANNUAL PCP TEAM CHRONIC DISEASE VISIT due on 09/27/2023 DIABETES SCREEN due on 09/01/2025 LIPID SCREEN due on 01/17/2026 BONE DENSITY Completed ASSESSMENT/PLAN: 1. Hypothyroidism, acquired - ICD9: 244.9, ICD10: E03.9 (primary diagnosis) - Instructed patient on importance of taking on an empty stomach either first thing in the morning or at bedtime. - check TSH in one month - continue current dose of Synthroid 0.100 mg - TSH BLD - LEVOTHYROXINE 100 MCG TABLET - follow-up yearly, sooner if needed - patient has recent labs with her 2. Screening for colon cancer - ICD9: V76.51, ICD10: Z12.11 - FECAL OCCULT BLOOD TEST 3. Subcutaneous mass - ICD9: 782.2, ICD10: R22.9 - offered ultrasound, patient declined at this time - no red flag symptoms or exam finding - red flag symptoms discussed, verbalizes understanding - follow-up if fails to improve to ER with red flag symptoms Ayah Thompson APRN.CNP Prescription instructions reviewed with patient as applicable. Patient advised if symptoms do not improve or if symptoms worsen sooner, to contact their primary care physician. Potential red flag symptoms discussed with the patient. Reviewed appropriate action plan to take if red flag symptoms occur. Patient agreeable to treatment plan. I spent a total of 30 minutes on the date of the service which included preparing to see the patient, [id number] patient care, completing clinical documentation, obtaining and/or reviewing separately obtained history, performing a medically appropriate examination, counseling and educating the patient/family/caregiver, and ordering medications, tests, or procedures. documented in this encounter [facility] 09-12-2022 Miscellaneous Notes Patient calls in and notified that referral was sent to Dr. Krishnamurthy. Patient verbalizes understanding and also reports that she will call back next week to schedule a routine follow up with Ayah PEREZ. Elizabeth Almanzar, RN Message left for patient to return call for update. Referral and face sheet forwarded to Dr Krishnamurthy's office as requested. Referral order placed. Agree, she needs appointment for routine follow up. Has not been seen since 2020 Patient will be back from [place] late this week early next week and has made an Appointment with Dr Krishnamurthy Gastroenterology at [facility] and is asking if you could send them a consult as they are requesting one. As patient has been seen for pressure on chest and cardiology is coming back okay so they are looking at GERD with Gastro. Patient is unable to arrange appointment with you at this time, however when insurance goes back into effect 09/16/2022 she will be scheduling with Ayah. documented in this encounter [facility] 03-21-2022 Miscellaneous Notes Patient telephoned to make aware. Message left to call back for update. Lizbeth Rocha LPN 30 day rx. Sent. Removed myself as PCP since patient is no longer living in [place]. Will continue to provide refills while she is waiting on establish care visit on 04/10. Patient has been identified by name and date of : Yes Patient phones for refill(s): Requested Prescriptions Pending Prescriptions Disp Refills levothyroxine (SYNTHROID) 100 mcg tablet 30 tablet Sig: Take 1 tablet by mouth once daily. Date of last office visit with pcp: 02/07/2021 Follow up appt: None. Now living in [place]. Appointment to establish care in [place] is scheduled for 04/10/2022. Patient asking for enough medication until that appt. Last 2 Encounter Wt Readings: Date: Wt: 02/07/2021 61.2 kg (135 lb) 03/22/2020 59.7 kg (131 lb 9.6 oz) Previous labs/tests for medication: Thyroid: TSH (mIU/L) Date Value 12/03/2021 0.983 Blood Pressure: BUN (mg/dL) Date Value 04/22/2018 18 Sodium (mmol/L) Date Value 04/22/2018 144 Last 1 Encounter BP Readings: Date: BP: 02/07/2021 128/80 Liver Function: ALT (U/L) Date Value 04/22/2018 12 AST (U/L) Date Value 04/22/2018 25 Please advise. Thank you. Elizabeth Almanzar RN documented in this encounter [facility] 12-07-2021 Miscellaneous Notes Faxed to [facility] at [phone] Please fax to her requested pharmacy. [facility] [address] [place] [address] Patient states she will be able to pick it up 12/20/21 Does she have a pharmacy she uses there? Can just fax to the pharmacy. Patient telephoned. Requesting Rx be mailed to their home. Is this ok with you? States she does have a new PCP lined up. Thinks his name Chago Aponte or Maggy. He is at the [facility] in [place], [place]. Lizbeth Rocha LPN Rx for 30 days with 1 refill printed to give her enough medication to find new PCP in [place]. Placed in my outbox. Does she have PCP lined up down there already? See pt message. Johanny Merino Ma documented in this encounter [facility] 12-05-2021 Miscellaneous Notes Pt sent [employer] message notifying her of results below. If questions, to contact office. Johanny Merino Ma ----- Message from Josh Rebolledo MD sent at 12/05/2021 8:01 AM EDT ----- Normal thyroid labs. No change to regimen. documented in this encounter [facility] 09-09-2021 Miscellaneous Notes Called and left a detailed voicemail notifying patient of providers message. Hospital phone number was left in case patient had any questions. Sena Guerrero RN Referral order placed as requested. Patient calls and states that she has bilateral hip pain where she had hip replacement surgery. Patient is worried that this could be bursitis. Patient has scheduled an appointment with orthopedic on Sunday. Asking if provider can order an orthopedic referral and fax to . Please review and advise, Brittany Bautista RN documented in this encounter [facility] Diagnosis Gastroesophageal reflux disease, unspecified whether esophagitis present- Primary [facility] Diagnosis Hypothyroidism, acquired- Primary Unspecified hypothyroidism Screening for colon cancer Special screening for malignant neoplasms, colon Subcutaneous mass Localized superficial swelling, mass, or lump [facility] Diagnosis Bilateral hip pain- Primary Pain in joint, pelvic region and thigh Fall in home, initial encounter Acute midline low back pain without sciatica Thrush Candidiasis of mouth documented in this encounter [facility] Advance Directives No Advanced Directives Records FoundLatest Code Status on File Code Status Date Activated Date Inactivated Comments Full Code 10/09/2016 9:55 AM 10/10/2016 6:27 PM Full Code 07/27/2015 3:38 PM 07/29/2015 3:41 PM DNRCC-Arrest 04/12/2015 1:22 AM 04/12/2015 2:49 PM Detail: No intubation Full Code 04/11/2015 11:47 PM 04/12/2015 1:22 AM Documents on File Type Date Recorded Patient [employer] Advance Directives and Livin g Will 10/29/2017 9:32 AM Power of Market Research Manager Living Will 07/31/2015 6:33 AM 07/27/2015 Documents on File Type Date Recorded Patient [employer] Advance Directives and Livin g Will 10/29/2017 9:32 AM Power of Market Research Manager Living Will 07/31/2015 6:33 AM 07/27/2015 Latest Code Status on File Code Status Date Activated Date Inactivated Comments Full Code 10/09/2016 9:55 AM 10/10/2016 6:27 PM Full Code 07/27/2015 3:38 PM 07/29/2015 3:41 PM DNRCC-Arrest 04/12/2015 1:22 AM 04/12/2015 2:49 PM Full Code 04/11/2015 11:47 PM 04/12/2015 1:22 AM Instructions * Patient Instructions - Rebecca Alicea RN - 10/29/2017 10:24 AM EDT 1. Lasix (furosemide) 20mg daily- only as needed for fluid retention and shortness of breath 2. Call in 1 month with update 3. Return to clinic as needed in this encounter* Patient Instructions - Sindhu Galan MA - 09/25/2017 10:26 AM EDT Nuclear Stress Test: Do not eat or drink after midnight prior to test. No Caffeine 24 hours prior to test. No morning medications, bring them with you to test. Bring a snack you will need to eat during a portion of the test. Lots of waiting bring something to do, approximately 4 hours. Cardiac Perfusion Scan (Medicine): About This Test What is it? A cardiac perfusion scan measures the amount of blood in your heart muscle at rest and after your heart has been made to work hard. During the scan, a camera takes pictures of your heart after a radioactive tracer is injected into a vein in your arm. The tracer travels through the blood and into your heart. As the tracer moves through your heart, areas that have good blood flow absorb the tracer. Areas that do not absorb the tracer may not be getting enough blood or may have been damaged by a heart attack. The pictures show this difference. Two sets of pictures may be made during the test. One set is taken while you are resting. Another set is taken after your heart has been made to work harder (called a stress test). The heart can be stressed by using medicine or exercise. This information is about using medicine to stress the heart. This test is also known by other names, including myocardial perfusion scan, myocardial perfusion imaging, thallium scan, sestamibi cardiac scan, and nuclear stress test. Why is this test done? The test is often done to find out what may be causing chest pain or pressure. It may be done aftera heart attack to see if areas of the heart are not getting enough blood or to find out how much your heart has been damaged from the heart attack. How can you prepare for the test? Tell your doctor if: You take medicine for an erection problem, such as sildenafil (Viagra), tadalafil (Cialis), and vardenafil (Levitra). You may need to take nitroglycerin during this test, which can cause a serious reaction if you have taken a medicine for an erection problem within the past 48 hours. You have had bleeding problems, or if you take aspirin or some other blood thinner. You are or might be . You are . Don't use your breast milk for 1 to 2 days after the scan. Use formula instead. What happens during the test? Resting or baseline scan You will take your top off and be given a gown to wear. Electrodes will be attached to your chest to keep track of your heartbeats. Your arm will be cleaned. You will have a tube, called an IV, going into your arm. A small amount of the radioactive tracer will be put in the IV. You will lie on your back or your stomach on a table with a large camera positioned above your chest. The camera records the tracer's signals as it moves through your blood. The camera does not produce any radiation, so you are not exposed to any additional radiation while the scan is being done. You will be asked to remain very still during each scan, which takes about 5 to 10 minutes. The camera will move to take more pictures at different angles. Several scans will be taken. This test takes about 30 to 40 minutes. Stress scan using medicine The stress scan is done in two parts. In many hospitals, you first have the resting scan. You are then given a medicine that makes your heart work harder and you have another scan. Sometimes the stress scan is done first. You will have a test called an electrocardiogram (EKG or ECG), which takes about 5 to 10 minutes. You may have other EKGs during and after the stress test. Medicine will be put in your IV. It will make your heart work harder. You may get a headache and feel dizzy, flushed, and nauseated from the medicine, but these symptoms usually do not last long. Your heartbeat and blood pressure may be checked. Your symptoms such as chest pain and shortness of breath will be checked. A few minutes after you get the medicine, another small amount of radioactive tracer is injected. You may be given something to reverse the medicine used to make your heart work harder. You will wait for 30 to 40 minutes and then have another resting scan. See the Resting or baselinescan section. This test takes about 30 to 40 minutes. What else should you know about the test? Sometimes more pictures are taken 2 to 4 hours after the stress scan. No electricity passes through your body during the test. There is no danger of getting an electrical shock. What happens after the test? You can go back to your usual activities right away. You will probably be able to go home right away. Drink plenty of fluids for the next 24 hours to help flush the tracer out of your body. If you havekidney, heart, or liver disease and have to limit fluids, talk with your doctor before you increasethe amount of fluids you drink. in this encounter Assessments Diagnosis Diastolic dysfunction Unspecified heart disease PAC (premature atrial contra ction) Supraventricular premature beats Hypothyroidism, unspecified type Diagnosis Diastolic dysfunction - Prim kourtney Unspecified heart disease Other specified hypotension PAC (premature atrial contra ction) Supraventricular premature beats Diagnosis Abnormal Holter monitor find ing Fatigue, unspecified type PVC (premature ventricular c ontraction) Other premature beats Holter monitor, abnormal Diagnosis Palpitations - Primary Abnormal Holter monitor find ing Fatigue, unspecified type PVC (premature ventricular c ontraction) Other premature beats Holter monitor, abnormal PAC (premature atrial contra ction) Supraventricular premature beats Other specified hypotension Diagnosis Throat tightness - Primary Diagnosis Orthostatic hypotension- Primary PAC (premature atrial contraction) Supraventricular premature beats Diastolic dysfunction Unspecified heart disease Diagnosis Palpitations- Primary Orthostatic hypotension Diastolic dysfunction Unspecified heart disease Diagnosis SOB (shortness of breath) Shortness of breath Discharge Instructions The following attachments cannot be sent through Care Everywhere. * ANAPHYLACTIC REACTION (YAKUT) * ALLERGIC REACTION (YAKUT) in this encounter History of Present Illness * Reji Miller MD - 10/16/2018 12:59 PM EDT [facility] [id number] [facility] [address] [facility] [id number] Office Visit Tarsha Hardy (73 y.o. ( 1945) female) Date of service - 10/16/18 Primary healthcare providers: Wyatt Duong MD (Family); Wyatt Duong* (Referring)? ASSESSMENT: Orthostatic intolerance Stable. Palpitations Likely due to benign atrial ectopy. Stable Impaired relaxation noted on echocardiogram Euvolemic. PRN Lasix per Dr. Schumacher recommendation RECOMMENDATIONS: Patient is stable from a cardiac standpoint. I made no changes in current medical regimen. Follow-up EP clinic annually. Sooner if condition changes. Chief complaint/Reason for visit: Follow-up visit for orthostatic intolerance HISTORY: I had the pleasure of seeing Tarsha Hardy in the arrhythmia clinic. Patient has been stable since last visit. Continues to have chronic fatigue. Palpitations are very mild and not life altering. Patient did see Dr. Schumacher for impaired relaxation, limited treatment options available, he did recommend PRN Lasix for fluid retention, and stated the patient did not need to follow with him any longer. Patient denies any syncope or near syncope. No angina. Has had somegastrointestinal problems related to previous Oumar procedure. Patient is following in [facility] for this problem. I did discuss treatment options with the patient. I did offer as needed Inderal 10 mg for palpitations. At this point patient feels that the symptoms are very mild and declined. If orthostatic hypotension becomes a problem in the future, she may be a candidate for midodrine however currently, bloodpressures are very stable probably related to some increased weight. Dr. Schumacher recommended avoiding salt loading or Florinef. I independently reviewed the following studies: ECG -normal sinus rhythm, no acute changes. Document generated by [employer] voice recognition dictation system to expedite reporting. Please excuse any syntax, spelling or grammatical errors caused by [employer] dictation. Medication list reviewed on 10/16/18 12:59 PM: Current Outpatient Medications: cholecalciferol, vitamin D3, (VITAMIN D3) 1,000 unit capsule, Take 1,000 Units by mouth daily, Disp: , Rfl: cyanocobalamin (vitamin B-12) 500 MCG tablet, Take 1,000 mcg by mouth daily., Disp: , Rfl: famotidine (PEPCID) 20 MG tablet, Take 20 mg by mouth daily as needed ., Disp: , Rfl: furosemide (LASIX) 20 MG tablet, Take 1 (one) tablet (20 mg total) by mouth daily as needed., Disp:15 tablet, Rfl: 1 levothyroxine (SYNTHROID, LEVOTHROID) 100 MCG tablet, Take 100 mcg by mouth once daily Except Sunday., Disp: , Rfl: multivitamin capsule, Take 1 capsule by mouth daily, Disp: , Rfl: BIFIDOBACTERIUM INFANTIS (ALIGN ORAL), Take 1 capsule by mouth daily, Disp: , Rfl: ibuprofen (ADVIL,MOTRIN) 200 MG tablet, Take 2 tablets by mouth every 4 (four) hours as needed for pain., Disp: , Rfl: Allergies Allergen Reactions Aspirin GI Intolerance Augmentin [Amoxicillin-Pot Clavulanate] GI Intolerance Hydromorphone Itching Lyrica [Pregabalin] Other (See Comments) messed up my eye sight Nickel Itching and Other (See Comments) Nickel in ear rings makes her ears seep and bleed Oxycodone GI Intolerance Peppermint Swelling Only the peppermint lip gloss Other Eye Liner, Mascara Aciphex [Rabeprazole] Lack of therapeutic effect Bacitracin Pt sates when this was placed in her nose preoperatively she had nosebleeds for several months Doxycycline Other (See Comments) Dizzy, GI problems Gabapentin Other (See Comments) made me crazy Latex Rash Omeprazole Rash Pantoprazole Rash Ranitidine Rash Zoledronic Acid GI Intolerance Other reaction(s): Muscle Spasm Past Medical History: Diagnosis Date Arthritis Back pain Cataract removed Complication of anesthesia body jerking uncontrollably after awakening Fibromyalgia, primary Gastroparesis GERD (gastroesophageal reflux disease) Headache thought to be related to arthritis in neck Hypothyroidism MRSA (methicillin resistant Staphylococcus aureus) feb 2016 Neck pain Osteopathia Peripheral neuropathy Right Foot Prolapsed uterus Past Surgical History: Procedure Laterality Date ARTHROPLASTY HIP TOTAL Left 07/27/2015 Procedure: LEFT TOTAL HIP ARTHROPLASTY [id number]; Surgeon: Cristopher Naik MD; Location: [facility] Main OR; Service: ARTHROPLASTY HIP TOTAL Right 10/09/2016 Procedure: RIGHT TOTAL HIP ARTHROPLASTY ; Surgeon: Cristopher Naik MD; Location: [facility] Main OR; Service: DILATION AND CURETTAGE OF UTERUS EYE SURGERY 12/12/1999 PHACOEMULSIFICATION OF CATARACT AND POSTERIOR CHAMBER INTRAOCULAR LENS IMPLANTATION, OD. EYE SURGERY Left 02/06/2005 Left upper lid Armenta's muscle resection ptosis repair. Oumar Fundiplasty PINNACLE CUP-DEPUY Left 07/27/2015 Procedure: PINNACLE CUP-DEPUY; Surgeon: Cristopher Naik MD; Location: [facility] Main OR; Service: STOMACH SURGERY SUMMIT STEM-DEPUY Left 07/27/2015 Procedure: SUMMIT STEM-DEPUY; Surgeon: Cristopher Naik MD; Location: [facility] Main OR; Service: Family History Problem Relation Age of Onset Heart disease Mother Heart disease Father Heart disease Sister Heart disease Brother Heart disease Sister Social History Tobacco Use Smoking status: Never Smoker Smokeless tobacco: Never Used Substance Use Topics Alcohol use: No Drug use: No Review of Systems: The following system(s) were reviewed. Pertinent positive and negative findings are noted in the HPI. Constitution: Appropriate for age. No acute distress HENT: No new eye or ear complaints. Cardiovascular: No angina. No syncope. No edema. Respiratory: Denies acute dyspnea or cough Endocrine: No heat or cold intolerance. Skin: No concerns. Musculoskeletal: Appropriate for age, no acute MSK pain. Gastrointestinal: Denies acute hematochezia, melena, abdominal bloating Neurological: Denies acute neuro defecits Psychiatric/Behavioral: no acute concerns. Hematologic - Denies acute bleeding problems Thromboembolic Signs/Symptoms: No acute problems. Bleeding signs/symptoms: No acute problems Vitals: Vitals: 10/16/18 1234 BP: 122/74 BP Location: Left arm Patient Position: Sitting BP Cuff Size: Adult Pulse: 75 Weight: 60.2 kg (132 lb 11.2 oz) Height: 5' 2 PHYSICAL EXAM: Constitution: No apparent distress. Alert. ENT: within normal limits. Oropharynx - normal; Moist membranes. Normal appearance ears and nose. Head: Normocephalic. Eyes: Pupils are equal, round, and reactive to light. No scleral icterus. Conjunctive-normal. Eyelids normal. Neck: Neck supple. No thyromegaly or masses. JVP - within normal limits. Cardiovascular: RRR. Palpation - PMI unremarkable. Ascultation - Normal heart sounds. Carotid pulses symmetric. Pedal pulses symmetric. Extremities: No edema. Pulses- symmetric. Pulmonary/Chest: normal respiratory effort. Breath sounds are normal. Normal palpitation of chest. No acute problems. Abdominal: Soft. Bowel sounds are normal. No acute findings. Neurological: Cranial nerves - within normal limits. Deep tendon reflexes - within normal limits for age. No acute findings. Skin: Skin is warm. Normal turgor Musculoskeletal: Gait - within normal limits for age. No joint swelling Psychiatric: Mood and affect - normal, age appropriate. Cooperative. No acute problems. Relevant Labs: Lab Results Component Value Date GLUCOSE 110 (H) 01/29/2017 CALCIUM 9.1 01/29/2017 NA 141 01/29/2017 K 4.2 01/29/2017 CL 104 01/29/2017 BUN 24 01/29/2017 CREATININE 0.63 01/29/2017 Lab Results Component Value Date WBC 8.70 01/29/2017 HGB 13.1 01/29/2017 HCT 40.6 01/29/2017 MCV 94.0 01/29/2017 PLT 226 01/29/2017 RBC 4.32 01/29/2017 @LASTBNP@ @LASTINR@ No results found for: CKTOTAL, CKMB, HSCRP, TROPONINI Amount/Complexity of Data: (pertinent results listed in HPI). -Clinical lab tests reviewed on 10/16/18 12:59 PM -Tests in Radiology section of CPT reviewed on 10/16/18 12:59 PM -Tests in medicine section of CPT reviewed on 10/16/18 12:59 PM -Old records (EMR/ outside) were reviewed on 10/16/18 12:59 PM - Medications reviewed on 10/16/18 12:59 PM -Transcriptions reviewed on 10/16/18 12:59 PM Reji Miller MD, [facility]LY [facility], [facility]. Cardiac Electrophysiology, Cardiovascular Disease. [facility]. documented in this encounter* Reji Miller MD - 12/06/2018 9:43 AM EDT [facility] [address] [facility] [address] [facility] [id number] Cardiac Electrophysiology Clinic Office Visit Tarsha Hardy (73 y.o. ( 1945) female) Date of service - 12/06/18 Primary healthcare providers: Physician No (Family); No ref. provider found (Referring)? ASSESSMENT: Orthostatic intolerance Stable. Palpitations Likely due to benign atrial ectopy. Stable Impaired relaxation noted on echocardiogram Euvolemic. PRN Lasix per Dr. Schumacher recommendation RECOMMENDATIONS: Patient is stable from a cardiac standpoint. I made no changes in current medical regimen. Refill provided on as needed Lasix. Check Chem-7. Annual EP clinic visit. Chief complaint/Reason for visit: Follow-up visit for orthostatic intolerance and diastolic dysfunction HISTORY: I had the pleasure of seeing Tarsha Hardy in the arrhythmia clinic. Patient has been stable since her last visit. Somewhat distraught on today's visit, her cat recently related to heart failure. Overall patient is done well otherwise. Continues to have mild dyspnea on exertion which is chronic. No edema. No significant palpitations. Takes as needed Lasix, 3 pills over the last 2 weeks, as recommended by Dr. Schumacher. Denies syncope or near syncope. Cardiopulmonary examination today is unremarkable. Patient is euvolemic. During deep breathing for her pulmonary exam, patient developed some lightheadedness likely related to hyperventilation. Pulsewas normal. Lightheadedness resolved quickly. I independently reviewed the following studies: ECG -sinus rhythm, no acute changes. Document generated by [employer] recognition dictation system to expedite reporting. Please excuse any syntax, spelling or grammatical errors caused by [employer] dictation. Medication list reviewed on 12/06/18 9:43 AM: Current Outpatient Medications: BIFIDOBACTERIUM INFANTIS (ALIGN ORAL), Take 1 capsule by mouth daily, Disp: , Rfl: cholecalciferol, vitamin D3, (VITAMIN D3) 1,000 unit capsule, Take 1,000 Units by mouth daily, Disp: , Rfl: cyanocobalamin (vitamin B-12) 500 MCG tablet, Take 1,000 mcg by mouth daily., Disp: , Rfl: famotidine (PEPCID) 20 MG tablet, Take 20 mg by mouth daily as needed ., Disp: , Rfl: ibuprofen (ADVIL,MOTRIN) 200 MG tablet, Take 2 tablets by mouth every 4 (four) hours as needed for pain., Disp: , Rfl: levothyroxine (SYNTHROID, LEVOTHROID) 100 MCG tablet, Take 100 mcg by mouth once daily Except Sunday., Disp: , Rfl: multivitamin capsule, Take 1 capsule by mouth daily, Disp: , Rfl: furosemide (LASIX) 20 MG tablet, Take 1 (one) tablet (20 mg total) by mouth daily as needed., Disp:15 tablet, Rfl: 1 Allergies Allergen Reactions Aspirin GI Intolerance Augmentin [Amoxicillin-Pot Clavulanate] GI Intolerance Hydromorphone Itching Lyrica [Pregabalin] messed up my eye sight Nickel Itching Nickel in ear rings makes her ears seep and bleed Other Eye Liner, Mascara Oxycodone GI Intolerance Peppermint Swelling Only the peppermint lip gloss Aciphex [Rabeprazole] Lack of therapeutic effect Bacitracin Pt sates when this was placed in her nose preoperatively she had nosebleeds for several months Doxycycline Dizzy, GI problems Gabapentin made me crazy Latex Rash Omeprazole Rash Pantoprazole Rash Ranitidine Rash Zoledronic Acid GI Intolerance Muscle Spasm Past Medical History: Diagnosis Date Arthritis Back pain Cataract removed Complication of anesthesia body jerking uncontrollably after awakening Fibromyalgia, primary Gastroparesis GERD (gastroesophageal reflux disease) Headache thought to be related to arthritis in neck Hypothyroidism MRSA (methicillin resistant Staphylococcus aureus) feb 2016 Neck pain Osteopathia Peripheral neuropathy Right Foot Prolapsed uterus Past Surgical History: Procedure Laterality Date ARTHROPLASTY HIP TOTAL Left 07/27/2015 Procedure: LEFT TOTAL HIP ARTHROPLASTY [id number]; Surgeon: Cristopher Naik MD; Location: [facility] Main OR; Service: ARTHROPLASTY HIP TOTAL Right 10/09/2016 Procedure: RIGHT TOTAL HIP ARTHROPLASTY ; Surgeon: Cristopher Naik MD; Location: [facility] Main OR; Service: DILATION AND CURETTAGE OF UTERUS EYE SURGERY 12/12/1999 PHACOEMULSIFICATION OF CATARACT AND POSTERIOR CHAMBER INTRAOCULAR LENS IMPLANTATION, OD. EYE SURGERY Left 02/06/2005 Left upper lid Armenta's muscle resection ptosis repair. Oumar Fundiplasty PINNACLE CUP-DEPUY Left 07/27/2015 Procedure: PINNACLE CUP-DEPUY; Surgeon: Cristopher Naik MD; Location: [facility] Main OR; Service: STOMACH SURGERY SUMMIT STEM-DEPUY Left 07/27/2015 Procedure: SUMMIT STEM-DEPUY; Surgeon: Cristopher Naik MD; Location: [facility] Main OR; Service: Family History Problem Relation Age of Onset Heart disease Mother Heart disease Father Heart disease Sister Heart disease Brother Heart disease Sister No Known Problems Maternal Grandmother No Known Problems Maternal Grandfather No Known Problems Paternal Grandmother No Known Problems Paternal Grandfather No Known Problems Other Social History Tobacco Use Smoking status: Never Smoker Smokeless tobacco: Never Used Substance Use Topics Alcohol use: No Drug use: No Review of Systems: The following system(s) were reviewed. Pertinent positive and negative findings are noted in the HPI. Constitution: Appropriate for age. No acute distress HENT: No new eye or ear complaints. Cardiovascular: No angina. No syncope. No edema. Respiratory: Denies acute dyspnea or cough Endocrine: No heat or cold intolerance. Skin: No concerns. Musculoskeletal: Appropriate for age, no acute MSK pain. Gastrointestinal: Denies acute hematochezia, melena, abdominal bloating Neurological: Denies acute neuro defecits Psychiatric/Behavioral: no acute concerns. Hematologic - Denies acute bleeding problems Thromboembolic Signs/Symptoms: No acute problems. Bleeding signs/symptoms: No acute problems Vitals: Vitals: 12/06/18 0923 BP: 135/77 BP Location: Left arm Patient Position: Sitting BP Cuff Size: Adult Pulse: 67 Weight: 60.2 kg (132 lb 11.2 oz) Height: 5' 2 PHYSICAL EXAM: Constitution: No apparent distress. Alert. ENT: within normal limits. Oropharynx - normal; Moist membranes. Normal appearance ears and nose. Head: Normocephalic. Eyes: Pupils are equal, round, and reactive to light. No scleral icterus. Conjunctive-normal. Eyelids normal. Neck: Neck supple. No thyromegaly or masses. JVP - within normal limits. Cardiovascular: regular rate and rhythm. Palpation - PMI unremarkable. Ascultation - Normal heart sounds. Carotid pulses symmetric. Pedal pulses symmetric. Extremities: no edema. Pulses- symmetric. Pulmonary/Chest: normal respiratory effort. Breath sounds are normal. Normal palpitation of chest. No acute problems. Abdominal: Soft. Bowel sounds are normal. No acute findings. Neurological: Cranial nerves - within normal limits. Deep tendon reflexes - within normal limits for age. No acute findings. Skin: Skin is warm. Normal turgor Musculoskeletal: Gait - normal for age. No joint swelling Psychiatric: Mood and affect - normal, age appropriate. Cooperative. No acute problems. Relevant Labs: Lab Results Component Value Date GLUCOSE 110 (H) 01/29/2017 CALCIUM 9.1 01/29/2017 NA 141 01/29/2017 K 4.2 01/29/2017 CL 104 01/29/2017 BUN 24 01/29/2017 CREATININE 0.63 01/29/2017 Lab Results Component Value Date WBC 8.70 01/29/2017 HGB 13.1 01/29/2017 HCT 40.6 01/29/2017 MCV 94.0 01/29/2017 PLT 226 01/29/2017 RBC 4.32 01/29/2017 @LASTBNP@ @LASTINR@ No results found for: CKTOTAL, CKMB, HSCRP, TROPONINI Amount/Complexity of Data: (pertinent results listed in HPI). -Clinical lab tests reviewed on 12/06/18 9:43 AM -Tests in Radiology section of CPT reviewed on 12/06/18 9:43 AM -Tests in medicine section of CPT reviewed on 12/06/18 9:43 AM -Old records (EMR/ outside) were reviewed on 12/06/18 9:43 AM - Medications reviewed on 12/06/18 9:43 AM -Transcriptions reviewed on 12/06/18 9:43 AM Reji Miller MD, [facility], [facility]. Cardiac Electrophysiology, Cardiovascular Disease. [facility] Physicians. documented in this encounter Summary Purpose Family History No Family History Records FoundNo Family History Records FoundNo Family History Records FoundNo Family History Records FoundNo Family History Records FoundNo Family History Records FoundNo Family History Records FoundNo Family History Records Found Reason for Referral Status Reason Specialty Diagnoses / Procedures Referred By Contact Referred To Contact Closed Cardiology Diagnoses SOB (shortness of breath) Procedures Echocardiogram complete Reji Miller MD [address] [place] [address] Specialty Diagnoses / Procedures Referred By Contac t Referred To Contact Orthopedics Diagnoses 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 Procedures CONSULT TO ORTHOPAEDICS OFFICE/OUTPATIENT [facility] 60-74 MINUTES Josh Rebolledo MD [address] [place] [address] Referral ID Status Reason Start Date Expiration Date Visits Requested Visits Authorized [id number] Authorized PCP Requested Referral 09/09/2021 09/09/2022 1 1 Specialty Diagnoses / Procedures Referred By Patrick t Referred To Contact Gastroenterology Diagnoses Gastroesophageal reflux disease, unspecified whether esophagitis present Procedures CONSULT TO GASTROENTEROLOGY OFFICE/OUTPATIENT [facility] 60-74 MINUTES Josh Rebolledo MD [address] [place] [address] Referral ID Status Reason Start Date Expiration Date Visits Requested Visits Authorized [id number] Pending Review PCP Requested Referral 09/11/2022 09/11/2023 1 1 Specialty Diagnoses / Procedures Referred By Contac t Referred To Contact [facility] Diagnoses Fall in home, initial encounter Procedures CONSULT TO PHYSICAL THERAPY PHYSICAL THERAPY EVALUATION HIGH COMPLEX 45 MINS Josh Rebolledo MD [address] [place] [address] [facility] [address] [place] [address] Referral ID Status Reason Start Date Expiration Date Visits Requested Visits Authorized [id number] Pending Review Auto-Generat ed Referral 02/08/2023 02/08/2024 1 1 Specialty Diagnoses / Procedures Referred By Contac t Referred To Contact XR IMAGING Diagnoses Fall in home, initial encounter Acute midline low back pain without sciatica Procedures XR LUMBAR GENERAL 3V AP/LAT/L5-S1 RADEX SPINE LUMBOSACRAL 2/3 VIEWS Josh Rebolledo MD [address] [place] [address] [place] [id number] Referral ID Status Reason Start Date Expiration Date V isits Requested Visits Authorized [id number] Closed Auto-Generate d Referral 02/08/2023 03/09/2024 1 1 Specialty Diagnoses / Procedures Referred By Contac t Referred To Contact XR IMAGING Diagnoses Bilateral hip pain Fall in home, initial encounter Procedures XR HIP BILATERAL 5V PEL/AP/LAT EACH HIP RADEX HIPS BILATERAL WITH PELVIS MINIMUM 5 VIEWS Josh Rebolledo MD [address] [place] [address] [place] [id number] Referral ID Status Reason Start Date Expiration Date V isits Requested Visits Authorized [id number] Closed Auto-Generate d Referral 02/08/2023 03/09/2024 1 1 Additional Source Comments Assessment & Plan Note - Scott Schumacher MD - 10/29/2017 10:31 AM EDTAssessment & Plan Note - Scott Schumacher MD - 10/29/2017 10:31 AM EDT Miscellaneous Notes (unrecog nized section and content) Associated Problem(s): Hypothyroidism May account for some of this, but has been well controlled and is on synthroid with close lab follow-ups. Associated Problem(s): PAC (premature atrial contraction) Benign. Treatment would undoubtedly lower her bp further. Sees dean. Associated Problem(s): Diastolic dysfunction Here for impaired relaxation on echo and dyspnea. Her echo shows a normal left atrium and only impaired relaxation, the beginnings of some diastolic dysfunction. Her biggest problem appears more c/w POTS. Unfortunately, he sodium and fluid intake has resulted in mild fluid retention, and she has a JVP of 10-12 cm h20 with mild abdominal distention, but no LE edema. I told her to back off on ibuprofen and reduce her sodium intake to <2G but continue her fluid intake. Perhaps her Sweet spot for being intravascularly replete is ~120 lbs. We will call her in 1 month to see how she is doing. I would avoid midodrine, fludrocortisone, etc given worsening HF. I would give her lasix 20 mg PRN #15 and only take if she gains weight and becomes SOB. If no better in 1 month, will do CPX. No f/u planned. in this encounter Reason for Visit (unrecogniz ed section and content) Reason Comments Follow-up Lightheaded, Fatigue Status Reason Specialty Diagnoses / Procedures Referred By Contact Referred To Contact Closed Cardiology Diagnoses SOB (shortness of breath) Procedures Echocardiogram complete Reji Miller MD [address] [place] [address] Reason Comments Referral Request Reason Comments Results Reason Onset Date Comments Refill Request 03/21/2022 Reason Comments Patient Question Reason Comments Recheck Recently came back f [facility] and was being seen for persistent cough and chest pressure. Increased fatigue. Sees pulmonary 09/27/22 And sees GI in November. Reason Onset Date Comments Release of Information 12/30/2022 Reason Comments issues resulting from fall from a fall a pprox 1 month ago Mouth/Lip Problem Patient thinks she h as INFORMATION SOURCE (unrecogn ized section and content) DATE CREATED AUTHOR AUTHOR'S OPAL ATION 02/16/2019 [facility] DATE CREATED AUTHOR AUTHOR'S ORGANIZ ATION 03/19/2019 [facility] DATE CREATED AUTHOR AUTHOR'S ORGANIZ ATION 12/02/2019 [facility] DATE CREATED AUTHOR AUTHOR'S ORGANIZ ATION 12/14/2020 [facility] DATE CREATED AUTHOR AUTHOR'S ORGANIZ ATION 06/30/2021 [facility] DATE CREATED AUTHOR AUTHOR'S ORGANIZ ATION 12/30/2022 [facility] DATE CREATED AUTHOR AUTHOR'S ORGANIZ ATION 06/04/2023 [facility] Source Comments (unrecognize d section and content) In the event this informatio n is protected by the Federal Confidentiality of Alcohol and Drug Abuse Patient Records regulations: The Federal rules restrict any use of the information to criminally investigate or prosecute any alcohol or drug abuse patient.[facility] the event this information is protected by the Federal Confidentiality of Alcohol and Drug Abuse Patient Records regulations: The Federal rules restrict any use of the information to criminally investigate or prosecute any alcohol or drug abuse patient.[facility] the event this information is protected by the Federal Confidentiality of Alcohol and Drug Abuse Patient Records regulations: The Federal rules restrict any use of the information to criminally investigate or prosecute any alcohol or drug abuse patient.[facility] the event this information is protected by the Federal Confidentiality of Alcohol and Drug Abuse Patient Records regulations: The Federal rules restrict any use of the information to criminally investigate or prosecute any alcohol or drug abuse patient.[facility] Hospital[facility] the event this information is protected by the Federal Confidentiality of Alcohol and Drug Abuse Patient Records regulations: The Federal rules restrict any use of the information to criminally investigate or prosecute any alcohol or drug abuse patient.[facility] Hospital[facility] the event this information is protected by the Federal Confidentiality of Alcohol and Drug Abuse Patient Records regulations: The Federal rules restrict any use of the information to criminally investigate or prosecute any alcohol or drug abuse patient.[facility] the event this information is protected by the Federal Confidentiality of Alcohol and Drug Abuse Patient Records regulations: The Federal rules restrict any use of the information to criminally investigate or prosecute any alcohol or drug abuse patient.[facility] the event this information is protected by the Federal Confidentiality of Alcohol and Drug Abuse Patient Records regulations: The Federal rules restrict any use of the information to criminally investigate or prosecute any alcohol or drug abuse patient.[facility] the event this information is protected by the Federal Confidentiality of Alcohol and Drug Abuse Patient Records regulations: The Federal rules restrict any use of the information to criminally investigate or prosecute any alcohol or drug abuse patient.[facility] the event this information is protected by the Federal Confidentiality of Alcohol and Drug Abuse Patient Records regulations: The Federal rules restrict any use of the information to criminally investigate or prosecute any alcohol or drug abuse patient.[facility] Care Teams (unrecognized sec tion and content) Blanket Inspector Relationship Specialty Start Date End Date Josh Rebolledo MD [address] [place] [address] PCP - General Family Practice 02/07/21 Enmanuel Acosta [address] [address] Physician Gastroenterology 01/21/18 Blanket Inspector Relationship Specialty Start Date End Date Josh Rebolledo MD [address] [place] [address] PCP - General Family Practice 02/07/21 Enmanuel Acosta [address] [address] Physician Gastroenterology 01/21/18 Blanket Inspector Relationship Specialty Start Date End Date Enmanuel Acosta [address] [address] Physician Gastroenterology 01/21/18 Blanket Inspector Relationship Specialty Start Date End Date Josh Rebolledo MD [address] [place] [address] PCP - General Family Medicine 09/11/22 Enmanuel Acosta [address] [address] Physician Gastroenterology 01/21/18 Blanket Inspector Relationship Specialty Start Date End Date Josh Rebolledo MD [address] [place] [address] PCP - General Family Medicine 09/11/22 Enmanuel Acosta [address] [address] Physician Gastroenterology 01/21/18 Blanket Inspector Relationship Specialty Start Date End Date Josh Rebolledo MD [address] [place] [address] PCP - General Family Medicine 09/11/22 nEmanuel Acosta [address] [address] Physician Gastroenterology 01/21/18 Blanket Inspector Relationship Specialty Start Date End Date Josh Rebolledo MD [address] [place] [address] PCP - General Family Medicine 09/11/22 Enmanuel Acosta [address] [address] Physician Gastroenterology 01/21/18 Blanket Inspector Relationship Specialty Start Date End Date Josh Rebolledo MD [address] [place] [address] PCP - General Family Medicine 09/11/22 Enmanuel Acosta [address] [address] Physician Gastroenterology 01/21/18 FOR RECORDS PERTAINING TO PATIENTS WHO ARE OR HAVE BEEN ENROLLED IN A CHEMICAL DEPENDENCY/SUBSTANCEABUSE PROGRAM, SOME INFORMATION MAY BE OMITTED. This clinical summary was aggregated from multiple sources. Caution should be exercised in using it in the provision of clinical care. This summary normalizes information from multiple sources, and as a consequence, information in this document may materially change the coding, format and clinical context of patient data. In addition, data may be omitted in some cases. CLINICAL DECISIONS SHOULD BE BASED ON THE PRIMARY CLINICAL RECORDS. [employer] provides no warranty or guarantee of the accuracy or completeness of information in this document.
[2023-08-20 11:51] LABS: Erythrocyte Sedimentation Rate 12 mm/hr (0-30)
[2023-08-20 12:06] LABS: Vitamin B12 871 pg/mL (211-911)
[2023-08-20 12:48] LABS: Amylase 95 U/L (25-115); CRP 3.64 mg/L (0.0-3.0); Free T3 2.6 pg/mL (2.18-3.98); Lipase 30 U/L (13-75); T4 Free Direct 1.65 ng/dL (0.76-1.46); Thyroid Stim Hormone (TSH) 0.39 uIU/mL (0.358-3.74)
[2023-08-21 11:09] LABS: Anti-Centromere B Ab <0.2 AI (0.0-0.9); Anti-Chromatin <0.2 AI (0.0-0.9); Anti-Jo <0.2 AI (0.0-0.9); Anti-Scleroderma-70 AB <0.2 AI (0.0-0.9); Anti-dsDNA Ab 1 IU/mL (0-9); RNP Ab <0.2 AI (0.0-0.9); SJOGREN'S Anti-SS-A test < 0.2 AI (0.0-0.9); SJOGREN'S Anti-SS-B test < 0.2 AI (0.0-0.9); Smith Ab <0.2 AI (0.0-0.9)
[2023-08-24 01:07] LABS: ACCA 22 units (0-90); AMCA 13 units (0-100); Albumin 3.8 g/dL (2.9-4.4); Alpha-1-Globulins 0.2 g/dL (0.0-0.4); Alpha-2-Globulins 0.7 g/dL (0.4-1.0); Anti-Parietal Cell AB, QN 1.6 Units (0.0-20.0); Chromogranin A 99.4 ng/mL (0.0-101.8); Cytoplasmic Ab (C-ANCA) <1:20 titer (Neg:<1:20); Endomysial Antibody IgA Negative (Negative); Gamma Globulin 0.8 g/dL (0.4-1.8); Gastrin, Serum 10 pg/mL (0-115); IMMUNOFIXATION RESULT,S Comment: (.); Immunoglobulin A 237 mg/dL (64-422); Immunoglobulin E 27 IU/mL (6-495); Immunoglobulin G 935 mg/dL (586-1602); Immunoglobulin M 66 mg/dL (26-217); PROEL- TOTAL PROTEIN 6.5 g/dL (6.0-8.5); Perinuclear Ab (P-ANCA) <1:20 titer (Neg:<1:20); gASCA 3 units (0-50); t-Transglutaminase IgA <2 U/mL (0-3)
[2023-09-12 14:52] LABS: ALCA 2 units (0-60)
== END 2023-08-20 23:59 | disposition home or self-care (01) ==
LOC: LAB 11:03
PROVIDERS: PCP Nurse Practitioner Primary Care; Referring Provider Internal Medicine Gastroenterology; Visit Provider Internal Medicine Gastroenterology
DX: K21.9 Gastro-esophageal reflux disease without esophagitis (principal); R68.81 Early satiety; R00.2 Palpitations; R10.9 Unspecified abdominal pain
CPT/HCPCS: 36415; 82140; 82150; 82607; 82746; 82784; 82785; 82941; 83516; 83690; 84165; 84439; 84443; 84481; 85652; 86036; 86140; 86225; 86235; 86255; 86256; 86316; 86334; 86340; 86671

== ENCOUNTER → 2023-12-06 | Outpatient (CLI) | payer MEDICARE, SELFPAY ==
--- NOTE | 2023-12-06 17:44 | CT_ITS ---
STUDY: CT ABDOMEN AND PELVIS WITH CONTRAST REASON FOR EXAM: Female, 78 years old. Abd pain, bloating, early satiety. Prior recent fundoplication. RADIATION DOSAGE (If Supplied By Facility): CTDIvol = ( 14.92 ) mGy, DLP = ( 791.91 ) mGycm TECHNIQUE: Transaxial images were obtained from the dome of the diaphragm to the symphysis pubis without oral contrast. IV 100mL Isovue-300 was administered. Sagittal and coronal images were reconstructed. Individualized dose optimization techniques were used for this CT. COMPARISON: Comparison is made with prior study dated November 11, 2020. FINDINGS: Minimal increased linear marking in the left lower lobe suggestive of linear atelectasis and/or scarring. The visualized portions of the heart are within normal limits. 2 mm cyst in the posterior aspect of the right lobe of the liver superiorly. Normal gallbladder and extrahepatic biliary system. Normal spleen. Normal pancreas. Normal bilateral adrenal glands. Stable bilateral parapelvic cysts. No evidence of hydronephrosis. Normal visualized stomach. Normal small intestine. Moderate amount of fecal material is seen in the colon. The appendix is visualized and appears normal. There is scattered atherosclerotic calcification of the abdominal aorta, without a demonstrated aneurysm. Normal inferior vena cava. Normal retroperitoneum. Normal urinary bladder. Stable atrophy of the uterus. Normal abdominal wall. Status post bilateral total hip replacement limiting the visualization of the structures in the pelvis due to beam hardening artifacts. CT/Abdomen/Pelvis WITH Contrast IMPRESSION: Stable bilateral parapelvic renal cysts. No acute abnormality is seen. Stable examination. Electronically Signed: Karson Cochran MD at 11:08 EDT ,
[2023-12-06 18:07] LABS: CREATININE FINGERSTICK < 1.0 mg/dL (0.55-1.02); EGFR FINGERSTICK > 60.0000 mL/min (>60)
== END | disposition home or self-care (01) ==
LOC: CT 17:41
PROVIDERS: PCP Family Medicine; Referring Provider Internal Medicine Gastroenterology; Visit Provider Internal Medicine Gastroenterology
DX: R10.9 Unspecified abdominal pain (principal); R68.81 Early satiety; R14.0 Abdominal distension (gaseous)
CPT/HCPCS: 74177; Q9967

== ENCOUNTER → 2023-12-10 | Outpatient (CLI) | payer MEDICARE, SELFPAY ==
[2023-12-10 15:36] LABS: Color, Urine Yellow (Yellow); Glucose, Dipstick Normal (Normal); Ketone-Dipstick Negative (Negative); Leukocyte Esterase-Dipstick 25 /ul (Negative); Nitrite-Dipstick Negative (Negative); Occult Blood-Urine Negative /ul (Negative); Protein-Dipstick Negative (Negative); Urine Bilirubin Dipstick Negative (Negative); Urine Clarity Clear (Clear); Urine Urobilinogen Normal (Normal); Urine pH 6.5 (5.0 - 8.0)
[2023-12-10 17:55] LABS: Absolute Lymphocyte Count 1.65 X10^3/uL (0.83-4.51); Absolute Neutrophil Count 3.5 X10^3/uL (2.0-7.7); Basophil# 0.03 X10^3/uL; Basophil% 0.5 % (0-1); Eosinophils% 1.7 % (0-5); Hematocrit 40.8 % (37-47); Lymphocyte # 1.65 X10^3/ul (0.83-4.51); Lymphocyte % 28.3 % (19-41); Mean Corp Hgb Conc 31.9 g/dL (32-36); Mean Corpuscular Hgb 29.8 pg (27.0-32.0); Mean Corpuscular Volume 93.6 fL (81-99); Mean Platelet Vol. 11.4 fl (6.2-12.0); Monocyte# 0.54 X10^3/uL; Monocyte% 9.2 % (0-10); NRBC Flagged by Analyzer 0 % (0-5); Neutrophil # 3.51 X10^3/uL (2.7-7.7); Neutrophil % 60.1 % (47-70); Platelet Count 237 K/mm3 (150-450); RBC Distribution Width CV 12.8 % (11.6-14.6); RBC Distribution Width SD 44.1 fl (35.1-43.9); Red Blood Count 4.36 M/mm3 (4.2-5.4); White Blood Count 5.8 K/mm3 (4.4-11.0)
[2023-12-10 18:21] LABS: Erythrocyte Sedimentation Rate 17 mm/hr (0-30)
[2023-12-10 18:23] LABS: CRP 5.82 mg/L (0.0-3.0)
== END | disposition home or self-care (01) ==
PROVIDERS: PCP Family Medicine; Referring Provider Family Medicine; Visit Provider Family Medicine
DX: R35.0 Frequency of micturition (principal); R51.9 Headache, unspecified
CPT/HCPCS: 36415; 81002; 85025; 85652; 86140; 87077; 87086; 87088; 87186

== ENCOUNTER → 2024-01-04 | Outpatient (CLI) | payer MEDICARE, SELFPAY ==
[2024-01-04 11:26] LABS: CRP 5.09 mg/L (0.0-3.0)
== END | disposition home or self-care (01) ==
PROVIDERS: PCP Family Medicine; Referring Provider Ophthalmology; Visit Provider Ophthalmology
DX: R51.9 Headache, unspecified (principal)
CPT/HCPCS: 36415; 86140

== ENCOUNTER → 2024-01-24 | Outpatient (CLI) | payer MEDICARE, SELFPAY ==
[2024-01-24 08:52] LABS: AST(SGOT) 19 U/L (15-37); Alanine Aminotransfer ALT/SGPT 18 U/L (13-56); Albumin, Serum 3.3 g/dL (3.2-5.0); Alkaline Phosphatase 78 U/L (45-117); Bilirubin, Direct 0.19 mg/dL (0.00-0.30); Cholesterol 200 mg/dL (200); Globulin 3.5 g/dL (2.2-4.2); High Density Lipoprotein 75 mg/dL; Protein, Total 6.8 g/dL (6.4-8.2); Triglycerides 70 mg/dL; Very Low Density Lipoprotein 14 mg/dL (5-40)
== END | disposition home or self-care (01) ==
PROVIDERS: PCP Family Medicine; Referring Provider Nurse Practitioner Family; Visit Provider Nurse Practitioner Family
DX: R07.9 Chest pain, unspecified (principal); E78.5 Hyperlipidemia, unspecified
CPT/HCPCS: 36415; 80061; 80076

== ENCOUNTER → 2024-01-30 | Outpatient (CLI) | payer MEDICARE, SELFPAY ==
[2024-01-30 14:09] LABS: T4 Free Direct 1.54 ng/dL (0.76-1.46)
== END | disposition home or self-care (01) ==
LOC: LAB 13:06
PROVIDERS: PCP Family Medicine; Referring Provider Family Medicine; Visit Provider Family Medicine
DX: E03.9 Hypothyroidism, unspecified (principal)
CPT/HCPCS: 36415; 84439; 84443

== ENCOUNTER → 2024-01-31 | Outpatient (CLI) | payer MEDICARE, SELFPAY ==
[2024-01-31 09:04] LABS: Color, Urine Yellow (Yellow); Glucose, Dipstick Normal (Normal); Ketone-Dipstick Negative (Negative); Leukocyte Esterase-Dipstick 25 /ul (Negative); Nitrite-Dipstick Negative (Negative); Occult Blood-Urine Negative /ul (Negative); Protein-Dipstick Negative (Negative); Urine Bilirubin Dipstick Negative (Negative); Urine Clarity Clear (Clear); Urine Urobilinogen Normal (Normal)
--- NOTE | 2024-01-31 10:50 | STRESSREP_ITS ---
Stress Test Report Date: 01/31/2024 Procedure: Exercise tolerance test/imaging study Indications: Chest pain Consent: Per the patient Procedure: The patient exercised on a Jose G protocol for 4 minutes and 30 seconds achieving a peak heart rate of 136 bpm (95% predicted maximal heart rate) with a peak blood pressure 146/70 mmHg and a peak MET capacity of 7.0 METs. The baseline ECG demonstrated sinus rhythm with nonspecific ST changes. The peak exercise ECG was nondiagnostic secondary to baseline abnormality. There were no cardiac dysrhythmias pretest, during exercise, or recovery. The functional capacity was considered average for age. There was no complaint of chest discomfort during exercise or recovery. The examination was discontinued secondary to target heart rate being achieved. The patient was injected with 11.8 mCi of technetium 99m Cardiolite and subsequently rest SPECT Cardiolite nuclear imaging was obtained in the h orizontal long, vertical long, and short axis views. Post-exercise, the patient was injected with 33.6 mCi of technetium 99m Cardiolite and subsequently stress SPECT Cardiolite nuclear imaging was obtained in the horizontal long, vertical long, and short axis views. A gated Cardiolite study at peak stress was obtained. Rest and stress SPECT Cardiolite nuclear imaging status post realignment, no rmalization, and attenuation correction, demonstrates the appearance of relative uniform tracer uptake and myocardial perfusion appearing within normal limits. There is end systolic thickening and brightening. The gated Cardiolite study demonstrates myocardial thickening and inward wall motion. The reported LVEF is 77%. Impression: 1. Technically adequate (percent predicted maximal heart rate greater than 85%) exercise tolerance test 2. Peak exercise ECG nondiagnostic secondary to baseline abnormality 3. There were no cardiac dysrhythmias pretest, during exercise, or recovery 4. Rest and stress SPECT Cardiolite nuclear imaging demonstrate relative uniform tracer uptake and myocardial perfusion appearing within normal limits. 5. The gated Cardiolite study reports an LVEF of 77%. This note was generated with [employer] software. It may contain incorrect words, spelling, and punctuation that were not noted in checking the note before signing.
== END | disposition home or self-care (01) ==
PROVIDERS: PCP Family Medicine; Referring Provider Nurse Practitioner Family; Visit Provider Nurse Practitioner Family
DX: R30.0 Dysuria (principal); I50.32 Chronic diastolic (congestive) heart failure; R06.00 Dyspnea, unspecified; R07.9 Chest pain, unspecified; R53.83 Other fatigue
CPT/HCPCS: 78452; 81002; 87086; 87088; 93017; A9500

== ENCOUNTER → 2024-06-04 | Outpatient (CLI) | payer MEDICARE, SELFPAY ==
--- NOTE | 2024-06-04 09:56 | RAD_ITS ---
STUDY: X-RAY - LUMBAR SPINE REASON FOR EXAM: Female, 78 years old. LOW BACK PAIN TECHNIQUE: 5 view(s) of the lumbar spine were obtained. COMPARISON: 03/05/2023 FINDINGS: Normal lumbar lordosis. Mild dextroscoliosis centered at L2. There is a normal alignment of the vertebrae. Normal vertebral bodies and endplates. Normal disc space heights. There is multilevel facet hypertrophy. The soft tissue structures are unremarkable. RAD/L/S Spine Min 4 Views IMPRESSION: Mild dextroscoliosis with degenerative disc disease. MRI may be useful. Electronically Signed: John Benitez MD at 8:37 EST ,
--- NOTE | 2024-06-04 10:05 | RAD_ITS ---
STUDY: X-RAY - CERVICAL SPINE REASON FOR EXAM: Female, 78 years old. CERVICALGIA TECHNIQUE: 5 view(s) of the cervical spine were obtained. COMPARISON: None FINDINGS: Normal anterior atlantoaxial articulation. Normal odontoid process. Normal cervical lordosis. 2 mm of anterolisthesis of C4 on C5. Normal vertebral bodies and endplates. Normal disc space heights. Normal visualized intervertebral neuroforamina. The soft tissue structures are unremarkable. RAD/Cerv Spine 4 or 5 Views IMPRESSION: Mild degenerative disc disease with 2 mm of anterolisthesis of C4 on C5. MRI may be useful. Electronically Signed: John Benitez MD at 8:40 EST ,
== END | disposition home or self-care (01) ==
LOC: RAD 09:53
PROVIDERS: PCP Family Medicine; Referring Provider Nurse Practitioner Family; Visit Provider Nurse Practitioner Family
DX: M54.2 Cervicalgia (principal); M54.50 Low back pain, unspecified
CPT/HCPCS: 72050; 72110

== ENCOUNTER → 2024-06-10 | Outpatient (CLI) | payer MEDICARE, SELFPAY ==
[2024-06-10 12:17] LABS: Erythrocyte Sedimentation Rate 5 mm/hr (0-30)
[2024-06-10 12:26] LABS: Absolute Lymphocyte Count 1.29 X10^3/uL (0.83-4.51); Absolute Neutrophil Count 2.4 X10^3/uL (2.0-7.7); Basophil# 0.02 X10^3/uL; Basophil% 0.5 % (0-1); Eosinophil# 0.07 X10^3/uL; Eosinophils% 1.6 % (0-5); Hemoglobin 12.6 g/dL (12.0-15.0); Lymphocyte # 1.29 X10^3/ul (0.83-4.51); Lymphocyte % 29.6 % (19-41); Mean Corp Hgb Conc 32.3 g/dL (32-36); Mean Corpuscular Hgb 29.7 pg (27.0-32.0); Mean Platelet Vol. 10.6 fl (6.2-12.0); Monocyte# 0.59 X10^3/uL; Monocyte% 13.5 % (0-10); NRBC Flagged by Analyzer 0 % (0-5); Neutrophil # 2.38 X10^3/uL (2.7-7.7); Neutrophil % 54.6 % (47-70); Platelet Count 192 K/mm3 (150-450); RBC Distribution Width CV 13.1 % (11.6-14.6); RBC Distribution Width SD 43.9 fl (35.1-43.9); Red Blood Count 4.24 M/mm3 (4.2-5.4); White Blood Count 4.4 K/mm3 (4.4-11.0)
[2024-06-10 12:57] LABS: ALB/GLOB Ratio 0.9 RATIO (0.9-2.4); AST(SGOT) 41 U/L (15-37); Alanine Aminotransfer ALT/SGPT 41 U/L (13-56); Albumin, Serum 3.2 g/dL (3.2-5.0); Alkaline Phosphatase 89 U/L (45-117); Anion Gap 2 (5-15); BUN 15 mg/dL (7-18); BUN/Creat Ratio 23.7 RATIO (10-20); Calcium,Total 9.3 mg/dL (8.5-10.1); Chloride 110 mmol/L (98-107); Creatinine, Serum 0.63 mg/dL (0.55-1.02); EST Glomerular Filtration Rate 97 mL/min (>60); Est Glom Filt Rate - Afr Amer 117 mL/min (>60); Globulin 3.6 g/dL (2.2-4.2); Glucose 91 mg/dL (74-106); Potassium 3.9 mmol/L (3.5-5.1); Protein, Total 6.8 g/dL (6.4-8.2); Sodium Level 141 mmol/L (136-145)
== END | disposition home or self-care (01) ==
LOC: LAB 11:48
PROVIDERS: PCP Family Medicine; Referring Provider Internal Medicine Gastroenterology; Visit Provider Internal Medicine Gastroenterology
DX: R10.9 Unspecified abdominal pain (principal)
CPT/HCPCS: 36415; 80053; 85025; 85652; 86140

== ENCOUNTER → 2024-06-13 | Outpatient (CLI) | payer MEDICARE, SELFPAY | END | disposition home or self-care (01) | PROVIDERS: PCP Family Medicine; Referring Provider Family Medicine; Visit Provider Family Medicine | DX: R30.0 Dysuria (principal) | CPT/HCPCS: 87086; 87088 ==

== ENCOUNTER → 2024-06-20 | Outpatient (CLI) | payer MEDICARE, SELFPAY ==
--- NOTE | 2024-06-20 11:59 | RAD_ITS ---
EXAM: XR CHEST, 2 VIEWS CLINICAL INDICATION: R SIDE CHEST PAIN TECHNIQUE: Frontal and lateral views of the chest. COMPARISON: Two-view chest 05/22/2023 FINDINGS: LUNGS AND PLEURAL SPACES: Unremarkable. No consolidation or edema. No pneumothorax. No effusion. HEART: Unremarkable. Cardiac silhouette not enlarged. MEDIASTINUM: Central airways and mediastinal contour are unremarkable. BONES/JOINTS: Degenerative changes of the spine. No acute fracture. SOFT TISSUES: Unremarkable. RAD/Chest PA and Lateral IMPRESSION: No acute findings in the chest. Electronically Signed: Tristen Hurtado MD at 7:58 EST ,
[2024-06-20 12:58] LABS: Rheumatoid Factor < 10.0 IU/mL (<15)
[2024-06-21 13:07] LABS: CCP IgG Antibodies 2 units (0-19)
== END | disposition home or self-care (01) ==
LOC: LAB 11:49
PROVIDERS: PCP Family Medicine; Referring Provider Family Medicine; Visit Provider Family Medicine
DX: M25.50 Pain in unspecified joint (principal); R07.9 Chest pain, unspecified
CPT/HCPCS: 36415; 71046; 86200; 86431

== ENCOUNTER → 2024-08-15 | Outpatient (CLI) | payer MEDICARE, SELFPAY ==
[2024-08-15 12:41] LABS: CRP 6.21 mg/L (0.0-3.0)
[2024-08-15 13:02] LABS: Erythrocyte Sedimentation Rate 9 mm/hr (0-30)
== END | disposition home or self-care (01) ==
LOC: BFHLAB 10:21
PROVIDERS: PCP Family Medicine; Visit Provider Family Medicine
DX: R51.9 Headache, unspecified (principal)
CPT/HCPCS: 36415; 85652; 86140

== ENCOUNTER → 2024-08-21 | Outpatient (CLI) | payer MEDICARE, SELFPAY ==
--- NOTE | 2024-08-21 09:42 | ECHOD_ITS ---
Reason For Study Reason For Study: DYSPNEA Procedure This was a 2D Doppler, Color Flow transthoracic echocardiogram. Exam performed in department. Left Ventricle Mild concentric left ventricular hypertrophy. The left ventricular ejection fraction is 60 %. Stage 1 diastolic dysfunction. Right Ventricle Normal right ventricle. Atria The left and right atria are normal. Mitral Valve Trivial mitral valve insufficiency. Tricuspid Valve Normal tricuspid valve. Aortic Valve Trisinus/trileaflet aortic valve. Pulmonic Valve The pulmonic valve is not well visualized. Great Vessels Normal sized aortic root. Pericardium/Pleural No pericardial effusion. MMode/2D Measurements & Calculations LVIDd: 4.0 cm IVSd: 0.92 cm LVOT diam: 2.0 cm LVIDs: 3.0 cm LVPWd: 1.2 cm LVOT area: 3.2 cm2 RVDd: 3.3 cm FS: 24.5 % Ao root diam: 2.8 cm LAV(MOD-sp4): 22.5 ml LVAd ap4: 18.6 cm2 LVLd ap4: 7.9 cm EDV(MOD-sp4): 39.7 ml EDV(sp4-el): 37.1 ml LVAs ap4: 11.5 cm2 LVLs ap4: 6.0 cm ESV(MOD-sp4): 20.2 ml ESV(sp4-el): 18.7 ml EF(MOD-sp4): 49.2 % EF(sp4-el): 49.5 % SV(MOD-sp4): 19.5 ml SV(sp4-el): 18.4 ml LA A4 area: 11.2 cm2 SI(MOD-sp4): 11.8 ml/m2 LA dimension(2D): 2.5 cm RA A4 area: 14.3 cm2 Time Measurements MV dec time: 0.18 sec Doppler Measurements & Calculations MV E max herber: 53.6 cm/sec Lat Peak E' Herber: 10.9 cm/sec Med Peak E' Herber: 11.1 cm/sec MV A max herber: 76.2 cm/sec E/E' lat: 4.9 E/E' med: 4.8 MV E/A: 0.70 MV V2 max: 90.1 cm/sec Ao V2 max: 129.9 cm/sec MV max P.2 mmHg MV dec slope: 302.9 cm/sec2 Ao max P.8 mmHg MV V2 mean: 54.4 cm/sec Ao V2 mean: 87.2 cm/sec MV mean P.3 mmHg Ao mean P.5 mmHg MV V2 VTI: 24.5 cm Ao V2 VTI: 31.7 cm AV (velocity ratio): 0.88 MVA(VTI): 3.6 cm2 TANISHA(I,D): 2.8 cm2 TANISHA(V,D): 2.6 cm2 LV V1 max: 108.0 cm/sec SV(LVOT): 88.2 ml PA V2 max: 97.6 cm/sec LV V1 max P.7 mmHg PA V2 mean: 68.8 cm/sec LV V1 mean P.9 mmHg LV V1 mean: 81.5 cm/sec LV V1 VTI: 27.8 cm ECHO/Echo Complete Interpretation Summary The left ventricular ejection fraction is 60 %. Stage 1 diastolic dysfunction. Ordering Physician: Cristopher Vegas Referring Physician: Cristopher Vegas Performed By: Naheed Felix RCS
== END | disposition home or self-care (01) ==
LOC: CVS 09:41
PROVIDERS: PCP Family Medicine; Referring Provider Internal Medicine Cardiovascular Disease; Visit Provider Internal Medicine Cardiovascular Disease
DX: R06.09 Other forms of dyspnea (principal); R06.02 Shortness of breath
CPT/HCPCS: 93306

== ENCOUNTER → 2025-02-04 | Outpatient (CLI) | payer MEDICARE, SELFPAY ==
[2025-02-04 13:11] LABS: AST(SGOT) 24 U/L (<=31); Alanine Aminotransfer ALT/SGPT 16 U/L (<=34); Albumin, Serum 3.9 g/dL (3.4-4.8); Alkaline Phosphatase 80 U/L (35-104); Bilirubin, Direct 0.12 mg/dL (0.00-0.30); Cholesterol 201 mg/dL (<=200); Globulin 2.7 g/dL (2.2-4.2); Low Density Lipoprotein Calc. 102 mg/dL; Triglycerides 141 mg/dL; Very Low Density Lipoprotein 28 mg/dL (5-40); cholesterol:hdl ratio screen 2.83
== END | disposition home or self-care (01) ==
LOC: LAB 11:58
PROVIDERS: PCP Family Medicine; Referring Provider Nurse Practitioner Family; Visit Provider Nurse Practitioner Family
DX: E78.00 Pure hypercholesterolemia, unspecified (principal)
CPT/HCPCS: 36415; 80061; 80076

== ENCOUNTER 2025-02-12 10:47 | Emergency (ER) | payer MEDICARE, SELFPAY ==
[2025-02-12 10:48] VITALS: BP 127/64; PULSE 66; RESP 14; TEMP 36.1; O2SAT 98; BMI 26.3
--- NOTE | 2025-02-12 11:10 | EKG12_ITS ---
Test Reason : Blood Pressure : */* mmHG Vent. Rate : 59 BPM Atrial Rate : 59 BPM P-R Int : 112 ms QRS Dur : 68 ms QT Int : 414 ms P-R-T Axes : * 34 18 degrees QTcB Int : 409 ms Sinus bradycardia Nonspecific ST abnormality Abnormal ECG Confirmed by DOMINIK CELAYA ([id number]), marketing editor ERLINDA TEMPLE ([id number]) on 02/17/2025 6:29:05 AM Referred By: Alvaro Confirmed By: DOMINIK CELAYA
--- NOTE | 2025-02-12 11:27 | RAD_ITS ---
PROCEDURE: SHOULDER MIN 2 VIEWS 02/12/2025 REASON FOR EXAM: PAIN x1 week. NKI. TECHNIQUE: SHOULDER MIN 2 VIEWS Laterality: Right FINDINGS: BONES: No acute fracture or focal osseous lesion. JOINTS: No dislocation. The joint spaces are preserved. SOFT TISSUES: Calcification along the humeral head margin in the supraspinatus tendon region, just barely seen on the prior study. RAD/Shoulder min 2 Views IMPRESSION: 1. No acute osseous abnormality. 2. Findings suggest rotator cuff calcific tendinopathy. Reading Location: [id number]
--- NOTE | 2025-02-12 11:39 | EDS_ITS ---
HPI <JAIDA Messina - Last Filed: 02/12/25 15:17> History of Present Illness Chief Complaint: Upper Extremity Injury Narrative Narrative: Patient presenting today with pain into her right shoulder she has had over the last week. She reports that she was helping her lift a 40 pound carton of water to put on a shelf and began to have pain to the area later that night. She does have some pain that radiates into her right hand. She denies any direct injury to the area. She denies paresthesias. She is right-handed. She reports chronic neck and upper back pain that has not been worse. She denies fevers or chills. PFSH <JAIDA Messina - Last Filed: 02/12/25 15:17> [facility] Medical History Macular degeneration Temporal arteritis Gastroparesis Wears hearing aid Wears glasses Thyroid disease Back pain Injury of back Migraine headache Chronic cough History of pain when walking Hx of echocardiogram (~10/04/20) History of stress test (~10/08/17) Cardiology follow-up encounter History of irregular heartbeat Asthma Chronic neck and back pain Difficulty balancing when standing Severe headache Fatigue Shoulder pain Hemorrhoids Scarring of lung Arthritis Dyspnea on exertion Chest pain Dizziness Palpitations Gastroparesis Peripheral neuropathy GERD (gastroesophageal reflux disease) Diastolic CHF, chronic Tarsal tunnel syndrome of right side Fibromyalgia Hypothyroidism Home Medications ?Medication ?Instructions ?Recorded ?Last Taken ?Type multivitamin 1 tab PO DAILY 10/21/19 Unkn own History levothyroxine 100 mcg tablet 100 mcg PO MOTUWETHFRSA 0 11/22/20 12/30/20 History 100 MCG furosemide 20 mg tablet (Lasix) 20 mg PO DAILY PRN 06/09 Unknown History cholecalciferol (vitamin D3) 25 25 mcg PO DAILY Unknown History mcg (1,000 unit) capsule mecobalamin (vitamin B12) 10,000 10,000 mcg subcut QMO NTH 07/28/24 Unknown History mcg solution for injection hydrocodone-acetaminophen 5-325mg 1 tab PO Q6H 2 days #7 TABLETS 02/12/25 Unknown Rx 5mg-325mg ketorolac 10 mg tablet 10 mg PO Q8H 4 days #12 tabs 02/12/25 Unknown Rx Allergy/AdvReac Type Severity Reaction Status Date / Time Environmental Allergies: Allergy Intermediate Blisters, Verified 02/04/25 11:08 Uncoded itching latex Allergy Intermediate rash Verified 02/04/25 11:08 nickel Allergy Intermediate sores, Verified 02/04/25 11:08 bleeding, infection sodium lauryl sulfate Allergy Intermediate canker Verified 02/04/25 11:08 sores grass pollen Allergy Mild Itching Verified 02/04/25 11:08 poison leodan extract Allergy RASH, Verified 02/04/25 11:08 ITCHING Family History Mother Myocardial infarction, Onset Age: 57 Father Myocardial infarction, Onset Age: 79 Brother Myocardial infarction Sister Myocardial infarction Breast cancer COPD (chronic obstructive pulmonary disease) Surgical History History of back surgery History of dilation and curettage History of hip replacement History of bilateral total hip arthroplasty History of eye surgery History of Oumar fundoplication Social History household members: spouse housing: house Smoking Status: Never smoker alcohol intake: never substance use type: does not use caffeine: Yes Type: coffee Number of servings: 1 ROS <JAIDA Messina - Last Filed: 02/12/25 15:17> ROS ED Constitutional Constitutional ED: Denies chills or fever(s) Cardiovascular Cardiovascular: Denies chest pain Respiratory/Chest Respiratory/Chest: Denies dyspnea Gastrointestinal Gastrointestinal: Denies abdominal pain, nausea or vomiting Musculoskeletal Musculoskeletal: Reports arthralgias Integumentary Denies rash Neurologic Neurologic: Denies paresthesias or weakness EXAM <JAIDA Messina - Last Filed: 02/12/25 15:17> Physical Exam Const Vital Signs: 02/12/25 10:48 Temperature 97 F L Temperature Source Temporal Pulse Rate 66 Respiratory Rate 14 Blood Pressure 127/64 H Blood Pressure Mean 85 Pulse Ox 98 Oxygen Delivery Method Room Air Positive well nourished, well developed and no apparent distress General Appearance ED: well developed HEENT Reports normocephalic and head/scalp atraumatic Mouth ED: Yes moist mucous membranes normal Eyes PERRL and EOMs intact bilaterally Neck full ROM and supple General: Negative for tenderness Chest Wall inspection of chest normal Resp normal respiratory effort and clear to auscultation bilaterally Cardio regular rate and regular rhythm Back/Spine normal ROM and normal to inspection Back/Spine Narrative: Tenderness to the right trapezius and right rhomboids. Extremity normal to inspection and full ROM Extremity Narrative: Generalized tenderness to the right shoulder, tenderness to the right trapezius muscle. 5/5 strength and sensation to the bilateral upper extremities. Right radial pulse 2+, good cap refill, sensation intact. No significant tenderness along the right clavicle. Neuro oriented x3, CN's II-XII intact bilaterally, moves all extremities, no focal motor deficits and no sensory deficits noted Sensorium / Orientation: awake and alert Psych mental status grossly normal and thought process normal Skin no rashes or lesions noted and no wounds [facility] <JAIDA Messina - Last Filed: 02/12/25 15:17> [facility] Narrative Medical decision making narrative: Patient presenting today with pain to her right shoulder she has had over the last 7 to 9 days after she was helping her lift a 40 [address] to [address] on a shelf. He was doing the majority of the lifting but she still noticed pain later that night. She denies any direct injury to her shoulder. Her right upper extremity is neurovascularly intact. Exam is not consistent with a septic joint. She has a lot of muscular tenderness to her right upper back especially along the right trapezius muscle. X-ray of the right shoulder obtained and reveals rotator cuff calcific tendinopathy. No fracture. She was given Toradol here and reports improvement of her pain. She can alternate Tylenol and ibuprofen as needed at home for her pain. I did also write her for a few Herrick to use as needed. Recommended she follow-up with her PCP, have also given her an orthopedic referral. She will be discharged home in stable condition. <Dr. Omayra Meehan MD - Last Filed: 02/12/25 16:44> [facility] Narrative Medical decision making narrative: Patient presenting today with pain to her right shoulder she has had over the last 7 to 9 days after she was helping her lift a [address] to [address] on a shelf. He was doing the majority of the lifting but she still noticed pain later that night. She denies any direct injury to her shoulder. Her right upper extremity is neurovascularly intact. Exam is not consistent with a septic joint. She has a lot of muscular tenderness to her right upper back especially along the right trapezius muscle. X-ray of the right shoulder obtained and reveals rotator cuff calcific tendinopathy. No fracture. She was given Toradol here and reports improvement of her pain. She can alternate Tylenol and ibuprofen as needed at home for her pain. I did also write her for a few Herrick to use as needed. Recommended she follow-up with her PCP, have also given her an orthopedic referral. She will be discharged home in stable condition. Patient seen and evaluated with BILL. I personally interviewed and examined the patient. I was involved in all aspects of patient's orders, interpretation of results, and treatment. Agree with history, ROS and physical exam as above. Patient denies any chest pain or shortness of breath. I do not think this is shoulder pain secondary to ACS. She had pain after helping lift a heavy object. She is able to range her shoulder fully. I do not suspect a septic joint or any ligamentous tear. X-ray with no fracture. Recommended RICE therapy at home. Patient discharged from the Emergency Department. I do not feel that the patient's evaluation reveals any acute reason for admission at this time. I instructed them to either follow- up with their primary care physician or promptly return to the Emergency Department for reevaluation should symptoms worsen or new symptoms develop. I explained what symptoms would indicate the need to return to the emergency department. Shared decision making was used. The patient voiced understanding of the treatment plan and is agreeable with it. Clinical impression Right shoulder pain Discharge Plan Triage Chief Complaint: Upper Extremity Injury ED Midlevel Provider: Rosita Marquis ED Provider: Omayra Meehan Dx/Rx/DC Orders Clinical Impression: Shoulder pain, right, Trapezius muscle strain Instructions: ED Back Sprain/Strain, ED RICE Prescriptions: New hydrocodone-acetaminophen 5-325 mg tablet 1 tab PO Q6H 2 Days Qty: 7 0RF ketorolac 10 mg tablet 10 mg PO Q8H 4 Days Qty: 12 0RF No Action multivitamin Tablet 1 tab PO DAILY cholecalciferol (vitamin D3) 25 mcg (1,000 unit) capsule 25 mcg PO DAILY furosemide [Lasix] 20 mg tablet 20 mg PO DAILY PRN mecobalamin (vitamin B12) 10,000 mcg recon soln 10,000 mcg subcut QMONTH levothyroxine 100 mcg tablet 100 mcg PO MOTUWETHFRSA Primary Care Provider: Sagar Monroe Referrals: Gregorio Cabrera MD [Med Staff - Active Staff] - 1 Week if not improving Sagar Monroe DO [Primary Care Provider] - 5-7 Days Activity Restrictions/Additional Instructions: Follow-up with your PCP in the next 5 to 7 days, I have also referred you to orthopedics if you do not have any improvement of your pain. You can alternate Tylenol and ibuprofen as needed. Ice the area. Print Language: Belgian Disposition Disposition: Home, Self Care Discharge Date/Time: 02/12/25 14:08
[2025-02-12 12:59] VITALS: BP 150/70; PULSE 52; RESP 16; O2SAT 100
== END 2025-02-12 14:08 | disposition home or self-care (01) ==
PROVIDERS: Emergency Provider Student in an Organized Health Care Education/Training Program; PCP Family Medicine; Visit Provider Student in an Organized Health Care Education/Training Program
DX: S29.012A Strain of muscle and tendon of back wall of thorax, initial encounter (principal); I50.32 Chronic diastolic (congestive) heart failure; M25.511 Pain in right shoulder; X50.0XXA Overexertion from strenuous movement or load, initial encounter; Y93.89 Activity, other specified; E03.9 Hypothyroidism, unspecified; Z79.890 Hormone replacement therapy; Z96.643 Presence of artificial hip joint, bilateral
CPT/HCPCS: 73030; 93005; 96372; 99282

== ENCOUNTER → 2025-03-05 | Outpatient (CLI) | payer MEDICARE, SELFPAY ==
--- NOTE | 2025-03-05 10:23 | MRI_ITS ---
PROCEDURE: SPINE CERVICAL (ROUTINE) 03/05/2025 REASON FOR EXAM: PAIN, RADICULOPATHY X6 WEEKS TECHNIQUE: Procedure Code: MRISP Modality: MR Procedure: SPINE CERVICAL (ROUTINE) Multiplanar and multisequence images were obtained without IV contrast administration. COMPARISON: Cervical spine x-ray 06/04/2024. FINDINGS: Vertebrae: Cervical vertebral body heights are preserved. Bone marrow signal is unremarkable. Alignment: Normal. No spondylolisthesis. Spinal Cord: Cervical spinal cord is of normal size and signal intensities. Structures at the foramen magnum are unremarkable. C2-3: Unremarkable C3-4: Unremarkable C4-5: Left facet joint arthropathy. Mild left foramina stenosis. No right foraminal or canal stenosis. C5-6: Disc osteophyte complex measures 4 mm. Right foraminal disc herniation measures 4 mm causing severe right foramina stenosis. Mild canal stenosis. C6-7: A 1 mm disc osteophyte complex. No significant foraminal or canal stenosis. C7-T1: Unremarkable MRI/Spine Cervical (Routine) IMPRESSION: Severe right foramina stenosis at C5-C6. No significant canal stenosis. Reading Location: [id number]
== END | disposition home or self-care (01) ==
PROVIDERS: PCP Family Medicine; Referring Provider Student in an Organized Health Care Education/Training Program; Visit Provider Student in an Organized Health Care Education/Training Program
DX: M54.12 Radiculopathy, cervical region (principal)
CPT/HCPCS: 72141